=== PATIENT | female | born 1985 | race Caucasian/White ===

== ENCOUNTER 2023-08-02 22:51 | Observation (INO) | payer OTHER, SELFPAY ==
[2023-08-02 16:15] VITALS: BP 124/81
[2023-08-02 16:35] LABS: % Basophils 0.5 % (0-2); % Eosinophils 1.4 % (0-6); % Immature Granulocytes 0.5 % (0-0.5); % Lymphocytes 31.1 % (20.5-51.1); % Monocytes 6.9 % (1.7-9.3); % Neutrophils 59.6 % (42.2-75.2); Absolute Eosinophils 0.1 10^3/uL (0-0.7); Absolute Lymphocytes 1.8 10^3/uL (1.2-3.4); Absolute Monocytes 0.4 10^3/uL (0.1-0.6); Absolute Neutrophils 3.4 10^3/uL (1.4-6.5); Hematocrit 35.2 % (37.0-47.0); Hemoglobin 12.3 g/dL (12.0-16.0); Mean Corp Hgb Conc. 34.9 g/dL (33.0-37.0); Mean Corpuscular Volume 91.7 fL (81.0-99.0); Mean Platelet Volume 8.1 fL (7.4-10.4); Nucleated Red Blood Cells % 0 %; Platelet Count 253 10^3/uL (130-400); Red Blood Cell Count 3.84 10^6/uL (4.20-5.40); Red Cell Dist. Width 12.4 % (11.5-14.5); White Blood Cell Count 5.7 10^3/uL (4.8-10.8)
[2023-08-02 16:44] LABS: HCG, Serum Qualitative Screen Negative
[2023-08-02 16:47] LABS: ALT (SGPT) 13 U/L (0-35); AST (SGOT) 19 U/L (14-36); Albumin 3.6 g/dl (3.5-5.0); Alkaline Phosphatase 66 U/L (38-126); Blood Urea Nitrogen 9 mg/dl (7-17); Calcium 9.2 mg/dl (8.4-10.2); Carbon Dioxide 26 mmol/L (22-30); Chloride 100 mmol/L (98-107); Glucose 98 mg/dl (70-99); Potassium 3.9 mmol/L (3.5-5.1); Sodium 136 mmol/L (135-145); Total Bilirubin 0.5 mg/dl (0.2-1.3); eGFR > 60.00
[2023-08-02 17:04] LABS: COVID-19 Antigen Negative (Negative)
[2023-08-02 17:23] VITALS: BMI 28.1
[2023-08-02 17:57] VITALS: BP 125/70
[2023-08-02 18:00] VITALS: BP 120/66
--- NOTE | 2023-08-02 18:46 | ED.GENMED ---
History of Present Illness
General
Chief Complaint: Headache
Source: patient
Time Seen by Provider: 08/02/23 18:38
Travel History
Have you had any contact with someone who has COVID-19?: No
Do you have any symptoms of coronavirus? Fever > 100 degrees, chills, cough, shortness of breath, sore throat, loss of taste or smell, muscle aches, or headache?: No
History of Present Illness
History of Present Illness:
38-year-old female with past medical history of cluster headaches and chronic migraines, optic neuritis, bipolar disorder/anxiety, hypothyroidism, celiac disease and GERD presenting to the emergency department for evaluation of an acute exacerbation
of her chronic headaches stating that since this morning she has had left-sided headache typical of her usual migraine/cluster headache accompanied with sinus congestion and visual disturbance within the left eye. Patient states that once she
starts to get the visual disturbance within her eyes she normally requires treatment at the ER. Patient attempted to intramuscular doses of sumatriptan hand and a Nurtec however did not have any relief with this with last medication being taken
around 1 PM. Patient has no other acute neurologic symptoms including focal weakness or numbness, chest pain, palpitations, fevers, neck pain or stiffness or any other concerns. She notes that this headache is very typical of her usual and states
that there are no different symptoms than her typical migraine/cluster type headache.
Past History
Past History
ED Past Medical History: Asthma, GERD, Hypothyroidism, Psychiatric (Anxiety, depression, bipolar), Other (Chronic back pain, celiac disease, IBS, PCOS, pneumonia, Cluster headaches, Colitis) and Other (Positive MISTY)
ED Past Surgical History: Cholecystectomy, Orthopedic (Right knee surgery) and Tonsilectomy
Social History
Tobacco: Non-smoker
Alcohol: None
Drug: None
Personal:
Living: with family
Employment: Employed
Family History
Family History: Other (Mother with coronary artery disease and breast cancer)
Review of Systems
Review of Systems
All Other Systems: ROS reviewed and negative except as documented in HPI and ROS
Phy Exam
Physical Exam
Physical Exam:
GENERAL: Alert , sitting in dark room with sunglasses on
EYE: conjunctiva clear, pupils 4 mm bilateral, PERRL, EOMI, patient does flinch when the light was shined into the right eye but did not flinch when the light was shined into the left eye
Head: Normocephalic atraumatic
NECK: Supple, no meningismus
ENT: mmm.
LUNGS: no acute respiratory distress
NEUROLOGICAL: Alert and oriented x 3, moves all extremities
SKIN: Warm and dry, skin intact.
MUSCULOSKELETAL: well perfused.
PSYCH: Normal and appropriate interaction.
Scores
Heart Failure Risk
Heart Failure Risk Score: Not Applicable
Heart Score for Chest Pain Patients
STEMI patient?: Not applicable
Withdrawal Assessment of Alcohol
Withdrawal Assessment Completed?: Not applicable
Course
Orders/Labs/Results
Orders:
Orders
08/02/23 16:18
Test Result ONCE
08/02/23 16:24
C-Reactive Protein Urgent
Comment: ADD ON
COVID-19 Antigen Urgent
Source: Nasal Swab
Complete Blood Count/With Diff Urgent
Comprehensive Metabolic Panel Urgent
Erythrocyte Sed Rate Urgent
Comment: ADD ON
HCG, Serum Qualitative Screen Urgent
Influenza A+B Rapid Molecular Urgent
FELISA Source: Nasal Swab
Specimen Description:
08/02/23 18:46
0.9% Sodium Chloride 1000 ml [Nss] 1,000 ml IV BOLUS
Dexamethasone Sod Phosphate [Decadron] 10 mg IV NOW STA
Diphenhydramine [Benadryl] 50 mg IV NOW STA
Metoclopramide [Reglan] 10 mg IV NOW STA
08/02/23 18:51
Add On- LAB Urgent
Tests Added?: esr/crp
08/02/23 20:18
Ketorolac [Toradol] 30 mg IV NOW STA
Magnesium Sulfate 2 Gram/50 ml [Magnesium Sulfate] 2 gram in 50 ml IV NOW
Abnormal Lab Results
08/02/23
16:24
RBC 3.84 L 10^6/uL
(4.20-5.40)
Hct 35.2 L %
(37.0-47.0)
MCH 32.0 H pg
(27.0-31.0)
Creatinine 1.1 H mg/dL
(0.6-1.0)
Total Protein 6.0 L g/dl
(6.3-8.2)
08/02/23 16:24
08/02/23 16:24
Vital Signs
Initial and Last Documented VS:
Initial Vital Signs
Temp Pulse Resp BP Pulse Ox
98.1 F 92 16 124/81 98
08/02/23 16:15 08/02/23 16:15 08/02/23 16:15 08/02/23 16:15 08/02/23 16:15
Last Documented Vital Signs
Temp Pulse Resp BP Pulse Ox
98.1 F 92 16 120/66 98
08/02/23 16:15 08/02/23 16:15 08/02/23 16:15 08/02/23 18:00 08/02/23 16:15
MDM/Problems Addressed
Differential Diagnosis Includes:
Migraine headache with neurologic features, cluster headache, giant cell arteritis although this is significantly less likely given patient's age, CVA also considered although patient does have lack of neurologic findings
MDM/Problems Addressed:
38-year-old female presenting to the emergency department for evaluation due to an acute on chronic exacerbation of her typical migraine type headache. Patient attempted her home medications including sumatriptan hand as well as Nurtec but did not
have any relief of symptoms. She notes left eye visual disturbance. Patient has been seen at this ER multiple times for similar headaches and has required admission with last admission being in May 2023. Patient notes she has gotten multiple
medications when coming to the emergency department for abortive relief of headache. Based off record review will attempt Reglan, Benadryl and Decadron to start. Reassessment following. Labs were initiated in triage. I did add on an ESR and CRP
given the visual disturbance however I am not very suspicious for giant cell arteritis as a likely diagnosis.
Chronic conditions affecting care: Neurological disorder
Acute Exacerbation and/or Progression of Chronic Illness: Neurological disorder
*Pulse Oximetry
Patient hypoxic: no
*Critical Care Note
Total Time (30-74mins, 75-104mins- exclusive of procedures): Not Applicable
Data Reviewed
Review of Other/Old Records Reveals: Labs, Radiology Studies and Discharge Summary
Source: patient
Patient Management
Discussion with other providers: Hospitalist and Mask Design Engineer
Escalation/DeEscalation of care consider admission/obs:
On first reevaluation patient noted she had 0 relief with Reglan Benadryl and Decadron. Will trial magnesium infusion as well as IV Toradol and reassess following.
On second reevaluation patient noted continued symptoms now noting 9 out of 10 pain. Given patient's persistent symptoms despite multiple IV medications decision was made to admit. I notified neurology team who is in agreement with this plan.
They also would like to avoid IV opioids in this patient as they are aware that she is notoriously difficult to treat. Hospitalist is aware and accepts for continued evaluation and treatment.
ED Attending Note
-
Portions of this chart may have been created with voice recognition software.� Occasional wrong word or��sound alike� substitutions may have occurred due to the inherent limitations of voice recognition software.
Discharge Plan
Departure
Patient Disposition: Admit
Date of Disposition: 08/02/23
Time of Disposition: 21:47
Presentation/result/management discussed w/ accepting MD/DO: Hospitalist
Discharge Problem:
Intractable migraine
Prescriptions:
No Action
fluoxetine [Prozac] 40 MG capsule
80 mg PO DAILY
famotidine 20 MG tablet
20 mg PO BID
ferrous sulfate [FeroSul] 325 MG tablet
325 mg PO DAILY
lamotrigine 100 MG tablet
100 mg PO BID
cholecalciferol (vitamin D3) 2,000 UNITS tablet
2,000 units PO DAILY
polyethylene glycol 3350 [Miralax] 17 gram/dose powder
4 g PO DAILY Qty: 238 0RF
levothyroxine 175 mcg tablet
175 mcg PO DAILY@0500
cetirizine [Zyrtec] 10 mg Tablet
10 mg PO DAILY
sulfamethoxazole-trimethoprim 800-160 mg tablet
1 tab PO DAILY
magnesium oxide 400 mg (241.3 mg magnesium) tablet
400 mg PO TID
azelastine 137 mcg (0.1 %) aerosol,spray
2 spray INTRANASAL BID
verapamil 80 mg tablet
160 mg PO TID
loratadine 10 mg tablet
10 mg PO QPM
budesonide-formoterol [Symbicort] 160-4.5 mcg/actuation HFA aerosol inhaler
2 puff INHALATION R TID
sucralfate [Carafate] 1 gram tablet
1 g PO TID
melatonin 3 mg Tablet
3 - 6 mg PO HS Qty: 0
budesonide-formoterol [Symbicort] 160-4.5 mcg/actuation HFA aerosol inhaler
2 puff INHALATION R Q4HPRN MDD 12 PUFF/24HRS PRN (Reason: SOB)
diphenhydramine HCl [Benadryl] 25 mg capsule
25 mg PO TID PRN (Reason: headache) Qty: 60 0RF
risperidone 1 mg tablet
1 mg PO BID
Spiriva Respimat 1.25 mcg/actuation mist
2 puff INHALATION R DAILY
Emgality Syringe 300 mg/3 mL (100 mg/mL x 3) syringe
0 mg SC MONTHLY
Saline Nasal Mist
1 dose intranasal BID
Rx Instructions:
USE IN NASAL RINSE WITH BUDESONIDE
budesonide
0.5 mg intranasal BID
Rx Instructions:
Budesonide 0.5mg/2ml; ADD 1 VIAL TO A SALINE RINSE AND USE TWICE A DAY
fluticasone propionate 1 SPRAY spray,suspension
2 spray intranasal DAILY PRN (Reason: if nasal rinse unavailable)
prednisone 50 mg Tablet
50 mg PO DAILY 3 Days Qty: 3 0RF
ibuprofen 600 mg tablet
600 mg PO TID 5 Days Qty: 15 0RF
pantoprazole 40 mg Tablet,Delayed Release (Dr/Ec)
40 mg PO DAILY 5 Days Qty: 5 0RF
Rx Instructions:
prophylaxis against GI bleed while on prednisone and Ibuprofen
guaifenesin [Siltussin SA] 100 mg/5 mL Liquid
200 mg PO TID 7 Days Qty: 210 0RF
benzonatate 100 mg Capsule
200 mg PO TIDPRN PRN (Reason: cough) 7 Days Qty: 21 0RF
acetaminophen 325 mg Tablet
650 mg PO TID 5 Days Qty: 30 0RF
prochlorperazine maleate 10 mg Tablet
10 mg PO TID Qty: 30 0RF
Rx Instructions:
three times a day scheduled for 5 days, then reduce to as needed every 8 hours nausea/headache
Referrals:
Henrry Pool DO [Family Provider] -
Interventions
Interventions:
*Risk Screen - Suicide Last Done: 08/02/23 17:23
*General Assessment Last Done: 08/02/23 17:23
*Neglect/Abuse Screening Last Done: 08/02/23 17:23
ED- Fall Risk Assessment Last Done: 08/02/23 17:23
*ED COVID-19 Vaccine History Last Done: 08/02/23 16:15
ED- Neurological Assessment Last Done: 08/02/23 17:23
[2023-08-02] MEDS: DECADRON 10 MG IV (19:00)
[2023-08-02] MEDS: NSS 1000 IV (19:01)
[2023-08-02] MEDS: BENADRYL 50 MG IV (19:01)
[2023-08-02] MEDS: REGLAN 10 MG IV (19:01)
[2023-08-02 19:53] LABS: Erythrocyte Sed Rate 10 mm/hour (0-20)
[2023-08-02] MEDS: TORADOL 30 MG IV (20:52)
[2023-08-02] MEDS: MAGNESIUM SULFATE 50 IV (20:53)
[2023-08-02 22:00] VITALS: BP 118/60
--- NOTE | 2023-08-02 22:37 | HPS.HSE ---
Family Physician
-
Family Physician: Henrry Pool
Chief Complaint
-
Headache
History of Present Illness
Patient is a 38y F with PMH significant for migraine / cluster headaches, CVID and asthma who presents to ED complaining of headache. Patient states that she woke with headache early this AM. She reports symptoms of severe migraine similar to
prior episodes including headache, photophobia, slurred speech and vision loss in the L eye. Patient took sumatriptan injections at 7AM and 11 AM. She took Compazine at 7 AM and Nurtec at 1 PM. No significant relief of her symptoms.
Patient presented to the ED with continued symptoms.
She had similar episode last in 05/2023 and was hospitalized here at that time.
Medical History
Past Medical History
Past Medical History: Reports Other
Additional Past Medical History:
Migraine Headaches / Cluster Headaches
PCOS
Combined Variable Immunodeficiency
Hypothyroidism
Asthma
Obesity
IBS / GERD
Anxiety / Depression
Past Surgical History: Reports Other
Additional Past Surgical History:
Cholecystectomy
Sinus Surgery
Right Knee Arthroscopy
T&A
Social History
Tobacco: Non-smoker
Alcohol: None
Drug: None
Family History
Family History: Not pertinent
Allergies / Home Medications
Allergies reflects when Allergies were last updated in [employer].
Home Medications with original date entered in [employer]
Allergy/Medication List:
Allergies
Allergy/AdvReac Type Severity Reaction Status Date / Time
Milk Containing Products Allergy Unknown Unknown Verified 08/02/23 16:17
(Dairy)
amoxicillin Allergy Hives Verified 08/02/23 16:17
ampicillin Allergy Hives Verified 08/02/23 16:17
aspirin Allergy Unknown Verified 08/02/23 16:17
gluten Allergy stomach Verified 08/02/23 16:17
issues
Penicillins Allergy Hives Verified 08/02/23 16:17
silver Allergy Unknown Verified 08/02/23 16:17
[From [employer]]
Home Medications
fluoxetine 40 mg capsule (Prozac) 80 mg PO HS Depression 07/30/17
famotidine 20 mg tablet 20 mg PO BID acid reflux 04/10/21
cholecalciferol (vitamin D3) 50 mcg (2,000 unit) tablet 2,000 units PO DAILY Supplement 04/22/21
ferrous sulfate 325 mg (65 mg iron) tablet (FeroSul) 325 mg PO DAILY Supplement 04/22/21
lamotrigine 100 mg tablet 100 mg PO BID Neurological Condition 04/22/21
azelastine 137 mcg (0.1 %) nasal spray aerosol 2 spray intranasal BID Allergies 03/05/23
budesonide-formoterol HFA 160 mcg-4.5 mcg/actuation aerosol inhaler (Symbicort) 2 puff inhalation R TID Lung/Breathing Issues 03/05/23
cetirizine 10 mg tablet (Zyrtec) 10 mg PO HS Allergies 03/05/23
levothyroxine 175 mcg tablet 175 mcg PO DAILY@0500 Thyroid 03/05/23
loratadine 10 mg tablet 10 mg PO DAILY Allergies 03/05/23
magnesium oxide 400 mg (241.3 mg magnesium) tablet 400 mg PO TID supplement 03/05/23
melatonin 3 mg tablet 3 - 6 mg PO HS ##0 03/05/23
sucralfate 1 gram tablet (Carafate) 1 g PO TID Gastrointestinal Issue 03/05/23
sulfamethoxazole 800 mg-trimethoprim 160 mg tablet 1 tab PO DAILY Infection 03/05/23
verapamil 80 mg tablet 160 mg PO TID migraine prevention 03/05/23
budesonide-formoterol HFA 160 mcg-4.5 mcg/actuation aerosol inhaler (Symbicort) 2 puff inhalation R Q4HPRN PRN SOB 03/06/23
diphenhydramine HCl 25 mg capsule (Benadryl) 25 mg PO TID PRN headache #60 caps 03/12/23
Saline Nasal Mist 1 dose intranasal BID 06/04/23
budesonide 0.5 mg intranasal BID 06/04/23
fluticasone propionate 50 mcg/actuation nasal spray,suspension 2 spray intranasal DAILY PRN if nasal rinse unavailable 06/04/23
galcanezumab-gnlm 300 mg/3 mL (100 mg/mL x 3) subcutaneous syringe (Emgality) 0 mg SC MONTHLY 06/04/23
risperidone 1 mg tablet 1 mg PO BID 06/04/23
benzonatate 100 mg capsule 200 mg PO TIDPRN PRN cough 7 days #21 caps 06/09/23
buspirone 10 mg tablet 10 mg PO TID 08/02/23
cyclobenzaprine 10 mg tablet 10 mg PO TID PRN muscle spasms 08/02/23
ergocalciferol (vitamin D2) 1,250 mcg (50,000 unit) capsule 1,250 mcg PO FR 08/02/23
folic acid 1 mg tablet 1 mg PO HS 08/02/23
ibuprofen 800 mg tablet 800 mg PO Q8H PRN mild pain 08/02/23
lorazepam 1 mg tablet 1 mg PO TID PRN anxiety 08/02/23
omeprazole 40 mg capsule,delayed release 40 mg PO BID 08/02/23
polyethylene glycol 3350 17 gram/dose oral powder (Miralax) 4 g PO DAILY PRN constipation 08/02/23
prochlorperazine maleate 10 mg tablet 10 mg PO Q8H PRN nausea/vomiting/headache 08/02/23
Review of Systems
-
History Source: Patient
A 12 point ROS was completed and negative except as noted: Yes
Constitutional: Reports Fatigue; Denies Fever or Chills
EENT: Denies Sore Throat
Respiratory: Denies Cough or Trouble Breathing
Cardiac: Denies Chest Pain or Palpitations
Abdomen/GI: Reports Nausea; Denies Abdominal Pain, Vomiting, Diarrhea or Constipated
: Denies Dysuria, Frequency or Flank Pain
Musculoskeletal: Denies Joint Pain or Edema
Neurological: Reports Headache; Denies Dizzy
Psych: Denies Depression or Anxiety
Physical Exam
Vital Signs
Vital Signs
Temp Pulse Resp BP Pulse Ox
98.1 F 92 16 120/66 98
08/02/23 16:15 08/02/23 16:15 08/02/23 16:15 08/02/23 18:00 08/02/23 16:15
Physical Exam
General: Other (38y F in no acute distress.)
HEENT: Moist mucous membranes and Other (Heavy sunglasses in place.)
Respiratory: Clear; No Wheezes, Rales or Rhonchi
Cardiac: S1/S2 and Regular Rhythm; No Murmur
GI: Non Tender, Non Distended, Normal Bowel Sounds and Other (Obese)
Musculoskeletal: No Clubbing, No Cyanosis and No Edema
Neuro: AO x 3
Laboratory Results
-
08/02/23 16:24
08/02/23 16:24
Laboratory Results
Total Bilirubin 0.5 mg/dl (0.2-1.3) 08/02/23 16:24
AST 19 U/L (14-36) 08/02/23 16:24
ALT 13 U/L (0-35) 08/02/23 16:24
Alkaline Phosphatase 66 U/L (38-126) 08/02/23 16:24
Impression/Plan
-
A/P: Patient is a 38y F with PMH significant for migraines, CVID and hypothyroidism who presents to ED complaining of headache.
Intractable Migraine / Cluster Headaches
- Observe overnight for further evaluation and treatment.
- Continue usual home meds / verapamil.
- IV Toradol and prochlorperazine for abortive therapy q8 ATC for now.
- Neurology eval in the AM for further evaluation / recommendations.
- Symptoms of vision loss and slurred speech are c/w prior migraines - not concerned for CVA, etc.
CVID
- Stable. Continue current med regimen including Bactrim prophylaxis.
Asthma without Acute Exacerbation
- Current use of Symbicort is atypical. Not a rescue medication.
- Change to BID and add PRN albuterol.
Bipolar Depression
- Stable. Continue usual meds.
Hypothyroidism
- Stable. Continue T4 supplementation.
- Update TFTs.
GERD
IBS
PCOS
Iron Deficiency
Folate Deficiency
- Stable. Continue outpatient regimen.
Obesity due to excess calories
- Affects all aspects of care.
- Encourage healthy diet and increased exercise with goal of weight loss.
DVT Prophylaxis: Lovenox
Code Status: Full
[2023-08-03 00:03] VITALS: BP 134/88; BMI 40.6
[2023-08-03] MEDS: ATIVAN 1 MG PO ×3 (00:45→21:22)
[2023-08-03] MEDS: COMPAZINE 10 MG IV ×4 (00:45→23:36)
[2023-08-03] MEDS: TORADOL 30 MG IV ×4 (01:10→23:36)
[2023-08-03] MEDS: PEPCID 20 MG PO ×3 (01:11→21:14)
[2023-08-03] MEDS: RISPERDAL 1 MG PO ×3 (01:11→21:14)
[2023-08-03] MEDS: PROZAC 80 MG PO ×2 (01:25→21:18)
[2023-08-03] MEDS: ISOPTIN 160 MG PO ×4 (01:30→21:14)
[2023-08-03] MEDS: SYNTHROID 175 MCG PO (05:05)
[2023-08-03 06:12] LABS: Hematocrit 36.3 % (37.0-47.0); Hemoglobin 12.6 g/dL (12.0-16.0); Mean Corp Hgb Conc. 34.7 g/dL (33.0-37.0); Mean Corpuscular Hgb 31.7 pg (27.0-31.0); Mean Corpuscular Volume 91.2 fL (81.0-99.0); Mean Platelet Volume 8.3 fL (7.4-10.4); Platelet Count 269 10^3/uL (130-400); Red Blood Cell Count 3.98 10^6/uL (4.20-5.40); Red Cell Dist. Width 12.1 % (11.5-14.5)
[2023-08-03 06:42] LABS: Blood Urea Nitrogen 11 mg/dl (7-17); Calcium 9.3 mg/dl (8.4-10.2); Carbon Dioxide 22 mmol/L (22-30); Chloride 104 mmol/L (98-107); Estimated Creatinine Clearance 102 ml/min; Glucose 145 mg/dl (70-99); Potassium 4.8 mmol/L (3.5-5.1); Sodium 133 mmol/L (135-145); eGFR > 60.00
[2023-08-03 07:12] LABS: TSH Reflex To Free T4 0.14 uIU/ml (0.47-4.68)
[2023-08-03 07:28] VITALS: BP 127/79
[2023-08-03 07:41] LABS: Free T4 1.49 ng/dl (0.78-2.19)
[2023-08-03] MEDS: SYMBICORT 160/4.5 MCG INHALER 2 PUFF INH ×2 (07:51→18:32)
[2023-08-03] MEDS: TYLENOL 650 MG PO ×2 (08:50→16:13)
[2023-08-03] MEDS: BACTRIM DS 800 MG/160 MG 1 TABLET PO (08:50)
[2023-08-03] MEDS: LAMICTAL 100 MG PO ×2 (08:50→21:14)
[2023-08-03] MEDS: PROTONIX 40 MG PO ×2 (08:51→21:14)
[2023-08-03] MEDS: MAG-TAB SR 84 MG PO ×3 (08:51→23:36)
[2023-08-03] MEDS: BUSPAR 10 MG PO ×3 (08:51→21:15)
--- NOTE | 2023-08-03 11:08 | CON.NEURO4 ---
Consultation - Neurology 4
-
CONSULTING PHYSICIAN: Antwon
REFERRING PHYSICIAN: Shar
DICTATED BY: Antwon
DATE/TIME OF REQUEST: 08/02/23 late evening
DATE/TIME OF CONSULTATION: 08/03/23 at 10am
Reason for Consultation: headache
History of Present Illness:
38-year-old female with past medical history of migraine and cluster headaches who actively follows with Dr. Kingsley in our clinic, CVID, PCOS, bipolar disorder, celiac disease, hypothyroidism, iron deficiency anemia and obesity who presented
yesterday evening for headache. She stated that she woke up yesterday morning early and had a severe migraine with photophobia, slurred speech and loss of vision in her left eye. She took sumatriptan at 7 AM and 11 AM. She took Compazine at 7 AM
and Nurtec at 1 PM. Vision loss and slurred speech are consistent with her prior migraine. She says that all of the characteristics of her current migraine are consistent with her prior migraines. No focal weakness, numbness, palpitations, neck
pain, or fever/stiffness with these events. This morning she reports that her speech has returned to normal. She still having vision issues in the left eye. When I first came into the room she said her headache improved to an 8 out of 10 but
after talking to me it went up to a 9 out of 10. We continued her home meds including verapamil. She has received IV Toradol, Reglan, Benadryl and Decadron. She also received an infusion of magnesium.
She currently gets Botox injections for headache and is on Emgality as an outpatient as well. She was trying to switch to Qulipta from Emgality as the latter had been causing constipation. She reports that Qulipta was approved by her insurance but
the pharmacy has not had this in stock so she has continued Emgality in the meantime. Her last Emgality injection was 2 weeks ago.
She was admitted in mid May with worsening headaches due to COVID. She was discharged home on the following regimen, taken from Dr. Kingsley's note:
'-NSAID like Ibuprofen 400-600 mg TID or Naproxen for about 5 days following discharge.
-Tylenol with 10 mg Compazine TID for 5 days followign DC
-Okay to use Sumatriptan Saturday (limiting to 2 doses a week to prevent medication overuse headache)
-PRN nurtec at home 2 times a week, has a script for this already
-7 days total Prednisone'
She was also seen by Dr. Irving here in February.
At that time she received:
'Single dose of Dihydroergotamine 1 mg IV, Repeat Prochlorperazine 10 mg IV x 1, Repeat Diphendydramine 25 mg IV x 1, Caffeine 95 mg PO x 1, Iron by IV x 1'
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
Surgical History: Tonsillectomy, cholecystectomy, right knee surgery
Family History:� Non-contributory
Social History:� Engaged, lives with her family, working currently, no tobacco or alcohol
Allergies
Milk Containing Products (Dairy) Allergy (Unknown, Verified 08/02/23 16:17)
Unknown
amoxicillin Allergy (Verified 08/02/23 16:17)
Hives
ampicillin Allergy (Verified 08/02/23 16:17)
Hives
aspirin Allergy (Verified 08/02/23 16:17)
Unknown
gluten Allergy (Verified 08/02/23 16:17)
stomach issues
Penicillins Allergy (Verified 08/02/23 16:17)
Hives
silver [From Tegaderm AG Mesh] Allergy (Verified 08/02/23 16:17)
Unknown
Home Medications Table - record
Medication Instructions Recorded Confirmed
fluoxetine 40 mg capsule (Prozac) 80 mg PO HS Depression 07/30/17 08/02/23
famotidine 20 mg tablet 20 mg PO BID acid reflux 04/10/21 08/02/23
cholecalciferol (vitamin D3) 50 2,000 units PO DAILY Supplement 04/22/21 08/02/23
mcg (2,000 unit) tablet
ferrous sulfate 325 mg (65 mg 325 mg PO DAILY Supplement 04/22/21 08/02/23
iron) tablet (FeroSul)
lamotrigine 100 mg tablet 100 mg PO BID Neurological 04/22/21 08/02/23
Condition
azelastine 137 mcg (0.1 %) nasal 2 spray intranasal BID Allergies 03/05/23 08/02/23
spray aerosol
budesonide-formoterol HFA 160 2 puff inhalation R TID 03/05/23 08/02/23
mcg-4.5 mcg/actuation aerosol Lung/Breathing Issues
inhaler (Symbicort)
cetirizine 10 mg tablet (Zyrtec) 10 mg PO HS Allergies 03/05/23 08/02/23
levothyroxine 175 mcg tablet 175 mcg PO DAILY@0500 Thyroid 03/05/23 08/02/23
loratadine 10 mg tablet 10 mg PO DAILY Allergies 03/05/23 08/02/23
magnesium oxide 400 mg (241.3 mg 400 mg PO TID supplement 03/05/23 08/02/23
magnesium) tablet
melatonin 3 mg tablet 3 - 6 mg PO HS ##0 03/05/23 08/02/23
sucralfate 1 gram tablet (Carafate) 1 g PO TID Gastrointestinal Issue 03/05/23 08/02/23
sulfamethoxazole 800 1 tab PO DAILY Infection 03/05/23 08/02/23
mg-trimethoprim 160 mg tablet
verapamil 80 mg tablet 160 mg PO TID migraine prevention 03/05/23 08/02/23
budesonide-formoterol HFA 160 2 puff inhalation R Q4HPRN PRN SOB 03/06/23 08/02/23
mcg-4.5 mcg/actuation aerosol
inhaler (Symbicort)
diphenhydramine HCl 25 mg capsule 25 mg PO TID PRN headache #60 caps 03/12/23 08/02/23
(Benadryl)
Saline Nasal Mist 1 dose intranasal BID 06/04/23 08/02/23
budesonide 0.5 mg intranasal BID 06/04/23 08/02/23
fluticasone propionate 50 2 spray intranasal DAILY PRN if 06/04/23 08/02/23
mcg/actuation nasal nasal rinse unavailable
spray,suspension
galcanezumab-gnlm 300 mg/3 mL (100 0 mg SC MONTHLY 06/04/23 08/02/23
mg/mL x 3) subcutaneous syringe
(Emgality)
risperidone 1 mg tablet 1 mg PO BID 06/04/23 08/02/23
benzonatate 100 mg capsule 200 mg PO TIDPRN PRN cough 7 days 06/09/23 08/02/23
#21 caps
buspirone 10 mg tablet 10 mg PO TID 08/02/23 08/02/23
cyclobenzaprine 10 mg tablet 10 mg PO TID PRN muscle spasms 08/02/23 08/02/23
ergocalciferol (vitamin D2) 1,250 1,250 mcg PO FR 08/02/23 08/02/23
mcg (50,000 unit) capsule
folic acid 1 mg tablet 1 mg PO HS 08/02/23 08/02/23
ibuprofen 800 mg tablet 800 mg PO Q8H PRN mild pain 08/02/23 08/02/23
lorazepam 1 mg tablet 1 mg PO TID PRN anxiety 08/02/23 08/02/23
omeprazole 40 mg capsule,delayed 40 mg PO BID 08/02/23 08/02/23
release
polyethylene glycol 3350 17 4 g PO DAILY PRN constipation 08/02/23 08/02/23
gram/dose oral powder (Miralax)
prochlorperazine maleate 10 mg 10 mg PO Q8H PRN 08/02/23 08/02/23
tablet nausea/vomiting/headache
Review of Symptoms:
Patient denies any fever, headache, chest pain, shortness of breath, GI or symptoms.
�Per the HPI.�All systems are reviewed negative except above.
Vital Signs
Temp Pulse Resp BP Pulse Ox
98.4 F 94 16 127/79 97
08/03/23 07:28 08/03/23 07:56 08/03/23 07:56 08/03/23 07:28 08/03/23 07:56
Lab Results
08/03/23 05:31
08/03/23 05:31
Sodium 133 mmol/L (135-145) L 08/03/23 05:31
Potassium 4.8 mmol/L (3.5-5.1) 08/03/23:31
BUN 11 mg/dl (7-17) 08/03/23 05:31
Glucose 145 mg/dl (70-99) H 08/03/23 05:31
Calcium 9.3 mg/dl (8.4-10.2) 08/03/23 05:31
Physical Exam:
The patient is afebrile, heart sounds S1 and S2 are regular and chest is clear to auscultation bilaterally.
Neurologic Examination:
The patient is awake, alert and oriented x 3. She is able to follow commands and answer questions appropriately. There is no aphasia or dysarthria. On cranial nerve assessment, pupils are 3 mm bilateral, round and reactive to light and
accommodation. Reports ongoing diminished vision in L eye. Extraocular movements are intact. Facial sensations are intact and bilaterally symmetrical, there is no facial asymmetry. Hearing is intact bilaterally to normal conversation volume. Tongue
palate and uvula are midline. Sternocleidomastoid strengths are full bilaterally. Motor strengths are 5/5 bilateral upper and lower extremities on medical research [place] scale. There is no drift or involuntary movement noted. Deep tendon reflexes
are 2+ bilateral upper and lower extremities and Babinski is absent bilaterally. Sensations of pain, touch, temperature and vibration are intact and bilaterally symmetrical. There was no extinction noted on double simultaneous stimulation.
Coordination is intact by finger to nose bilaterally.
Neuro Imaging: none
Impression:
MAHSA MARSHALL is a 38 year old F who has presented to the hospital with refractory headache; has a long standing history of the same and actively follows in our office with Dr. Kingsley.
Recommendations:
-give single dose of DHE 1mg IV now; last triptan greater than 24 hours ago; discussed with pharmacy
-avoid any opiates
continue Toradol 30mg IV q8, Compazine 10mg IV q8
-add on Benadryl 25mg IV q8
-continue verapamil and magnesium as per outpatient dosing
-also on Risperdal, Ativan, Lamictal, Prozac; going to avoid Depakote as these may interact
-no need for additional imaging as this follows her established cluster/migraine pattern
-continue neurochecks
Will c/t follow.
Discussed patient care with: ed, patient, Dr. Redman
--- NOTE | 2023-08-03 11:22 | W.PN.HOSP.TC ---
Today's Communication/Plan
-
see bold
Assessment / Plan
Assessment / Plan
Gen: NAD, AAOx3.
Neck: supple.
CV: RRR, +S1/S2, no m/r/g.
Resp: CTAB, no rales, wheezes, or rhonchi.
Abd: +BS, soft, NT, ND
Skin: No rashes.
Neuro: CN 2-12 intact, non-focal.
Psych: Normal mood and affect.
CXR: Subtle parenchymal opacity suggested within the left lower lobe, when compared to previous examination. This is suspicious for mild pneumonia, although focal atelectasis could have a similar appearance. No evidence for associated pleural
effusion.
Intractable Migraine/Cluster Headaches:
-Symptoms of vision loss and slurred speech are c/w prior migraines - not concerned for CVA, etc.
-cont standing Compazine/Toradol
-Continue verapamil
-Neurology following, discussed with Dr. Kapoor, will order Benadryl/DHEA
Other problems:
Hyponatremia, mild
CVID: Stable.�Continue current med regimen including Bactrim prophylaxis.
Asthma without Acute Exacerbation: cont Symbicort
Bipolar Depression: cont Prozac/Lamictal/Risperdal/Buspa
Hypothyroidism: TSH low, fT4 normal. Decrease Levoxyl to 150mcg and repeat TFTs in 4 weeks.
GERD: Cont PPI
IBS
PCOS
Iron Deficiency
Folate Deficiency
Morbid obesity due to excess calories: Affects all aspects of care. Encourage weight loss.
FULL/Lovenox
Anticipated Discharge: Within 24 hours
Subjective/Interval History
-
Date of Service: August 03, 2023
Pt c/o persistent headache and L eye visual loss.
Objective Data
-
Labs:
Laboratory Results
08/03/23
05:31
WBC 7.0
Hgb 12.6
Hct 36.3 L
Plt Count 269
Sodium 133 L
Potassium 4.8
Chloride 104
Carbon Dioxide 22
BUN 11
Creatinine 1.0
Glucose 145 H
Calcium 9.3
Vital Signs:
Vital Signs
Temp Pulse Resp BP Pulse Ox
98.4 F 94 16 127/79 97
08/03/23 07:28 08/03/23 07:56 08/03/23 07:56 08/03/23 07:28 08/03/23 07:56
I&O
08/02/23 08/03/23 08/04/23
06:59 06:59 06:59
Intake Total 480 / 480
Balance 480 / 480
[2023-08-03] MEDS: DHE-45 1 MG IV (13:11)
[2023-08-03 15:00] VITALS: BP 158/93
[2023-08-03] MEDS: BENADRYL 50.5 MG IV (16:15)
[2023-08-03] MEDS: FOLVITE 1 MG PO (21:14)
[2023-08-03] MEDS: ZYRTEC 10 MG PO (21:18)
[2023-08-03 23:32] VITALS: BP 111/55
[2023-08-03] MEDS: MELATONIN 5 MG PO (23:35)
[2023-08-04] MEDS: SYNTHROID 150 MCG PO (05:32)
[2023-08-04 07:12] VITALS: BP 129/81
[2023-08-04] MEDS: SYMBICORT 160/4.5 MCG INHALER 2 PUFF INH ×2 (08:22→17:10)
[2023-08-04] MEDS: COMPAZINE 10 MG IV ×3 (08:48→22:56)
[2023-08-04] MEDS: LAMICTAL 100 MG PO ×2 (08:48→20:49)
[2023-08-04] MEDS: TORADOL 30 MG IV (08:48)
[2023-08-04] MEDS: PROTONIX 40 MG PO ×2 (08:48→20:50)
[2023-08-04] MEDS: PEPCID 20 MG PO ×2 (08:49→20:49)
[2023-08-04] MEDS: ISOPTIN 160 MG PO ×3 (08:49→21:02)
[2023-08-04] MEDS: BUSPAR 10 MG PO ×3 (08:49→21:02)
[2023-08-04] MEDS: RISPERDAL 1 MG PO ×2 (08:49→20:50)
[2023-08-04] MEDS: BACTRIM DS 800 MG/160 MG 1 TABLET PO (08:49)
--- NOTE | 2023-08-04 09:34 | W.PN.NEURO.1 ---
Today's Communication / Plan
-
d/c DHE, added to allergy list
add Depakote 500mg IV once now
continue Toradol, Compazine, Benadryl
Neuro Assessment/Plan
Assessment
�MAHSA MARSHALL is a 38 year old F who has presented to the hospital with refractory headache; has a long standing history of the same and actively follows in our office with Dr. Kingsley.
Plan
Recommendations:�
-d/c DHE--added to allergy list--had chest pain and diffuse itching after
-given Depakote IV 500mg once now; reports she was given this for status migrainosus at [place] in the past and it worked well/was well tolerated
-avoid any opiates
continue Toradol 30mg IV q8, Compazine 10mg IV q8, Benadryl 25mg IV q8
-continue verapamil and magnesium as per outpatient dosing
-took Nurtec at home already which was not helpful with this headache but has worked in the past--also it is not on formulary; reports high flow O2 has not been helpful in the past
-also on Risperdal, Ativan, Lamictal, Prozac
-no need for additional imaging as this follows her established cluster/migraine pattern
-continue neurochecks
Will c/t follow.
Subjective/Objective
Subjective Data
Date of Service: August 04, 2023
headache now down to ao 7.5/10; improved with DHE but had two mins of chest pain after as well as itching, required Benadryl
Objective Data
Vital Signs
Temp Pulse Resp BP Pulse Ox
98.1 F 93 16 129/81 99
08/04/23 07:12 08/04/23 08:25 08/04/23 08:25 08/04/23 07:12 08/04/23 08:25
Lab Results
08/03/23 05:31
08/03/23 05:
Sodium 133 mmol/L (135-145) L 08/03/23:
Potassium 4.8 mmol/L (3.5-5.1) 08/03/23:
BUN 11 mg/dl (7-17) 08/03/23 05:
Glucose 145 mg/dl (70-99) H 08/03/23:
Calcium 9.3 mg/dl (8.4-10.2) 08/03/23:
Patient Allergies
dihydroergotamine Allergy (Mild, Verified 08/04/23 09:28)
chest pain
Milk Containing Products (Dairy) Allergy (Unknown, Verified 08/02/23 16:17)
Unknown
amoxicillin Allergy (Verified 08/02/23 16:17)
Hives
ampicillin Allergy (Verified 08/02/23 16:17)
Hives
aspirin Allergy (Verified 08/02/23 16:17)
Unknown
gluten Allergy (Verified 08/02/23 16:17)
stomach issues
Penicillins Allergy (Verified 08/02/23 16:17)
Hives
silver [From Tegaderm AG Mesh] Allergy (Verified 08/02/23 16:17)
Unknown
Physical Exam
-
General: Well Developed, Well Nourished and No Apparent Distress
Extended Neurological Exam
Mood & Affect: Mood Unremarkable and Affect Unremarkable
Attention Span & Concentration: Awake, Alert and Interactive
Memory: Unremarkable
Tremor: Hand Tremor Absent
Involuntary Movement: None
Speech: Quality Unremarkable and Quantity Unremarkable
Cranial Nerve II: Left Eye: Pupillary Reactivity Unremarkable and Pupillary Size Unremarkable
Cranial Nerve II: Right Eye: Pupillary Reactivity Unremarkable and Pupillary Size Unremarkable
Cranial Nerves III, IV, : Extraocular Movement: Extraocular Movement Full in all Directions
Cranial Nerve V: Facial Sensation: Facial Sensation Unremarkable to Cold
Cranial Nerve VII: Facial Symmetry: Normal Facial Symmetry
Cranial Nerve VIII: Hearing: Unremarkable Hearing to Normal Conversational Volume
Cranial Nerves IX, X: Palate Movement: Palate Elevation Symmetric
Cranial Nerve XI: Shoulder Shrug: Unremarkable
Cranial Nerve XII: Tongue Protusion: Midline
Muscle Strength, Overall: Full Throughout
Modified Julio Score (MRS)
-
MRS Score:
--- NOTE | 2023-08-04 10:30 | W.PN.HOSP.TC ---
Today's Communication/Plan
-
see bold
Assessment / Plan
Assessment / Plan
Gen: NAD, AAOx3.
Neck: supple.
CV: remains RRR, +S1/S2, no m/r/g.
Resp: remains CTAB, no rales, wheezes, or rhonchi.
Abd: remains +BS, soft, NT, ND
Skin: No rashes.
Neuro: CN 2-12 intact, non-focal.
Psych: Normal mood and affect.
CXR: Subtle parenchymal opacity suggested within the left lower lobe, when compared to previous examination. This is suspicious for mild pneumonia, although focal atelectasis could have a similar appearance. No evidence for associated pleural
effusion.
Intractable Migraine/Cluster Headaches:
-Symptoms of vision loss and slurred speech are c/w prior migraines - not concerned for CVA, etc.
-stop standing Toradol, OK to continue compazine
-Continue verapamil
-s/p DHEA on 08/03/23 but pt had CP with this medication
-Depakote 500mg IV today (discussed with Dr. Kapoor)
Other problems:
Hyponatremia, mild
CVID: Stable.�Continue current med regimen including Bactrim prophylaxis.
Asthma without Acute Exacerbation: cont Symbicort
Bipolar Depression: cont Prozac/Lamictal/Risperdal/Buspar
Hypothyroidism: TSH low, fT4 normal. Levoxyl decreased to 150mcg and repeat TFTs in 4 weeks.
GERD: Cont PPI
IBS
PCOS
Iron Deficiency
Folate Deficiency
Morbid obesity due to excess calories: Affects all aspects of care. Encourage weight loss.
FULL/Lovenox
Anticipated Discharge: Within 24 hours
Subjective/Interval History
-
Date of Service: August 04, 2023
Headache has improved to 7/10.
Objective Data
-
Vital Signs:
Vital Signs
Temp Pulse Resp BP Pulse Ox
98.1 F 93 16 129/81 99
08/04/23 07:12 08/04/23 08:25 08/04/23 08:25 08/04/23 07:12 08/04/23 08:25
I&O
08/03/23 08/04/23 08/05/23
06:59 06:59 06:59
Intake Total 480 / 480 2099 / 2100
Balance 480 / 480 2099 / 2100
[2023-08-04] MEDS: DEPACON 55 MG IV (10:51)
[2023-08-04] MEDS: MAG-TAB SR 84 MG PO ×3 (10:51→21:00)
[2023-08-04 11:19] LABS: Blood Urea Nitrogen 18 mg/dl (7-17); Carbon Dioxide 22 mmol/L (22-30); Chloride 101 mmol/L (98-107); Estimated Creatinine Clearance 93 ml/min; Glucose 104 mg/dl (70-99); Potassium 4.4 mmol/L (3.5-5.1); Sodium 131 mmol/L (135-145); eGFR > 60.00
[2023-08-04 15:08] VITALS: BP 130/68
--- NOTE | 2023-08-04 15:44 | CM ---
CM following re: d/c planning.
Pt presents to with migraines.
CM met with pt at bedside to complete IA.
Pt resides with family in private residence.
Pt reports she is independent with mobility and ADLs.
No DME or VN in the home.
PCP is Dr. Pool and pharmacy is [facility] in [place].
OBS notice provided.
Pt does not expect any d/c needs.
CM will continue to follow.
[2023-08-04] MEDS: TYLENOL 650 MG PO ×2 (16:19→21:02)
[2023-08-04] MEDS: ATIVAN 1 MG PO (16:23)
--- NOTE | 2023-08-04 17:30 | PTCARENOTE ---
Addendum entered by Sherry Francis RN 08/04/23 18:30:
1814 Checked pt. Pt felt migraine pain decrease after ativan and benadryl given as ordered, continue to monitor.
Original Note:
0 I did give pt tylenol 650 mg po as ordered, pt c/o migraine pain level 7 at that time .Pt called for nurse and mention pain is worst level 9 (tearful).
Pt discussed with me concern toradol 30 mg IV was stopped. Does take 800 mg of motrin po at home every [address] Redman notified via tiger text and concern to avoid NSAIDs at this time. Explain to pt. Pt requested ativan 1 mg po and Benadryl 25
mg IVPB as ordered, continue to monitor pt closely.
[2023-08-04] MEDS: BENADRYL 50.5 MG IV (17:52)
[2023-08-04] MEDS: PROZAC 80 MG PO (21:00)
[2023-08-04] MEDS: ZYRTEC 10 MG PO (21:01)
[2023-08-04] MEDS: FOLVITE 1 MG PO (21:01)
[2023-08-04] MEDS: MELATONIN 3 MG PO (21:52)
[2023-08-04 23:36] VITALS: BP 117/70
[2023-08-05] MEDS: TYLENOL 650 MG PO ×4 (01:11→13:45)
[2023-08-05] MEDS: BENADRYL 50.5 MG IV ×2 (02:30→12:08)
--- NOTE | 2023-08-05 03:06 | VATNOTE ---
08/05 299
Paged by PCN to look at patients IV site. Patient complaining of pain and swelling. Patient with phlebitis to right forearm with redness, swelling and a palpable cord. IV pulled and warm compress applied. Nursing aware.
[2023-08-05] MEDS: SYNTHROID 150 MCG PO (05:35)
[2023-08-05 07:31] LABS: Blood Urea Nitrogen 17 mg/dl (7-17); Calcium 8.6 mg/dl (8.4-10.2); Carbon Dioxide 25 mmol/L (22-30); Chloride 98 mmol/L (98-107); Estimated Creatinine Clearance 102 ml/min; Glucose 74 mg/dl (70-99); Potassium 4.4 mmol/L (3.5-5.1); Sodium 130 mmol/L (135-145); eGFR > 60.00
[2023-08-05 07:45] VITALS: BP 151/4
[2023-08-05] MEDS: PROTONIX 40 MG PO (08:07)
[2023-08-05] MEDS: COMPAZINE 10 MG IV ×2 (08:07→16:09)
[2023-08-05] MEDS: LAMICTAL 100 MG PO (08:07)
[2023-08-05] MEDS: RISPERDAL 1 MG PO (08:07)
[2023-08-05] MEDS: BUSPAR 10 MG PO ×2 (08:07→16:09)
[2023-08-05] MEDS: ISOPTIN 160 MG PO ×2 (08:07→16:09)
[2023-08-05] MEDS: MAG-TAB SR 84 MG PO ×2 (08:07→16:09)
[2023-08-05] MEDS: PEPCID 20 MG PO (08:07)
[2023-08-05] MEDS: BACTRIM DS 800 MG/160 MG 1 TABLET PO (08:15)
--- NOTE | 2023-08-05 08:15 | W.PN.NEURO.1 ---
Documented by User: Evelina Ambriz NP 08/05/23 10:54
Today's Communication / Plan
-
.
Neuro Assessment/Plan
Assessment
�MAHSA MARSHALL is a 38-year-old female who has presented to the hospital on 08/02/23 with refractory headache; has a long standing history of the same and actively follows in our office with Dr. Kingsley.
ER VS: 98.1F, HR 92, BP 124/81, RR 16, 98% RA.
Previous headache workup:
-CT Head 03/10/23: No acute intracranial abnormality.
-MRI Brain 11/22/20: No acute intracranial abnormality noted.
-MRI Cervical Spine 11/23/20: No abnormal cord signal or enhancement.
-MRI Thoracic Spine 11/23/20: No abnormal cord signal or enhancement.
-MRI Lumbar Spine 11/24/20: No abnormal cord signal or enhancement.
-Lumbar Puncture 11/25/20: WBC 1, RBC 0, glucose 94.3, protein 68.7, negative for oligoclonal bands.
I. Refractory migraine headache.
II. Possible adverse reaction to DHE; chest pain and pruritus.
Plan
-Provide Depakote 750mg IV x1 now.
-Checking blood work for metabolic abnormalities, see orders.
-Continue avoiding DHE due to adverse reaction.
-Avoid any opiates.
-Continue Compazine 10mg and Benadryl 25mg q8. Avoiding Toradol due to concern of renal function/Bactrim usage. Can add a short term oral PRN NSAID if needed.
-Patient reports Qulipta is ready/waiting for her at her outpatient pharmacy, shs is going to start this when she gets home.
-Continue verapamil and magnesium as per outpatient dosing.
-Reports high flow O2 has not been helpful in the past.
-Also on Risperdal, Ativan, Lamictal, Prozac. Would consider stopping/changing Risperdal and Prozac as these can induce headaches.
-No need for additional imaging as this follows her established cluster/migraine pattern.
-Continue neurological checks.
-Patient would like to be discharged later today. If patient has no improvement today/isn't ready for discharge home, will continue to follow. Patient should follow-up with Neurology in the next 1-2 weeks, may see the [employer] or Dr. Kingsley.
Subjective/Objective
Subjective Data
Date of Service: August 05, 2023
No acute events overnight. Patient reports that her headache is an 8/10 today. She describes it as left-sided, sharp, and associated with photophobia. Her left eye visual disturbance is improved but vision is still mildly blurry in the left eye.
Speech is no longer slurred. She reports relief yesterday with the one time dose of valproic acid. She denies any dizziness, speech/swallow difficulty, nausea, vomiting, numbness, weakness, chest pain, palpitations, and shortness of breath.
Objective Data
Vital Signs
Temp Pulse Resp BP Pulse Ox
98.1 F 67 18 151/4 99
08/05/23 07:45 08/05/23 07:45 08/05/23 07:45 08/05/23 07:45 08/05/23 07:45
Lab Results
08/03/23 05:31
08/05/23 06:03
Sodium 130 mmol/L (135-145) L 08/05/23 06:03
Potassium 4.4 mmol/L (3.5-5.1) 08/05/23 06:03
BUN 17 mg/dl (7-17) 08/05/23 06:03
Glucose 74 mg/dl (70-99) 08/05/23 06:03
Calcium 8.6 mg/dl (8.4-10.2) 08/05/23 06:03
Patient Allergies
dihydroergotamine Allergy (Mild, Verified 08/04/23 09:28)
chest pain
Milk Containing Products (Dairy) Allergy (Unknown, Verified 08/02/23 16:17)
Unknown
amoxicillin Allergy (Verified 08/02/23 16:17)
Hives
ampicillin Allergy (Verified 08/02/23 16:17)
Hives
aspirin Allergy (Verified 08/02/23 16:17)
Unknown
gluten Allergy (Verified 08/02/23 16:17)
stomach issues
Penicillins Allergy (Verified 08/02/23 16:17)
Hives
silver [From Tegaderm AG Mesh] Allergy (Verified 08/02/23 16:17)
Unknown
Review of Systems
-
History Source: Patient
EENT: Blurry Vision (left eye) and Other (photophobia); Negative Swallowing Difficulty
Cardiac: Negative Chest Pain or Palpitations
Abdomen/GI: Negative Nausea or Vomiting
Genitourinary: Negative Dysuria or Difficulty Voiding
Neuro: Headache; Negative Dizzy, Weakness, Numbness, Ataxia, Tremors or Speech Problem
Physical Exam
-
General: No Apparent Distress
Eyes: No Ptosis and PERRLA
HEENT: Normocephalic and Atraumatic
Neck: Full Range of Motion
Respiratory: No Dyspnea
GI: Non-distended
Extremities: No Clubbing, No Cyanosis and No Edema
Psych: Unremarkable
Extended Neurological Exam
Mood & Affect: Mood Unremarkable and Affect Unremarkable
Attention Span & Concentration: Awake, Alert and Interactive
Memory: Unremarkable and Able to Recall
Tremor: Hand Tremor Absent and Head Tremor Absent
Involuntary Movement: None
Speech: Quality Unremarkable, Quantity Unremarkable and Rate of Production Unremarkable
Cranial Nerve II: Left Eye: Pupillary Reactivity Unremarkable, Pupillary Size Unremarkable and Visual Barrios Reduced (can see finger wiggling in all quadrants, unable to differentiate finger count in all quadrants)
Cranial Nerve II: Right Eye: Pupillary Reactivity Unremarkable, Pupillary Size Unremarkable and Visual Barrios Intact
Cranial Nerves III, IV, : Extraocular Movement: Extraocular Movement Full in all Directions
Cranial Nerve VII: Facial Symmetry: Normal Facial Symmetry
Cranial Nerve VIII: Hearing: Unremarkable Hearing to Normal Conversational Volume
Cranial Nerves IX, X: Palate Movement: Palate Elevation Symmetric
Cranial Nerve XI: Shoulder Shrug: Unremarkable
Cranial Nerve XII: Tongue Protusion: Midline
Muscle Strength, Overall: Full Throughout
Muscle Bulk & Tone: Bulk Unremarkable and Tone Unremarkable
Pronator Drift: No Drift in Upper Extremities and No Drift in Lower Extremities
Deep Tendon Reflexes: Unremarkable Throughout
Cold Sensation: Unremarkable
Vibration Sensation: Unremarkable
Touch Sensation: Double Simultaneous Stimulation Unremarkable
Coordination: [id number] Testing Unremarkable
Babinski Sign: Absent Bilaterally
Modified De Baca Score (MRS)
-
MRS Score:
Data Reviewed
-
Labs: Report Reviewed
Reviewed with: Physician and Patient
Medications
-
Active Medications
Generic Name Dose Route Start Last Admin
Trade Name Freq PRN Reason Stop Dose Admin
Acetaminophen 650 mg 08/02/23 23:53 08/05/23 05:34
Acetaminophen 325 Mg Tablet PO 08/30/23 23:52 650 mg
Q4HPRN PRN Administration
Mild Pain / Temp > 101
Albuterol Sulfate 2.5 mg 08/02/23 23:53
Albuterol Nebs 2.5 Mg/3 Ml Ampul INH 08/30/23 23:52
R Q4HPRN PRN
SOB
Protocol
Budesonide/Formoterol Fumarate 2 puff 08/03/23 08:00 08/04/23 17:10
Symbicort Inhaler 160/4.5 INH 08/31/23 07:59 2 puff
R BID VENKATA Administration
Protocol
Buspirone HCl 10 mg 08/03/23 08:00 08/04/23 21:02
Buspirone 10 Mg Tablet PO 08/31/23 07:59 10 mg
TID VENKATA Administration
Cetirizine HCl 10 mg 08/03/23 22:00 08/04/23 21:01
Cetirizine Hcl 10 Mg Tablet PO 08/31/23 21:59 10 mg
HS VENKATA Administration
Enoxaparin Sodium 40 mg 08/03/23 18:00 08/04/23 17:38
Enoxaparin Sodium 40 Mg/0.4 Ml Syringe SC 08/31/23 17:59 Not Given
QPM VENKATA
Famotidine 20 mg 08/03/23 08:00 08/04/23 20:49
Famotidine 20 Mg Tablet PO 08/31/23 07:59 20 mg
BID VENKATA Administration
Fluoxetine HCl 80 mg 08/03/23 22:00 08/04/23 21:00
Fluoxetine 20 Mg Capsule PO 08/31/23 21:59 80 mg
HS VENKATA Administration
Folic Acid 1 mg 08/03/23 22:00 08/04/23 21:01
Folic Acid 1 Mg Tablet PO 08/31/23 21:59 1 mg
HS VENKATA Administration
Diphenhydramine HCl 25 mg/ 50.5 mls @ 202 mls/hr 08/03/23 11:49 08/05/23 02:30
Sodium Chloride IV 08/31/23 11:48 50.5 mls
Q8HPRN PRN Administration
migraine
Lamotrigine 100 mg 08/03/23 08:00 08/04/23 20:49
Lamotrigine 100 Mg Tablet PO 08/31/23 07:59 100 mg
BID VENKATA Administration
Levothyroxine Sodium 150 mcg 08/04/23 05:00 08/05/23 05:35
Levothyroxine 150 Mcg Tablet PO 09/01/23 04:59 150 mcg
DAILY@0500 VENKATA Administration
Lorazepam 1 mg 08/02/23 23:53 08/04/23 16:23
Lorazepam 1 Mg Tablet PO 08/30/23 23:52 1 mg
TID PRN Administration
anxiety
Magnesium 84 mg 08/03/23 08:00 08/04/23 21:00
Magnesium Lactate 84 Mg Tablet PO 08/31/23 07:59 84 mg
TID VENKATA Administration
Melatonin 3 mg 08/04/23 22:00 08/04/23 21:52
Melatonin 3 Mg Tablet PO 09/01/23 21:59 3 mg
HS VENKATA Administration
Pantoprazole Sodium 40 mg 08/03/23 08:00 08/04/23 20:50
Pantoprazole 40 Mg Delayed Release Tablet PO 08/31/23 07:59 40 mg
BID VENKATA Administration
Prochlorperazine Edisylate 10 mg 08/02/23 23:53 08/04/23 22:56
Prochlorperazine 10 Mg/2 Ml Vial IV 08/30/23 23:52 10 mg
Q8H VENKATA Administration
Risperidone 1 mg 08/03/23 08:00 08/04/23 20:50
Risperidone 1 Mg Tablet PO 08/31/23 07:59 1 mg
BID VENKATA Administration
Sodium Chloride 0 flush 08/03/23 01:00
Sodium Chloride 0.9% (Flush) Syringe IV 08/31/23 00:59
PER PROTOCOL VENKATA
Trimethoprim/Sulfamethoxazole 1 tablet 08/03/23 08:00 08/04/23 08:49
Sulfamethoxazole (800 Mg)/Trimethoprim (160 Mg) Tablet PO 1 tablet
DAILY VENKATA Administration
Verapamil HCl 160 mg 08/03/23 08:00 08/04/23 21:02
Verapamil 80 Mg Tablet PO 08/31/23 07:59 160 mg
TID VENKATA Administration
Home Medications
Medication Instructions Recorded
fluoxetine 40 mg capsule (Prozac) 80 mg PO HS Depression 07/30/17
famotidine 20 mg tablet 20 mg PO BID acid reflux 04/10/21
cholecalciferol (vitamin D3) 50 2,000 units PO DAILY Supplement 04/22/21
mcg (2,000 unit) tablet
ferrous sulfate 325 mg (65 mg 325 mg PO DAILY Supplement 04/22/21
iron) tablet (FeroSul)
lamotrigine 100 mg tablet 100 mg PO BID Neurological 04/22/21
Condition
azelastine 137 mcg (0.1 %) nasal 2 spray intranasal BID Allergies 03/05/23
spray aerosol
budesonide-formoterol HFA 160 2 puff inhalation R TID 03/05/23
mcg-4.5 mcg/actuation aerosol Lung/Breathing Issues
inhaler (Symbicort)
cetirizine 10 mg tablet (Zyrtec) 10 mg PO HS Allergies 03/05/23
levothyroxine 175 mcg tablet 175 mcg PO DAILY@0500 Thyroid 03/05/23
loratadine 10 mg tablet 10 mg PO DAILY Allergies 03/05/23
magnesium oxide 400 mg (241.3 mg 400 mg PO TID supplement 03/05/23
magnesium) tablet
melatonin 3 mg tablet 3 - 6 mg PO HS Sleep ##0 03/05/23
sucralfate 1 gram tablet (Carafate) 1 g PO TID Gastrointestinal Issue 03/05/23
sulfamethoxazole 800 1 tab PO DAILY Infection 03/05/23
mg-trimethoprim 160 mg tablet
verapamil 80 mg tablet 160 mg PO TID migraine prevention 03/05/23
budesonide-formoterol HFA 160 2 puff inhalation R Q4HPRN PRN SOB 03/06/23
mcg-4.5 mcg/actuation aerosol
inhaler (Symbicort)
diphenhydramine HCl 25 mg capsule 25 mg PO TID PRN headache #60 caps 03/12/23
(Benadryl)
Saline Nasal Mist 1 dose intranasal BID Congestion 06/04/23
budesonide 0.5 mg intranasal BID 06/04/23
fluticasone propionate 50 2 spray intranasal DAILY PRN if 06/04/23
mcg/actuation nasal nasal rinse unavailable
spray,suspension
galcanezumab-gnlm 300 mg/3 mL (100 0 mg SC MONTHLY headaches 06/04/23
mg/mL x 3) subcutaneous syringe
(Emgality)
risperidone 1 mg tablet 1 mg PO BID Mental Health/Anxiety 06/04/23
benzonatate 100 mg capsule 200 mg PO TIDPRN PRN cough 7 days 06/09/23
#21 caps
buspirone 10 mg tablet 10 mg PO TID Mental Health/Anxiety 08/02/23
cyclobenzaprine 10 mg tablet 10 mg PO TID PRN muscle spasms 08/02/23
ergocalciferol (vitamin D2) 1,250 1,250 mcg PO FR Supplement 08/02/23
mcg (50,000 unit) capsule
folic acid 1 mg tablet 1 mg PO HS Supplement 08/02/23
ibuprofen 800 mg tablet 800 mg PO Q8H PRN mild pain 08/02/23
lorazepam 1 mg tablet 1 mg PO TID PRN anxiety 08/02/23
omeprazole 40 mg capsule,delayed 40 mg PO BID Gastrointestinal Issue 08/02/23
release
polyethylene glycol 3350 17 4 g PO DAILY PRN constipation 08/02/23
gram/dose oral powder (Miralax)
prochlorperazine maleate 10 mg 10 mg PO Q8H PRN 08/02/23
tablet nausea/vomiting/headache

Documented by User: Aliya Gordon MD 08/05/23 15:40
Neuro Assessment/Plan
Assessment
I. Refractory chronic migraine with aura
II. Hyponatremia
III. Common variable immunodeficiency
Plan
-Depakote 750 mg IV Q12h IV PRN
-EKG (QT monitoring)
-Continue Compazine 10 mg, Benadryl 25 mg, Toradol 15mg Q8h IV PRN
-Continue verapamil 160 mg QD and magnesium
-Consider alternative therapy to Risperdal and Prozac(known to cause headache as a side effect)
-follow-up with Neurology in the next 1-2 weeks
Subjective/Objective
Subjective Data
Date of Service: August 05, 2023
No acute events overnight. Patient reports that her headache is an 8/10 today. She describes it as left-sided, sharp, and associated with photophobia. Her left eye visual disturbance is improved but vision is still mildly blurry in the left eye.
Speech is no longer slurred. She reports relief yesterday with valproic acid 500 mg. She denies any dizziness, speech/swallow difficulty, nausea, vomiting, numbness, weakness, chest pain, palpitations, and shortness of breath.
DHE(08/02/2023) caused pruritis/chest discomfort
Labs: Na-130, normal free T4, WBC, neg SARS-Cov-2
MAR: Tylenol 650 mg QD, Ketorolac 40 mg IV QD, Chlorperazine 10 mg QD
Possible adverse reaction to DHE; chest pain and pruritus.
Chart review:
-CT Head 03/10/23: No acute intracranial abnormality.
-MRI Brain 11/22/20: No acute intracranial abnormality noted.
-MRI Cervical Spine 11/23/20: No abnormal cord signal or enhancement.
-MRI Thoracic Spine 11/23/20: No abnormal cord signal or enhancement.
-MRI Lumbar Spine 11/24/20: No abnormal cord signal or enhancement.
-Lumbar Puncture 11/25/20: WBC 1, RBC 0, glucose 94.3, protein 68.7, negative for oligoclonal bands.
[2023-08-05] MEDS: SYMBICORT 160/4.5 MCG INHALER 2 PUFF INH (08:31)
[2023-08-05 10:21] LABS: Magnesium 1.9 mg/dl (1.6-2.3)
[2023-08-05 10:25] LABS: D-Dimer 0.29 ug/mlFEU (0.00-0.50)
[2023-08-05] MEDS: DEPACON 57.5 MG IV (10:30)
[2023-08-05 10:51] LABS: TSH Reflex To Free T4 0.42 uIU/ml (0.47-4.68)
[2023-08-05 11:19] LABS: Free T4 1.35 ng/dl (0.78-2.19)
--- NOTE | 2023-08-05 11:55 | W.PN.HOSP.TC ---
Today's Communication/Plan
-
d/c
Assessment / Plan
Assessment / Plan
Gen: NAD, AAOx3.
Neck: supple.
CV: continues to remain RRR, +S1/S2, no m/r/g.
Resp: continues to remain CTAB, no rales, wheezes, or rhonchi.
Abd: continues to remain +BS, soft, NT, ND
Skin: No rashes.
Neuro: CN 2-12 intact, non-focal.
Psych: Normal mood and affect.
CXR: Subtle parenchymal opacity suggested within the left lower lobe, when compared to previous examination. This is suspicious for mild pneumonia, although focal atelectasis could have a similar appearance. No evidence for associated pleural
effusion.
Intractable Migraine/Cluster Headaches:
-Symptoms of vision loss and slurred speech are c/w prior migraines - not concerned for CVA, etc.
-was on standing Toradol, now stopped
-OK to continue compazine
-Continue verapamil
-s/p DHEA on 08/03/23 but pt had CP with this medication
-Depakote 500mg IV given 08/04/23
-Depakote 750mg IV given 08/05/23
-note, pt has Qulipta ready for cook pickled meat at outpt pharmacy
Other problems:
Hyponatremia, mild
CVID: Stable.�Continue current med regimen including Bactrim prophylaxis.
Asthma without Acute Exacerbation: cont Symbicort
Bipolar Depression: cont Prozac/Lamictal/Risperdal/Buspar
Hypothyroidism: TSH low, fT4 normal. Levoxyl decreased to 150mcg and repeat TFTs in 4 weeks.
GERD: Cont PPI
IBS
PCOS
Iron Deficiency
Folate Deficiency
Morbid obesity due to excess calories: Affects all aspects of care. Encourage weight loss.
FULL/Lovenox
Total time spent on d/c = 31 min. This included today's physical exam, progress note, review of laboratory and diagnostic data, preparation of discharge documents and prescriptions, and discussions about the pt's hospital course and discharge plan
with the patient and other veterinary medical officer involved in the patient's care.
Anticipated Discharge: Today
Subjective/Interval History
-
Date of Service: August 05, 2023
Patient reports headache is 7/10 today.
Objective Data
-
Labs:
Laboratory Results
08/05/23
06:03
Sodium 130 L
Potassium 4.4
Chloride 98
Carbon Dioxide 25
BUN 17
Creatinine 1.0
Glucose 74
Calcium 8.6
Vital Signs:
Vital Signs
Temp Pulse Resp BP Pulse Ox
98.1 F 94 16 151/4 98
08/05/23 07:45 08/05/23 08:35 08/05/23 08:35 08/05/23 07:45 08/05/23 08:35
I&O
08/04/23 08/05/23 08/06/23
06:59 06:59 06:59
Intake Total 2099 5430 / 5430
Balance 2099 5430 / 5430
--- NOTE | 2023-08-05 12:24 | W.DCSUMMARY ---
Discharge Summary
Discharge Data
Date of Admission: 08/02/23
Date of Discharge: 08/05/23
-
Pending Results: No
Hospital Course
Primary diagnoses:
Secondary diagnoses:
Hyponatremia
Combined variable immunodeficiency
Asthma without Acute Exacerbation
Bipolar Depression
Hypothyroidism
Gastroesophageal reflux disease
Irritable bowel syndrome
Polycystic ovarian syndrome
Iron Deficiency
Folate Deficiency
Morbid obesity due to excess calories
Consultants:
Neurology
Imaging:
None
Hospital course: 38-year-old female who presented with chief complaint of headache as outlined in H&P done on admission. The patient had a history of migraine and cluster headaches. She had an intractable intractable Migraine/Cluster Headache
which necessitated admission. She had symptoms of vision loss and slurred speech were consistent with prior migraines. Patient was seen in consultation by neurology. She was on standing Toradol which was stopped prior to discharge. She was on
standing Compazine. Her verapamil was continued. She received DHEA on 08/03/23 but but had chest pain with this medication. She received Depakote 500mg IV on 08/04/23 and Depakote 750mg IV on 08/05/23. Note, the patient had Qulipta ready for package pick up
at her outpatient pharmacy. She was discharged in medically stable condition.
Discharge Plan
-
Patient Disposition: Home (Routine Discharge)
Discharge Diagnosis/Procedures: Intractable Migraine/Cluster Headache
Condition: Good
Diet: Regular
Activity: As tolerated
Driving Restrictions: As prior to admission
Blood Work: TSH and fT4 in 4 weeks, scripts from PCP
Referrals:
Henrry Pool DO [Family Provider] - in less than 1 week
Prescriptions:
New
levothyroxine 150 mcg Tablet
150 mcg PO DAILY@0500 Qty: 30 0RF
Continued
fluoxetine [Prozac] 40 MG capsule
80 mg PO HS
famotidine 20 MG tablet
20 mg PO BID
ferrous sulfate [FeroSul] 325 MG tablet
325 mg PO DAILY
lamotrigine 100 MG tablet
100 mg PO BID
cholecalciferol (vitamin D3) 2,000 UNITS tablet
2,000 units PO DAILY
cetirizine [Zyrtec] 10 mg Tablet
10 mg PO HS
sulfamethoxazole-trimethoprim 800-160 mg tablet
1 tab PO DAILY
magnesium oxide 400 mg (241.3 mg magnesium) tablet
400 mg PO TID
azelastine 137 mcg (0.1 %) aerosol,spray
2 spray INTRANASAL BID
verapamil 80 mg tablet
160 mg PO TID
loratadine 10 mg tablet
10 mg PO DAILY
budesonide-formoterol [Symbicort] 160-4.5 mcg/actuation HFA aerosol inhaler
2 puff INHALATION R TID
sucralfate [Carafate] 1 gram tablet
1 g PO TID
melatonin 3 mg Tablet
3 - 6 mg PO HS Qty: 0
budesonide-formoterol [Symbicort] 160-4.5 mcg/actuation HFA aerosol inhaler
2 puff INHALATION R Q4HPRN MDD 12 PUFF/24HRS PRN (Reason: SOB)
diphenhydramine HCl [Benadryl] 25 mg capsule
25 mg PO TID PRN (Reason: headache) Qty: 60 0RF
risperidone 1 mg tablet
1 mg PO BID
Emgality Syringe 300 mg/3 mL (100 mg/mL x 3) syringe
0 mg SC MONTHLY
Saline Nasal Mist
1 dose intranasal BID
Rx Instructions:
USE IN NASAL RINSE WITH BUDESONIDE
budesonide
0.5 mg intranasal BID
Rx Instructions:
Budesonide 0.5mg/2ml; ADD 1 VIAL TO A SALINE RINSE AND USE TWICE A DAY
fluticasone propionate 1 SPRAY spray,suspension
2 spray intranasal DAILY PRN (Reason: if nasal rinse unavailable)
benzonatate 100 mg Capsule
200 mg PO TIDPRN PRN (Reason: cough) 7 Days Qty: 21 0RF
cyclobenzaprine 10 mg tablet
10 mg PO TID PRN (Reason: muscle spasms)
ibuprofen 800 mg tablet
800 mg PO Q8H PRN (Reason: mild pain)
omeprazole 40 mg capsule,delayed release(DR/EC)
40 mg PO BID
buspirone 10 mg tablet
10 mg PO TID
folic acid 1 mg Tablet
1 mg PO HS
ergocalciferol (vitamin D2) 1,250 mcg (50,000 unit) capsule
1,250 mcg PO FR
lorazepam 1 mg tablet
1 mg PO TID PRN (Reason: anxiety)
Patient Comments:
08/02/2023: last filled 02/11/23, 30 tabs for 30 days from [facility]
prochlorperazine maleate 10 mg tablet
10 mg PO Q8H PRN (Reason: nausea/vomiting/headache)
Rx Instructions:
three times a day scheduled for 5 days, then reduce to as needed every 8 hours nausea/headache
polyethylene glycol 3350 [Miralax] 17 gram/dose powder
4 g PO DAILY PRN (Reason: constipation)
Discontinued
levothyroxine 175 mcg tablet
175 mcg PO DAILY@0500
Discharge Orders:
Discharge Patient (As Directed); Ordered 08/05/23
Ordered By: Jacob Redman
--- NOTE | 2023-08-05 12:46 | VATNOTE ---
Patient with phlebitis to right forearm with redness, swelling and a palpable cord. No drainage noted; area warm to touch, which patient contributes to tegaderm sensitivity. Warm compress applied.
--- NOTE | 2023-08-05 13:21 | CM ---
Chart reviewed and patient to return to home today, no needs.
Plan; Home no needs.
[2023-08-05 15:10] VITALS: BP 126/71
[2023-08-05 16:46] LABS: Lyme Antibody Screen, EIA Negative (Negative)
== END 2023-08-05 17:13 | disposition home or self-care (01) ==
LOC: 4 WEST ACU 22:51
PROVIDERS: Emergency Medicine; Registered Nurse Critical Care Medicine; ADMITTING PHYSICIAN Hospitalist; ATTENDING PHYSICIAN Internal Medicine; CONSULT PHYSICIAN Psychiatry & Neurology Neurology; EMERGENCY PHYSICIAN Emergency Medicine; FAMILY PHYSICIAN Family Medicine
DX: G43.119 Migraine with aura, intractable, without status migrainosus (principal); R47.81 Slurred speech; H54.62 Unqualified visual loss, left eye, normal vision right eye; H53.142 Visual discomfort, left eye; K21.9 Gastro-esophageal reflux disease without esophagitis; H46.9 Unspecified optic neuritis; R09.81 Nasal congestion; F31.9 Bipolar disorder, unspecified; F41.9 Anxiety disorder, unspecified; E03.9 Hypothyroidism, unspecified; K90.0 Celiac disease; K58.9 Irritable bowel syndrome, unspecified; E66.01 Morbid (severe) obesity due to excess calories; G89.29 Other chronic pain; E53.8 Deficiency of other specified B group vitamins; M54.9 Dorsalgia, unspecified; D83.9 Common variable immunodeficiency, unspecified; E87.1 Hypo-osmolality and hyponatremia; E28.2 Polycystic ovarian syndrome; Z87.01 Personal history of pneumonia (recurrent); Z80.3 Family history of malignant neoplasm of breast; Z82.49 Family history of ischemic heart disease and other diseases of the circulatory system; Z79.890 Hormone replacement therapy; Z79.51 Long term (current) use of inhaled steroids; Z79.52 Long term (current) use of systemic steroids; Z79.899 Other long term (current) drug therapy; J45.909 Unspecified asthma, uncomplicated; Z68.41 Body mass index [BMI] 40.0-44.9, adult; Z88.6 Allergy status to analgesic agent; Z91.011 Allergy to milk products; Z88.0 Allergy status to penicillin; Z91.018 Allergy to other foods; Z11.52 Encounter for screening for COVID-19
CPT/HCPCS: 80048; 80053; 83735; 84439; 84443; 84703; 85025; 85027; 85379; 85652; 86140; 86618; 87502; 87811; 94640; 96361; 96365; 96366; 96375; 99285; G0378

== ENCOUNTER 2023-11-10 22:45 | Observation (INO) | payer OTHER, SELFPAY ==
[2023-11-10 15:28] VITALS: BP 160/93
--- NOTE | 2023-11-10 16:38 | ED.GENMED ---
History of Present Illness
<Agueda Camarena PA-C - Last Filed: 11/12/23 11:24>
General
Chief Complaint: Headache
Source: patient and records
Exam Limitations: none
Time Seen by Provider: 11/10/23 16:30
Nursing documentation reviewed up to this point in time: agreed with
Travel History
Have you had any contact with someone who has COVID-19?: No
Do you have any symptoms of coronavirus? Fever > 100 degrees, chills, cough, shortness of breath, sore throat, loss of taste or smell, muscle aches, or headache?: Yes
Symptoms:: BUCIO
History of Present Illness
History of Present Illness:
38-year-old female with past medical history of cluster headaches, migraine headaches, IBS, anxiety, optic neuritis presenting emergency department today with a headache. Patient states that she started with a headache today and subsequently
injected a dose of sumatriptan. Patient states that after injection, she started to experience facial pain and burning which she states is a common side effect of her with the sumatriptan and usually will resolve within a few seconds. Patient
states however, the side effect did not resolve and her facial pain persist. Patient called her neurologist who recommended ER evaluation. Patient follows with Dr. Kingsley and Dr. Ribeiro. Patient states that she feels her headache currently
behind her left eye, she has also had a lot of nausea but no vomiting. Patient denies any visual changes. Patient denies any changes to her hearing. Patient does note some photophobia. Patient also is taking Benadryl at 1:30 PM today which did
not give her much relief. Patient has a history of recurrent hospitalizations for intractable headaches. Patient denies any syncopal episodes. Patient states that she has tried oxygen therapy in the past for cluster headaches which did not help
Past History
<Agueda Camarena PA-C - Last Filed: 11/12/23 11:24>
Past History
ED Past Medical History: Asthma, GERD, Hypothyroidism, Psychiatric (Anxiety, depression, bipolar), Other (Chronic back pain, celiac disease, IBS, PCOS, pneumonia, Cluster headaches, Colitis) and Other (Positive MISTY)
ED Past Surgical History: Cholecystectomy, Orthopedic (Right knee surgery) and Tonsilectomy
Social History
Tobacco: Non-smoker
Alcohol: None
Drug: None
Personal:
Living: with family
Employment: Employed
Family History
Family History: Other (Mother with coronary artery disease and breast cancer)
Review of Systems
<Agueda Camarena PA-C - Last Filed: 11/12/23 11:24>
Review of Systems
All Other Systems: ROS reviewed and negative except as documented in HPI and ROS
Phy Exam
<Agueda Camarena PA-C - Last Filed: 11/12/23 11:24>
Physical Exam
Physical Exam:
General: Patient is well appearing and in no acute distress; non-toxic
Skin: Warm and dry, no rashes or lesions
Head: Normocephalic, atraumatic
Eyes: Sclera non-icteric. EOMs intact. PERRLA.
Cardiac: Regular rate
Peripheral Vascular: No lower extremity swelling or edema.
Pulm: Normal respiratory effort
Abdomen: No abdominal tenderness
Neuro: CN II-XII intact, no focal neurologic deficits.
Psychiatric: Appropriate mood and affect.
Course
<Agueda Camarena PA-C - Last Filed: 11/12/23 11:24>
Orders/Labs/Results
Orders:
Orders
11/10/23 Dinner
Gluten Free
At Your Request: Full Participation
Gluten Free: Low Lactose
11/10/23 17:03
0.9% Sodium Chloride 1000 ml [Nss] 1,000 ml IV BOLUS
Diphenhydramine [Benadryl] 25 mg IV NOW STA
Ketorolac [Toradol] 15 mg IV NOW STA
Prochlorperazine [Compazine] 5 mg IV NOW STA
11/10/23 17:55
Dexamethasone Sod Phosphate [Decadron] 10 mg IV NOW STA
11/10/23 18:18
HYDROmorphone [Dilaudid] 1 mg IV NOW STA
11/10/23 19:18
HYDROmorphone [Dilaudid] 1 mg IV NOW STA
11/10/23 20:41
HYDROmorphone [Dilaudid] 1 mg IV NOW STA
11/10/23 20:46
Complete Blood Count/With Diff Urgent
Comprehensive Metabolic Panel Urgent
11/10/23 20:47
Electrocardiogram (*1) Urgent
Reason for Study: Chest Pain
EKG- Treatment ONCE
11/10/23 21:05
Valproate Sodium [Depacon] 500 mg 0.9% Sodium Chloride 50 ml [Nss] 50 ml IV NOW
11/10/23 21:38
Consult Neurology [NEUROLOGY CONSULT] Routine
Consulting Provider: Migdalia Kapoor
Was physician already notified: Yes
11/10/23 22:21
Admit/Transfer Patient As Directed
Co-Sign Provider:
Level of Care: Observation services
Assign to:: Medical/Surgical
Physician / Group: steven velazquez
Diagnosis: intractable migraine
Lorazepam [Ativan] 1 mg PO NOW STA
Metoclopramide [Reglan] 10 mg IV NOW STA
Metoclopramide [Reglan] 10 mg IV Q6HPRN PRN
11/10/23 22:22
Code Status As Directed
Resuscitation Status: Full Code
11/10/23 23:00
Flush (0.9% Sodium Chloride) [Flush (Nss)] See Dose Instructions IV PER PROTOCOL
11/10/23 23:50
Acetaminophen [Tylenol] 650 mg PO Q4HPRN PRN
Benzonatate [Tessalon Perles] 200 mg PO TIDPRN PRN
Budesonide/Formoterol 160/4.5 [Symbicort 160/4.5 Mcg Inhaler] 2 puff INH R Q4HPRN PRN
Lorazepam [Ativan] 1 mg PO TIDPRN PRN
Prochlorperazine [Compazine] 10 mg PO Q8H PRN
fluticasone propionate 2 spray NASAL DAILY PRN
11/10/23 23:50
Activity As Directed
Activity Level: As Tolerated
Pneumatic Compression Sleeves As Directed
Type: Knee high
Vital Signs As Directed
Frequency: Per unit guidelines
Ot Eval And Treat Routine
Pt Eval And Treat Routine
Activity Level: As Tolerated
DX Deep Vein Thrombosis Video Routine
11/11/23 05:16
Basic Metabolic Panel IN AM
Complete Blood Count/With Diff IN AM
11/11/23 06:00
EKG [Electrocardiogram (*1)] IN AM
Reason for Study: QTc Monitoring
Levothyroxine [Synthroid] 175 mcg PO DAILY @ 0600
11/11/23 08:00
Budesonide/Formoterol 160/4.5 [Symbicort 160/4.5 Mcg Inhaler] 2 puff INH R TID
Buspirone [Buspar] 15 mg PO TID
Famotidine [Pepcid] 20 mg PO BID
Ferrous Sulfate [Feosol] 325 mg PO DAILY
Lamotrigine [Lamictal] 100 mg PO BID
Magnesium Oxide 500 mg PO TID
Pantoprazole [Protonix] 40 mg PO BID
Risperidone [Risperdal] 1 mg PO BID
Sucralfate [Carafate] 1 gram PO TID
Sulfamethox./Trimethoprim Ds [Bactrim Ds 800 mg/160 mg] 1 tablet PO DAILY
Verapamil [Isoptin] 160 mg PO TID
azelastine 2 spray NASAL BID
budesonide 0.5 mg NASAL BID
11/11/23 22:00
Cetirizine HCl [Zyrtec] 10 mg PO HS
FOLic ACID [Folvite] 1 mg PO HS
Fluoxetine HCl [Prozac] 80 mg PO HS
Melatonin 3 mg PO HS
11/15/23 08:00
Ergocalciferol [Drisdol (Vitamin D2)] 50,000 units PO FR
Abnormal Lab Results
11/10/23
20:46
Abs Immat Gran (auto) 0.1 H 10^3/uL
(0-0.05)
Absolute Neuts (auto) 7.0 H 10^3/uL
(1.4-6.5)
Absolute Lymphs (auto) 0.8 L 10^3/uL
(1.2-3.4)
Immature Gran % 0.6 H %
(0-0.5)
Neutrophils % 86.2 H %
(42.2-75.2)
Lymphocytes % 10.0 L %
(20.5-51.1)
Glucose 100 H mg/dl
(70-99)
11/10/23 20:46
11/10/23 20:46
Vital Signs
Initial and Last Documented VS:
Initial Vital Signs
Temp Pulse Resp BP Pulse Ox
99.6 F 79 16 160/93 98
11/10/23 15:28 11/10/23 15:28 11/10/23 15:28 11/10/23 15:28 11/10/23 15:28
Last Documented Vital Signs
Temp Pulse Resp BP Pulse Ox
98.2 F 80 18 121/63 95
11/11/23 15:00 11/11/23 15:00 11/11/23 15:00 11/11/23 15:00 11/11/23 15:00
<Demetrius Wilson, DO - Last Filed: 11/10/23 21:39>
Orders/Labs/Results
Orders:
Orders
11/10/23 Dinner
Gluten Free
At Your Request: Full Participation
Gluten Free: Low Lactose
11/10/23 17:03
0.9% Sodium Chloride 1000 ml [Nss] 1,000 ml IV BOLUS
Diphenhydramine [Benadryl] 25 mg IV NOW STA
Ketorolac [Toradol] 15 mg IV NOW STA
Prochlorperazine [Compazine] 5 mg IV NOW STA
11/10/23 17:55
Dexamethasone Sod Phosphate [Decadron] 10 mg IV NOW STA
11/10/23 18:18
HYDROmorphone [Dilaudid] 1 mg IV NOW STA
11/10/23 19:18
HYDROmorphone [Dilaudid] 1 mg IV NOW STA
11/10/23 20:41
HYDROmorphone [Dilaudid] 1 mg IV NOW STA
11/10/23 20:46
Complete Blood Count/With Diff Urgent
Comprehensive Metabolic Panel Urgent
11/10/23 20:47
Electrocardiogram (*1) Urgent
Reason for Study: Chest Pain
EKG- Treatment ONCE
11/10/23 21:05
Valproate Sodium [Depacon] 500 mg 0.9% Sodium Chloride 50 ml [Nss] 50 ml IV NOW
11/10/23 21:38
Consult Neurology [NEUROLOGY CONSULT] Routine
Consulting Provider: Migdalia Kapoor
Was physician already notified: Yes
11/10/23 22:21
Admit/Transfer Patient As Directed
Co-Sign Provider:
Level of Care: Observation services
Assign to:: Medical/Surgical
Physician / Group: steven velazquez
Diagnosis: intractable migraine
Lorazepam [Ativan] 1 mg PO NOW STA
Metoclopramide [Reglan] 10 mg IV NOW STA
Metoclopramide [Reglan] 10 mg IV Q6HPRN PRN
11/10/23 22:22
Code Status As Directed
Resuscitation Status: Full Code
11/10/23 23:00
Flush (0.9% Sodium Chloride) [Flush (Nss)] See Dose Instructions IV PER PROTOCOL
11/10/23 23:50
Acetaminophen [Tylenol] 650 mg PO Q4HPRN PRN
Benzonatate [Tessalon Perles] 200 mg PO TIDPRN PRN
Budesonide/Formoterol 160/4.5 [Symbicort 160/4.5 Mcg Inhaler] 2 puff INH R Q4HPRN PRN
Lorazepam [Ativan] 1 mg PO TIDPRN PRN
Prochlorperazine [Compazine] 10 mg PO Q8H PRN
fluticasone propionate 2 spray NASAL DAILY PRN
11/10/23 23:50
Activity As Directed
Activity Level: As Tolerated
Pneumatic Compression Sleeves As Directed
Type: Knee high
Vital Signs As Directed
Frequency: Per unit guidelines
Ot Eval And Treat Routine
Pt Eval And Treat Routine
Activity Level: As Tolerated
DX Deep Vein Thrombosis Video Routine
11/11/23 05:16
Basic Metabolic Panel IN AM
Complete Blood Count/With Diff IN AM
11/11/23 06:00
EKG [Electrocardiogram (*1)] IN AM
Reason for Study: QTc Monitoring
Levothyroxine [Synthroid] 175 mcg PO DAILY @ 0600
11/11/23 08:00
Budesonide/Formoterol 160/4.5 [Symbicort 160/4.5 Mcg Inhaler] 2 puff INH R TID
Buspirone [Buspar] 15 mg PO TID
Famotidine [Pepcid] 20 mg PO BID
Ferrous Sulfate [Feosol] 325 mg PO DAILY
Lamotrigine [Lamictal] 100 mg PO BID
Magnesium Oxide 500 mg PO TID
Pantoprazole [Protonix] 40 mg PO BID
Risperidone [Risperdal] 1 mg PO BID
Sucralfate [Carafate] 1 gram PO TID
Sulfamethox./Trimethoprim Ds [Bactrim Ds 800 mg/160 mg] 1 tablet PO DAILY
Verapamil [Isoptin] 160 mg PO TID
azelastine 2 spray NASAL BID
budesonide 0.5 mg NASAL BID
11/11/23 22:00
Cetirizine HCl [Zyrtec] 10 mg PO HS
FOLic ACID [Folvite] 1 mg PO HS
Fluoxetine HCl [Prozac] 80 mg PO HS
Melatonin 3 mg PO HS
11/15/23 08:00
Ergocalciferol [Drisdol (Vitamin D2)] 50,000 units PO FR
Abnormal Lab Results
11/10/23
20:46
Abs Immat Gran (auto) 0.1 H 10^3/uL
(0-0.05)
Absolute Neuts (auto) 7.0 H 10^3/uL
(1.4-6.5)
Absolute Lymphs (auto) 0.8 L 10^3/uL
(1.2-3.4)
Immature Gran % 0.6 H %
(0-0.5)
Neutrophils % 86.2 H %
(42.2-75.2)
Lymphocytes % 10.0 L %
(20.5-51.1)
Glucose 100 H mg/dl
(70-99)
11/10/23 20:46
11/10/23 20:46
Vital Signs
Initial and Last Documented VS:
Initial Vital Signs
Temp Pulse Resp BP Pulse Ox
99.6 F 79 16 160/93 98
11/10/23 15:28 11/10/23 15:28 11/10/23 15:28 11/10/23 15:28 11/10/23 15:28
Last Documented Vital Signs
Temp Pulse Resp BP Pulse Ox
98.2 F 80 18 121/63 95
11/11/23 15:00 11/11/23 15:00 11/11/23 15:00 11/11/23 15:00 11/11/23 15:00
<Agueda Camarena PA-C - Last Filed: 11/12/23 11:24>
MDM/Problems Addressed
Differential Diagnosis Includes:
Differentials include migraine headache, cluster headache, tension headache sumatriptan side effect, trigeminal neuralgia
MDM/Problems Addressed:
Headache
Chronic conditions affecting care:
Asthma, migraines, celiac disease, IBS, PCOS, hypothyroidism, anxiety, depression, cluster head
Acute Exacerbation and/or Progression of Chronic Illness:
Cluster headaches, patient states that this pain is characteristic of her cluster headaches
<Agueda Camarena PA-C - Last Filed: 11/12/23 11:24>
*Pulse Oximetry
Patient hypoxic: no
*Critical Care Note
Total Time (30-74mins, 75-104mins- exclusive of procedures): Not Applicable
Data Reviewed
Review of Other/Old Records Reveals: Records (Reviewed discharge summary in 08/05/2023 patient was admitted for intractable, reviewed medications that worked for her)
Source: patient and records
Further Testing Considered But Not Given:
Considered CT scan, however patient states that this pain is characteristic of her typical cluster headaches
<DILLON Dickey Last Filed: 11/12/23 11:24>
Patient Management
Escalation/DeEscalation of care consider admission/obs:
38-year-old female with past medical history of cluster headaches, migraine headaches, IBS, anxiety, optic neuritis presenting emergency department today with a headache.
<Demetrius Wilson DO - Last Filed: 11/10/23 21:39>
Update Note
Update Note:
Given multiple rounds of pain medicine and Dilaudid, patient still complaining of uncontrolled headache. Case discussed with neurology. Will admit and start IV valproic acid
ED Attending Note
<Agueda Camarena PA-C - Last Filed: 11/12/23 11:24>
-
Portions of this chart may have been created with voice recognition software.� Occasional wrong word or��sound alike� substitutions may have occurred due to the inherent limitations of voice recognition software.
<Demetrius Wilson, - Last Filed: 11/10/23 21:39>
ED Attending Note
Patient seen and examined by attending physician: Yes
I performed the substantive portion of visit, reviewed & personally made and approve the management plan that is documented in note by myself or ROSE.: Yes
ED Attending Note:
I have seen and evaluated the patient with a [id number] encounter. I have spoken to the advance practicer provider and involved in the medical history, the physical exam, medical decision making.
Evaluation and management service: agree unless noted differently below.
Results interpretation: agree unless noted differently below.
Focused HPI: 38-year-old female presenting with headache. She has a longstanding history of migraines. She took her sumatriptan hand and noted throat and neck pain. This happened before but never lasted this long
Physical exam: Sitting bed comfortably. No acute distress. Posterior pharynx clear
Medical Decision Making: Patient stating Compazine, Toradol, Benadryl, steroids and Dilaudid. Will refrain from Dilaudid and reassess based on how she feels after the other medicines. Discussed low utility of repeating CT head. She agrees
Discharge Plan
Departure
Patient Disposition: Admit
Date of Disposition: 11/10/23
Time of Disposition: 21:38
Admit to: Med/Surg
Presentation/result/management discussed w/ accepting MD/DO: Hospitalist
Discharge Problem:
Intractable migraine
Interventions
Interventions:
*Risk Screen - Suicide Last Done: 11/10/23 17:21
*General Assessment Last Done: 11/10/23 17:21
*Neglect/Abuse Screening Last Done: 11/10/23 17:21
ED- Fall Risk Assessment Last Done: 11/10/23 23:39
*ED COVID-19 Vaccine History Last Done: 11/10/23 17:21
*Nursing Disposition Last Done: 11/10/23 23:39
ED- Neurological Assessment Last Done: 11/10/23 17:29
Discharge Date and Time
Discharge Date/Time: 11/10/23 23:39
[2023-11-10 17:29] VITALS: BP 145/78
[2023-11-10] MEDS: NSS 1000 IV (17:54)
[2023-11-10] MEDS: BENADRYL 25 MG IV (17:54)
[2023-11-10] MEDS: TORADOL 15 MG IV (17:55)
[2023-11-10] MEDS: COMPAZINE 5 MG IV (17:58)
[2023-11-10] MEDS: DECADRON 10 MG IV (18:05)
[2023-11-10] MEDS: DILAUDID 1 MG IV ×3 (18:25→20:46)
[2023-11-10 20:33] VITALS: BP 149/94
[2023-11-10 21:09] LABS: % Basophils 0.2 % (0-2); % Eosinophils 1.1 % (0-6); % Immature Granulocytes 0.6 % (0-0.5); % Monocytes 1.9 % (1.7-9.3); % Neutrophils 86.2 % (42.2-75.2); Absolute Eosinophils 0.1 10^3/uL (0-0.7); Absolute Immature Granulocytes 0.1 10^3/uL (0-0.05); Absolute Lymphocytes 0.8 10^3/uL (1.2-3.4); Absolute Monocytes 0.2 10^3/uL (0.1-0.6); Hemoglobin 13.3 g/dL (12.0-16.0); Mean Corpuscular Hgb 30.9 pg (27.0-31.0); Mean Corpuscular Volume 88.4 fL (81.0-99.0); Mean Platelet Volume 8.3 fL (7.4-10.4); Nucleated Red Blood Cells % 0 %; Platelet Count 259 10^3/uL (130-400); Red Cell Dist. Width 11.5 % (11.5-14.5); White Blood Cell Count 8.1 10^3/uL (4.8-10.8)
[2023-11-10 21:22] LABS: ALT (SGPT) 14 U/L (0-35); AST (SGOT) 18 U/L (14-36); Alkaline Phosphatase 91 U/L (38-126); Blood Urea Nitrogen 14 mg/dl (7-17); Calcium 9.6 mg/dl (8.4-10.2); Carbon Dioxide 25 mmol/L (22-30); Chloride 104 mmol/L (98-107); Glucose 100 mg/dl (70-99); Potassium 4.4 mmol/L (3.5-5.1); Sodium 136 mmol/L (135-145); Total Bilirubin 0.3 mg/dl (0.2-1.3); Total Protein 6.6 g/dl (6.3-8.2); eGFR > 60.00
[2023-11-10] MEDS: DEPACON 55 MG IV (21:35)
--- NOTE | 2023-11-10 21:53 | HPS.HSE ---
Addendum entered and electronically signed by Dickson Felix DO 11/10/23 23:01:
Patient seen and examined independently. Agree with findings an plan as set forth by LEN Ragland.
Patient is a 38y F with PMH significant for migraine / cluster headaches, CVID and asthma who presents to ED complaining of headache. Patient states that her current headache started today. She has taken her usual abortive therapies including
Nurtec, Imitrex, etc without significant improvement in her symptoms. Patient was last admitted here in July with similar episode. She states that she has since been admitted to [facility] multiple times for headaches.
Patient notes that she developed a sensation of flushing and tongue numbness today after taking her Imitrex. This has never happened before. Those symptoms have gradually improved.
Her headache at the time of my exam is rated an 8/10. She just received a dose of Depakote per Neurology recommendations.
Patient had an apparent reaction to ergot in July; however, she states that this was due to the rate of infusion. She states that she has received that medication multiple times since then (at other institutions) without any adverse effects.
Ass:
Intractable Migraine Headache
PCOS
Combined Variable Immunodeficiency
Hypothyroidism
Asthma
Obesity
IBS / GERD
Anxiety / Depression
Plan:
Observe overnight for further evaluation and treatment.
Continue usual migraine medications including Reglan, Toradol, Benadryl, etc.
Depakote given this evening. May require additional dosing.
Neurology consulted for further recommendations.
Continue other usual home medications.
Follow for any new / worsening symptoms.
Original Note:
Family Physician
-
Family Physician: Henrry Pool
Chief Complaint
-
Headache, left-sided with nausea
History of Present Illness
38-year-old female complaining of headache left sided that started today for which she injected a dose of Imitrex. She reports after the injection she experienced facial pain and burning which she normally has and resolves within a few seconds
however she reports her facial pain persisted. She also reports pain in her jaw to throat and tongue with numbness. She states she took Benadryl at 1230 and at 130 total 50 mg she called her neurologist who recommended evaluation in the ER. She
reports a headache behind her left eye with nausea but no vomiting. She denies any visual changes she does report some photophobia. She states she was given Dilaudid here in the ER which of the headache from a 10 to an 8 although she still has
nausea despite Compazine. She is asking for additional antinausea meds plus her lorazepam she thinks she is anxious. She does have history of cluster headaches, migraine headaches, intractable headaches she has tried oxygen therapy in the past for
her cluster headaches. She denies fever, chills, chest pain, palpitations, shortness breath, cough, abdominal pain, vomiting, diarrhea, urinary symptoms.
PMH migraines, cluster headaches, optic neuritis sciatica, asthma, celiac disease, GERD, IBS, lactose intolerance, PCOS, hypothyroidism, herniated disc L5-S1, iron deficiency anemia, vitamin D deficiency, anxiety, bipolar disorder, depression,
combined variable immunodeficiency
Medical History
Past Medical History
Past Medical History: Reports Other
Additional Past Medical History:
migraines
cluster headache
optic neuritis
hypothyroidism
sciatica
herniated disc L5-S1
asthma
celiac disease
GERD
IBS
lactose intolerance
PCOS
iron deficiency anemia
vitamin D deficiency
anxiety
bipolar disorder
depression
combined variable immunodeficiency
Past Surgical History: Reports Other
Additional Past Surgical History:
Cholecystectomy
Right knee arthroscopy
Tonsillectomy
[place] teeth extraction
Sinus surgeries 19
Social History
Tobacco: Non-smoker
Alcohol: None
Drug: None
Personal: Single
Living: With Family
Employment: Not Employed
Family History
Family History: Other (Mother history of breast CA, HTN, hypothyroidism father healthy)
Allergies / Home Medications
Allergies reflects when Allergies were last updated in [employer].
Home Medications with original date entered in [employer]
Allergy/Medication List:
Allergies
Allergy/AdvReac Type Severity Reaction Status Date / Time
dihydroergotamine Allergy Mild chest pain Verified 08/04/23 09:28
Milk Containing Products Allergy Unknown Unknown Verified 11/10/23 21:57
(Dairy)
aspirin Allergy Unknown Verified 11/10/23 21:57
gluten Allergy stomach Verified 11/10/23 21:57
issues
silver Allergy Unknown Verified 11/10/23 21:57
[From [employer]]
Home Medications
fluoxetine 40 mg capsule (Prozac) 80 mg PO HS Depression 07/30/17
famotidine 20 mg tablet 20 mg PO BID acid reflux 04/10/21
ferrous sulfate 325 mg (65 mg iron) tablet (FeroSul) 325 mg PO DAILY Supplement 04/22/21
lamotrigine 100 mg tablet 100 mg PO BID Neurological Condition 04/22/21
azelastine 137 mcg (0.1 %) nasal spray aerosol 2 spray intranasal BID Allergies 03/05/23
budesonide-formoterol HFA 160 mcg-4.5 mcg/actuation aerosol inhaler (Symbicort) 2 puff inhalation R TID Lung/Breathing Issues 03/05/23
cetirizine 10 mg tablet (Zyrtec) 10 mg PO HS Allergies 03/05/23
loratadine 10 mg tablet 10 mg PO DAILY Allergies 03/05/23
magnesium oxide 400 mg (241.3 mg magnesium) tablet 400 mg PO TID supplement 03/05/23
melatonin 3 mg tablet 3 - 6 mg PO HS Sleep ##0 03/05/23
sucralfate 1 gram tablet (Carafate) 1 g PO TID Gastrointestinal Issue 03/05/23
sulfamethoxazole 800 mg-trimethoprim 160 mg tablet 1 tab PO DAILY Infection 03/05/23
verapamil 80 mg tablet 160 mg PO TID migraine prevention 03/05/23
budesonide-formoterol HFA 160 mcg-4.5 mcg/actuation aerosol inhaler (Symbicort) 2 puff inhalation R Q4HPRN PRN SOB 03/06/23
diphenhydramine HCl 25 mg capsule (Benadryl) 25 mg PO TID PRN headache #60 caps 03/12/23
Saline Nasal Mist 1 dose intranasal BID Congestion 06/04/23
budesonide 0.5 mg intranasal BID 06/04/23
fluticasone propionate 50 mcg/actuation nasal spray,suspension 2 spray intranasal DAILY PRN if nasal rinse unavailable 06/04/23
risperidone 1 mg tablet 1 mg PO BID Mental Health/Anxiety 06/04/23
benzonatate 100 mg capsule 200 mg (2 x 100 mg) PO TIDPRN PRN cough 7 days #21 caps 06/09/23
buspirone 10 mg tablet 15 mg PO TID Mental Health/Anxiety 08/02/23
ergocalciferol (vitamin D2) 1,250 mcg (50,000 unit) capsule 1,250 mcg PO FR Supplement 08/02/23
folic acid 1 mg tablet 1 mg PO HS Supplement 08/02/23
ibuprofen 800 mg tablet 800 mg PO Q8H PRN mild pain 08/02/23
lorazepam 1 mg tablet 1 mg PO TID PRN anxiety 08/02/23
omeprazole 40 mg capsule,delayed release 40 mg PO BID Gastrointestinal Issue 08/02/23
polyethylene glycol 3350 17 gram/dose oral powder (Miralax) 4 g PO DAILY PRN constipation 08/02/23
prochlorperazine maleate 10 mg tablet 10 mg PO Q8H PRN nausea/vomiting/headache 08/02/23
atogepant 60 mg tablet (Qulipta) 60 mg PO DAILY 11/10/23
levothyroxine 150 mcg tablet 175 mcg PO DAILY@0500 11/10/23
Review of Systems
-
History Source: Patient
A 12 point ROS was completed and negative except as noted: Yes
Constitutional: Denies Fever or Chills
EENT: Reports Sore Throat, Mouth Pain (Left-sided jaw pain) and Other (Reported numbness to tongue pain above left orbit); Denies Runny Nose
Respiratory: Denies Cough or Trouble Breathing
Cardiac: Denies Chest Pain, Diaphoresis, Palpitations or Syncope
Abdomen/GI: Denies Abdominal Pain, Nausea, Vomiting, Diarrhea or Constipated
: Denies Dysuria, Frequency, Flank Pain or Incontinence
Musculoskeletal: Denies Joint Pain or Edema
Skin: Denies Itching or Rash
Neurological: Reports Headache; Denies Dizzy or Weakness
Endocrine: Reports No Symptoms
Hematologic/Lymphatic: Reports No Symptoms
Psych: Reports Calm
Physical Exam
Vital Signs
Vital Signs
Temp Pulse Resp BP Pulse Ox
99.6 F 68 20 149/94 99
11/10/23 15:28 11/10/23 17:29 11/10/23 20:33 11/10/23 20:33 11/10/23 20:33
Physical Exam
General: Conversant and Pain; No Fever or Chills
HEENT: NormoCephalic, Anicteric, PERRLA, [place] Conjunctivae, No Ptosis and Neck Nontender
Respiratory: Clear; No Wheezes, Rales or Rhonchi
Cardiac: S1/S2 and Regular Rhythm; No Murmur, Rub, Gallop or Peripheral Edema
Breast: Deferred by me
GI: Soft, Non Tender, Non Distended, Normal Bowel Sounds and No Hepatosplenomegaly
Rectal: Deferred by Provider
Genito-urinary: Deferred by me
Musculoskeletal: No Clubbing, No Cyanosis and No Edema
Skin: Warm and Dry; No Rash, Jaundice or Ulcers
Neuro: AO x 3, No Motor Deficits, Nonfocal/grossly intact, Cranial Nerves Intact and No Sensory Deficits; No Slurred Speech, Facial Droop or Tremors
Psych: Calm
Laboratory Results
-
11/10/23 20:46
11/10/23 20:46
Laboratory Results
Total Bilirubin 0.3 mg/dl (0.2-1.3) 11/10/23 20:46
AST 18 U/L (14-36) 11/10/23 20:46
ALT 14 U/L (0-35) 11/10/23 20:46
Alkaline Phosphatase 91 U/L (38-126) 11/10/23 20:46
Impression/Plan
-
Impression/plan:
Observation MedSurg
#Intractable headache
Hx migraine headaches, cluster headache
Has had 3 cycles of Botox last being 1 month headaches were daily now 2-3 times per week
No relief with Imitrex
-Valproic acid per neurology
-Consult Neuro
-continue Qulipta 60 mg daily
-continue verapamil 160 mg p.o. 3 times daily, Lamictal 100 mg twice daily
-Zofran as needed
-IV Reglan as needed breakthrough nausea
-IV as needed Dilaudid
-Patient given IV valproic acid in ER(states does not want to be on this daily as she gained 200 pounds at age 14 when she was on this for bipolar disorder)
-Monitor QTc
EKG: QTc 414 MS
# Combined variable immunodeficiency
-Patient on daily Bactrim 1 tab Lai
#Asthma-no acute exacerbation
-Continue Symbicort
#Optic neuritis hx
#Hypothyroidism
-Continue levothyroxine 175 mcg daily
#Sciatica hx
#Herniated disc L5-S1 hx
#Celiac disease/ lactose intolerance
-Gluten-free, lactose-free diet
#GERD
#IBS hx
-Continue Pepcid 20 mg twice daily, omeprazole 40 mg twice daily, Carafate 1 g p.o. 3 times daily
#Anxiety
#Bipolar disorder
#Depression
- cont risperidone 1 mg p.o. twice daily, lorazepam 1 mg 3 times daily as needed, Prozac 80 mg at bedtime, BuSpar 15 mg 3 times daily
#PCOS hx
#Iron deficiency anemia
-Continue ferrous sulfate
#Vitamin D deficiency
-Continue vitamin D 2
#Seasonal allergies
Continue Zyrtec 10 mg at bedtime
#Insomnia
-Continue melatonin 3 to 6 mg at bedtime as needed
#Obesity due to excess calorie consumption�BMI 40.3 KG
Weight loss recommended, low-fat diet
DVT prophylaxis
SCDs
Full code
[2023-11-10] MEDS: ATIVAN 1 MG PO (22:41)
[2023-11-10] MEDS: REGLAN 10 MG IV (22:41)
[2023-11-10 22:56] VITALS: BP 141/85
--- NOTE | 2023-11-10 23:45 | PTCARENOTE ---
Pt was received from ED at 2345. Pt ambulated to the unit bed. Complaining of a 8/10 migraine headache. Waiting for PRN meds to be verified. Oriented to the room and the care plan.
[2023-11-10 23:47] VITALS: BP 142/85; BMI 39.8
[2023-11-11] MEDS: TYLENOL 650 MG PO (00:07)
[2023-11-11] MEDS: PROZAC 80 MG PO (00:56)
[2023-11-11] MEDS: FOLVITE 1 MG PO (00:56)
[2023-11-11] MEDS: ZYRTEC 10 MG PO (00:56)
[2023-11-11] MEDS: BUSPAR 15 MG PO ×3 (00:56→15:59)
[2023-11-11] MEDS: LAMICTAL 100 MG PO ×2 (00:56→08:20)
[2023-11-11] MEDS: BENADRYL 12.5 MG IV ×3 (00:56→13:38)
[2023-11-11] MEDS: ISOPTIN 160 MG PO ×3 (00:57→16:00)
[2023-11-11] MEDS: TORADOL 30 MG IV ×2 (00:57→08:21)
[2023-11-11] MEDS: MELATONIN 5 MG PO (02:09)
[2023-11-11] MEDS: SYNTHROID 175 MCG PO (05:36)
[2023-11-11] MEDS: COMPAZINE 10 MG PO ×2 (05:37→16:00)
--- NOTE | 2023-11-11 05:46 | PTCARENOTE ---
Headache slightly improved, now 7/10.
[2023-11-11 05:51] LABS: % Basophils 0.1 % (0-2); % Immature Granulocytes 0.6 % (0-0.5); % Lymphocytes 9.3 % (20.5-51.1); % Monocytes 0.5 % (1.7-9.3); % Neutrophils 89.5 % (42.2-75.2); Absolute Immature Granulocytes 0.1 10^3/uL (0-0.05); Absolute Lymphocytes 0.7 10^3/uL (1.2-3.4); Hematocrit 37.2 % (37.0-47.0); Hemoglobin 12.8 g/dL (12.0-16.0); Mean Corp Hgb Conc. 34.4 g/dL (33.0-37.0); Mean Corpuscular Hgb 30.5 pg (27.0-31.0); Mean Corpuscular Volume 88.6 fL (81.0-99.0); Mean Platelet Volume 8.5 fL (7.4-10.4); Nucleated Red Blood Cells % 0 %; Platelet Count 276 10^3/uL (130-400); Red Cell Dist. Width 11.5 % (11.5-14.5); White Blood Cell Count 7.8 10^3/uL (4.8-10.8)
[2023-11-11 06:13] LABS: Blood Urea Nitrogen 12 mg/dl (7-17); Calcium 9.8 mg/dl (8.4-10.2); Carbon Dioxide 22 mmol/L (22-30); Chloride 102 mmol/L (98-107); Estimated Creatinine Clearance > 125 ml/min; Glucose 133 mg/dl (70-99); Sodium 135 mmol/L (135-145); eGFR > 60.00
[2023-11-11 06:19] LABS: Potassium 4.8 mmol/L (3.5-5.1)
[2023-11-11 07:00] VITALS: BP 132/76
[2023-11-11] MEDS: SYMBICORT 160/4.5 MCG INHALER 2 PUFF INH (08:17)
[2023-11-11] MEDS: BACTRIM DS 800 MG/160 MG 1 TABLET PO (08:19)
[2023-11-11] MEDS: PEPCID 20 MG PO (08:20)
[2023-11-11] MEDS: RISPERDAL 1 MG PO (08:20)
[2023-11-11] MEDS: MAGNESIUM OXIDE 500 MG PO ×2 (08:20→15:59)
[2023-11-11] MEDS: CARAFATE 1 GRAM PO ×2 (08:20→16:00)
[2023-11-11] MEDS: PROTONIX 40 MG PO (08:20)
[2023-11-11] MEDS: FEOSOL 325 MG PO (08:20)
--- NOTE | 2023-11-11 10:08 | PTOTSP ---
ORDERS RECEIVED AND CHART REVIEWED. SPOKE WITH RN AND THEN PATIENT AT BEDSIDE. PATIENT REPORTS INDEPENDENCE WITH MOBILITY DESPITE AN INTRACTABLE HEADACHE WHICH WAS HER REASON FOR ADMISSION. PATIENT REPORTS NO NEED FOR ACUTE CARE SKILLED P.T. WILL
DISCHARGE FROM P.T. SERVICES AT THIS TIME.
--- NOTE | 2023-11-11 10:28 | CON.NEURO4 ---
Addendum entered and electronically signed by Tahir Irving MD 11/11/23 15:12:
Studies reviewed.
I have personally examined the patient. I reviewed and agree with the SOUR [employer]LE[employer]ING PLEATER's Note.
My addenda:
Awake, alert, interactive. No acute distress.
Speech intact. Wearing sunglasses.
Follows 2-step requests w/o difficulty. No tremor.
Extra-ocular movements grossly intact.
Facial movements full and symmetric. Hearing intact to normal conversational volume.
Normal UE movements bilaterally.
Neck: full ROM.
Chest: no dyspnea
Heart: no JVD
Ext: (-) Clubbing, (-) Cyanosis, (-) Edema
IMPRESSIONS/RECOMMENDATIONS:
Recurrent intractable status migrainosus with acute reaction to usual sumatriptan subcutaneous
Patient also has a history of overuse of hospital facilities as remediation of symptoms and has been warned to not present to this hospital routinely
Provide dihydroergotamine as a replacement for routine use of sumatriptan
Continue usual outpatient Atogepant
Continue usual every 3-month dosing of botulinum toxin
Provide prochlorperazine as needed for headache rescue
Continue verapamil as headache prevention
Will continue to follow as outpatient.
Original Note:
Documented by User: Evelina Ambriz NP 11/11/23 11:13
Consultation - Neurology 4
-
CONSULTING PHYSICIAN: Tahir Irving MD
REFERRING PHYSICIAN: ER/Dr. Wilson
DICTATED BY: LEN Sheffield
DATE/TIME OF REQUEST: 11/10/23
DATE/TIME OF CONSULTATION: 11/11/23
Reason for Consultation: intractable migraine
History of Present Illness:
This is a 38-year-old female who has presented to the hospital on 11/10/23 with report of intractable migraine and a reaction to IM sumatriptan. Patient is known to our inpatient Neurology service and is followed by Dr. Kingsley as an outpatient for
migraine.
From previous note by Dr. Kapoor on 08/03/23:
''38-year-old female with past medical history of migraine and cluster headaches who actively follows with Dr. Kingsley in our clinic, CVID, PCOS, bipolar disorder, celiac disease, hypothyroidism, iron deficiency anemia and obesity who presented
yesterday evening for headache. She stated that she woke up yesterday morning early and had a severe migraine with photophobia, slurred speech and loss of vision in her left eye. She took sumatriptan at 7 AM and 11 AM. She took Compazine at 7 AM
and Nurtec at 1 PM. Vision loss and slurred speech are consistent with her prior migraine. She says that all of the characteristics of her current migraine are consistent with her prior migraines. No focal weakness, numbness, palpitations, neck
pain, or fever/stiffness with these events. This morning she reports that her speech has returned to normal. She still having vision issues in the left eye. When I first came into the room she said her headache improved to an 8 out of 10 but
after talking to me it went up to a 9 out of 10. We continued her home meds including verapamil. She has received IV Toradol, Reglan, Benadryl and Decadron. She also received an infusion of magnesium.
She currently gets Botox injections for headache and is on Emgality as an outpatient as well. She was trying to switch to Qulipta from Emgality as the latter had been causing constipation. She reports that Qulipta was approved by her insurance but
the pharmacy has not had this in stock so she has continued Emgality in the meantime. Her last Emgality injection was 2 weeks ago.
She was admitted in mid May with worsening headaches due to COVID. She was discharged home on the following regimen, taken from Dr. Kingsley's note:
'-NSAID like Ibuprofen 400-600 mg TID or Naproxen for about 5 days following discharge.
-Tylenol with 10 mg Compazine TID for 5 days followign DC
-Okay to use Sumatriptan Saturday (limiting to 2 doses a week to prevent medication overuse headache)
-PRN nurtec at home 2 times a week, has a script for this already
-7 days total Prednisone'
She was also seen by Dr. Irving here in February.
At that time she received:
'Single dose of Dihydroergotamine 1 mg IV, Repeat Prochlorperazine 10 mg IV x 1, Repeat Diphendydramine 25 mg IV x 1, Caffeine 95 mg PO x 1, Iron by IV x 1''
Her previous headache workup has included:
-CT Head 03/10/23: No acute intracranial abnormality.
-MRI Brain 11/22/20: No acute intracranial abnormality noted.
-MRI Cervical Spine 11/23/20: No abnormal cord signal or enhancement.
-MRI Thoracic Spine 11/23/20: No abnormal cord signal or enhancement.
-MRI Lumbar Spine 11/24/20: No abnormal cord signal or enhancement.
-Lumbar Puncture 11/25/20: WBC 1, RBC 0, glucose 94.3, protein 68.7, negative for oligoclonal bands.
Patient reports that yesterday (11/10/23) she developed a severe headache and she took her IM sumatriptan for relief as she typically does. She has been taking IM sumatriptan PRN for two years and reports that it usually gives her a momentary head
[place] sensation. After taking it yesterday afternoon, she reports that she developed severe jaw, cheek, neck, and throat pain and her tongue became numb. She called the on-call Neurologist who referred her to the ER for evaluation due to concern for
allergic reaction. In the ER she was given Toradol, Compazine, Benadryl, Decadron, Dilaudid, Reglan, Ativan, and valproic acid. Today (11/11/23), her headache is above her left eye and she rates it a 7/10. She reports photophobia and nausea but
denies phonophobia and vomiting. She has tried other triptans in the past and they were ineffective. During he previous hospitalization in July 2023 she reports the she received DHE as an extremely fast IV push and developed chest discomfort and
pruritus, so it was added to her allergy list. She reports that since then, she has been hospitalized at [facility] for 8 days for headache and received DHE 16 times there with no adverse reaction. Currently, she denies any dizziness, vision changes,
numbness, weakness, chest pain, palpitations, and shortness of breath.
Past Medical History: � Migraine headache with aura, common variable immunodeficiency on IVIG, PCOS, bipolar disorder, celiac disease, hypothyroidism, obesity, iron deficiency anemia
Surgical History: Tonsillectomy, cholecystectomy, right knee surgery
Family History:� Reviewed and noncontributory.
Social History:� Engaged, lives with her family, working currently, no tobacco or alcohol.
Allergies: Dairy, aspirin, gluten, silver, dihydroergotamine, sumatriptan.
Home Medications: See below.
Review of Symptoms:
Patient denies any fever, headache, chest pain, shortness of breath, GI or symptoms.
�Per the HPI.�All systems are reviewed negative except above.
Physical Exam:
The patient is afebrile, abdomen is nondistended, breathing is unlabored, skin is warm and dry, no edema.
Neurologic Examination:
The patient is awake, alert and oriented x 3. She is able to follow commands and answer questions appropriately. There is no aphasia or dysarthria. On cranial nerve assessment, pupils are 3 mm bilateral, round and reactive to light and
accommodation. Visual frias are full. Extraocular movements are intact. Facial sensations are intact and bilaterally symmetrical, there is no facial asymmetry. Hearing is intact bilaterally to normal conversation volume. Tongue palate and uvula are
midline. Sternocleidomastoid strengths are full bilaterally. Motor strengths are 5/5 bilateral upper and lower extremities on medical research [place] scale. There is no drift or involuntary movement noted. Deep tendon reflexes are 2+ bilateral
upper and lower extremities and Babinski is absent bilaterally. There was no extinction noted on double simultaneous stimulation. Coordination is intact by finger to nose bilaterally.
Lab Results: See below.
Neuro Imaging: None.
Differentials for the patient's presentation include:
1. Intractable migraine with aura.
2. Chronic intractable migraine with aura.
Patient has the following risk factors for their symptoms: Chronic intractable migraine with aura, sumatriptan reaction
Recommendations:
-Would stop use of sumatriptan IM but continue remainder of outpatient headache regimen.
-Patient reports she tolerates DHE and would like to try this again because it offers her the most headache relief.
-Provide DHE IV x1 now. Monitor for adverse reaction. Will send outpatient script for intranasal Trudhesa to patient's pharmacy for headache relief, should only use this about twice a week.
-Okay to continue PRN Benadryl and Compazine.
-Follow-up outpatient with Neurology in the next 2 weeks, may see one of the physicians.
Discussed patient care with: Dr. Irving, the patient
Vital Signs and Labs
-
Vital Signs and Labs:
Vital Signs
Temp Pulse Resp BP Pulse Ox
98.1 F 89 16 132/76 99
11/11/23 07:00 11/11/23 08:21 11/11/23 08:21 11/11/23 07:00 11/11/23 08:21
Lab Results
11/11/23 05:16
11/11/23 05:16
Sodium 135 mmol/L (135-145) 11/11/23 05:16
Potassium 4.8 mmol/L (3.5-5.1) 11/11/23 05:16
BUN 12 mg/dl (7-17) 11/11/23 05:16
Glucose 133 mg/dl (70-99) H 11/11/23 05:16
Calcium 9.8 mg/dl (8.4-10.2) 11/11/23 05:16
Medications
-
Active Medications
Generic Name Dose Route Start Last Admin
Trade Name Freq PRN Reason Stop Dose Admin
Acetaminophen 650 mg 11/10/23 23:50 11/11/23 00:07
Acetaminophen 325 Mg Tablet PO 12/08/23 23:49 650 mg
Q4HPRN PRN Administration
mild pain/BUCIO/temp> 100.4F
Benzonatate 200 mg 11/10/23 23:50
Benzonatate 100 Mg Capsule PO 12/08/23 23:49
TIDPRN PRN
cough
Budesonide/Formoterol Fumarate 2 puff 11/11/23 08:00 11/11/23 08:17
Symbicort Inhaler 160/4.5 INH 12/09/23 07:59 2 puff
R BID VENKATA Administration
Buspirone HCl 15 mg 11/11/23 08:00 11/11/23 08:20
Buspirone 10 Mg Tablet PO 12/09/23 07:59 15 mg
TID VENKATA Administration
Cetirizine HCl 10 mg 11/11/23 22:00
Cetirizine Hcl 10 Mg Tablet PO 12/09/23 21:59
HS VENKATA
Diphenhydramine HCl 12.5 mg 11/10/23 23:50 11/11/23 05:38
Diphenhydramine 50 Mg/Ml 1 Ml Vial IV 12/08/23 23:49 12.5 mg
Q4HPRN PRN Administration
Headache, Nausea
Ergocalciferol 50,000 units 11/15/23 08:00
Ergocalciferol (Vitamin D-2) 78473 Units Capsule PO 12/13/23 07:59
FR VENKATA
Famotidine 20 mg 11/11/23 08:00 11/11/23 08:20
Famotidine 20 Mg Tablet PO 12/09/23 07:59 20 mg
BID VENKATA Administration
Ferrous Sulfate 325 mg 11/11/23 08:00 11/11/23 08:20
Ferrous Sulfate 325 Mg Tablet PO 12/09/23 07:59 325 mg
DAILY VENKATA Administration
Fluoxetine HCl 80 mg 11/11/23 22:00
Fluoxetine 20 Mg Capsule PO 12/09/23 21:59
HS VENKATA
Folic Acid 1 mg 11/11/23 22:00
Folic Acid 1 Mg Tablet PO 12/09/23 21:59
HS VENKATA
Ketorolac Tromethamine 30 mg 11/10/23 23:50 11/11/23 08:21
Ketorolac 15 Mg/Ml Injection IV 11/15/23 23:49 30 mg
Q6HPRN PRN Administration
Headache
Lamotrigine 100 mg 11/11/23 08:00 11/11/23 08:20
Lamotrigine 100 Mg Tablet PO 12/09/23 07:59 100 mg
BID VENKATA Administration
Levothyroxine Sodium 175 mcg 11/11/23 06:00 11/11/23 05:36
Levothyroxine 50 Mcg Tablet PO 12/09/23 05:59 175 mcg
DAILY @ 0600 VENKATA Administration
Lorazepam 1 mg 11/10/23 23:50
Lorazepam 1 Mg Tablet PO 12/08/23 23:49
TIDPRN PRN
anxiety
Magnesium Oxide 500 mg 11/11/23 08:00 11/11/23 08:20
Magnesium Oxide 500 Mg Tablet PO 12/09/23 07:59 500 mg
TID VENKATA Administration
Melatonin 3 mg 11/11/23 22:00
Melatonin 3 Mg Tablet PO 12/09/23 21:59
HS VENKATA
Metoclopramide HCl 10 mg 11/10/23 22:21
Metoclopramide 10 Mg/2 Ml Vial IV 12/08/23 22:20
Q6HPRN PRN
breakthru nausea
Pantoprazole Sodium 40 mg 11/11/23 08:00 11/11/23 08:20
Pantoprazole 40 Mg Delayed Release Tablet PO 12/09/23 07:59 40 mg
BID VENKATA Administration
Polyethylene Glycol 17 grams 11/11/23 08:00
Polyethylene Glycol Powder 17 Grams Packet PO 12/09/23 07:59
DAILYPRN PRN
CONSTIPATION
Prochlorperazine Maleate 10 mg 11/11/23 16:00
Prochlorperazine 10 Mg Tablet PO 11/15/23 22:01
TID VEKNATA
Prochlorperazine Maleate 10 mg 11/16/23 08:00
Prochlorperazine 10 Mg Tablet PO 12/14/23 07:59
TIDPRN PRN
NAUSEA, HEADACHE
Risperidone 1 mg 11/11/23 08:00 11/11/23 08:20
Risperidone 1 Mg Tablet PO 12/09/23 07:59 1 mg
BID VENKATA Administration
Sodium Chloride 0 flush 11/10/23 23:00
Sodium Chloride 0.9% (Flush) Syringe IV 12/08/23 22:59
PER PROTOCOL VENKATA
Sucralfate 1 gram 11/11/23 08:00 11/11/23 08:20
Sucralfate 1 Gram Tablet PO 12/09/23 07:59 1 gram
TID VENKATA Administration
Trimethoprim/Sulfamethoxazole 1 tablet 11/11/23 08:00 11/11/23 08:19
Sulfamethoxazole (800 Mg)/Trimethoprim (160 Mg) Tablet PO 1 tablet
DAILY VENKATA Administration
Verapamil HCl 160 mg 11/11/23 08:00 11/11/23 10:10
Verapamil 80 Mg Tablet PO 12/09/23 07:59 160 mg
TID VENKATA Administration
Home Medications
�Medication �Instructions �Recorded
fluoxetine 40 mg capsule (Prozac) 80 mg PO HS Depression 07/30/17
famotidine 20 mg tablet 20 mg PO BID acid reflux 04/10/21
ferrous sulfate 325 mg (65 mg 325 mg PO DAILY Supplement 04/22/21
iron) tablet (FeroSul)
lamotrigine 100 mg tablet 100 mg PO BID Neurological 04/22/21
Condition
azelastine 137 mcg (0.1 %) nasal 2 spray intranasal BID Allergies 03/05/23
spray aerosol
budesonide-formoterol HFA 160 2 puff inhalation R TID 03/05/23
mcg-4.5 mcg/actuation aerosol Lung/Breathing Issues
inhaler (Symbicort)
cetirizine 10 mg tablet (Zyrtec) 10 mg PO HS Allergies 03/05/23
loratadine 10 mg tablet 10 mg PO DAILY Allergies 03/05/23
magnesium oxide 400 mg (241.3 mg 400 mg PO TID supplement 03/05/23
magnesium) tablet
melatonin 3 mg tablet 3 - 6 mg PO HS Sleep ##0 03/05/23
sucralfate 1 gram tablet (Carafate) 1 g PO TID Gastrointestinal Issue 03/05/23
sulfamethoxazole 800 1 tab PO DAILY Infection 03/05/23
mg-trimethoprim 160 mg tablet
verapamil 80 mg tablet 160 mg PO TID migraine prevention 03/05/23
budesonide-formoterol HFA 160 2 puff inhalation R Q4HPRN PRN SOB 03/06/23
mcg-4.5 mcg/actuation aerosol
inhaler (Symbicort)
diphenhydramine HCl 25 mg capsule 25 mg PO TID PRN headache #60 caps 03/12/23
(Benadryl)
Saline Nasal Mist 1 dose intranasal BID Congestion 06/04/23
budesonide 0.5 mg intranasal BID Allergies 06/04/23
fluticasone propionate 50 2 spray intranasal DAILY PRN if 06/04/23
mcg/actuation nasal nasal rinse unavailable
spray,suspension
risperidone 1 mg tablet 1 mg PO BID Mental Health/Anxiety 06/04/23
benzonatate 100 mg capsule 200 mg (2 x 100 mg) PO TIDPRN PRN 06/09/23
cough 7 days #21 caps
buspirone 10 mg tablet 15 mg PO TID Mental Health/Anxiety 08/02/23
ergocalciferol (vitamin D2) 1,250 1,250 mcg PO FR Supplement 08/02/23
mcg (50,000 unit) capsule
folic acid 1 mg tablet 1 mg PO HS Supplement 08/02/23
ibuprofen 800 mg tablet 800 mg PO Q8H PRN mild pain 08/02/23
lorazepam 1 mg tablet 1 mg PO TID PRN anxiety 08/02/23
omeprazole 40 mg capsule,delayed 40 mg PO BID Gastrointestinal Issue 08/02/23
release
polyethylene glycol 3350 17 4 g PO DAILY PRN constipation 08/02/23
gram/dose oral powder (Miralax)
prochlorperazine maleate 10 mg 10 mg PO Q8H PRN 08/02/23
tablet nausea/vomiting/headache
atogepant 60 mg tablet (Qulipta) 60 mg PO DAILY migraine 11/10/23
levothyroxine 150 mcg tablet 175 mcg PO DAILY@0500 Thyroid 11/10/23

Documented by User: Tahir Irving MD 11/11/23 15:08
Consultation - Neurology 4
-
CONSULTING PHYSICIAN: Tahir Irving MD
REFERRING PHYSICIAN: ER/Dr. Wilson
DICTATED BY: LEN Sheffield
DATE/TIME OF REQUEST: 11/10/23
DATE/TIME OF CONSULTATION: 11/11/23
Reason for Consultation: intractable migraine
History of Present Illness:
This is a 38-year-old female who has presented to the hospital on 11/10/23 with report of intractable migraine and a reaction to IM sumatriptan. Patient is known to our inpatient Neurology service and is followed by Dr. Kingsley as an outpatient for
migraine.
From previous note by Dr. Kapoor on 08/03/23:
''38-year-old female with past medical history of migraine and cluster headaches who actively follows with Dr. Kingsley in our clinic, CVID, PCOS, bipolar disorder, celiac disease, hypothyroidism, iron deficiency anemia and obesity who presented
yesterday evening for headache. She stated that she woke up yesterday morning early and had a severe migraine with photophobia, slurred speech and loss of vision in her left eye. She took sumatriptan at 7 AM and 11 AM. She took Compazine at 7 AM
and Nurtec at 1 PM. Vision loss and slurred speech are consistent with her prior migraine. She says that all of the characteristics of her current migraine are consistent with her prior migraines. No focal weakness, numbness, palpitations, neck
pain, or fever/stiffness with these events. This morning she reports that her speech has returned to normal. She still having vision issues in the left eye. When I first came into the room she said her headache improved to an 8 out of 10 but
after talking to me it went up to a 9 out of 10. We continued her home meds including verapamil. She has received IV Toradol, Reglan, Benadryl and Decadron. She also received an infusion of magnesium.
She currently gets Botox injections for headache and is on Emgality as an outpatient as well. She was trying to switch to Qulipta from Emgality as the latter had been causing constipation. She reports that Qulipta was approved by her insurance but
the pharmacy has not had this in stock so she has continued Emgality in the meantime. Her last Emgality injection was 2 weeks ago.
She was admitted in mid May with worsening headaches due to COVID. She was discharged home on the following regimen, taken from Dr. Kingsley's note:
'-NSAID like Ibuprofen 400-600 mg TID or Naproxen for about 5 days following discharge.
-Tylenol with 10 mg Compazine TID for 5 days followign DC
-Okay to use Sumatriptan Saturday (limiting to 2 doses a week to prevent medication overuse headache)
-PRN nurtec at home 2 times a week, has a script for this already
-7 days total Prednisone'
She was also seen by Dr. Irving here in February.
At that time she received:
'Single dose of Dihydroergotamine 1 mg IV, Repeat Prochlorperazine 10 mg IV x 1, Repeat Diphendydramine 25 mg IV x 1, Caffeine 95 mg PO x 1, Iron by IV x 1''
Her previous headache workup has included:
-CT Head 03/10/23: No acute intracranial abnormality.
-MRI Brain 11/22/20: No acute intracranial abnormality noted.
-MRI Cervical Spine 11/23/20: No abnormal cord signal or enhancement.
-MRI Thoracic Spine 11/23/20: No abnormal cord signal or enhancement.
-MRI Lumbar Spine 11/24/20: No abnormal cord signal or enhancement.
-Lumbar Puncture 11/25/20: WBC 1, RBC 0, glucose 94.3, protein 68.7, negative for oligoclonal bands.
Patient reports that yesterday (11/10/23) she developed a severe headache and she took her SQ sumatriptan for relief as she typically does. She has been taking sumatriptan SQ PRN for two years and reports that it usually gives her a momentary head
gu[place] sensation. After taking it yesterday afternoon, she reports that she developed severe jaw, cheek, neck, and throat pain and her tongue became numb. She called the on-call Neurologist who referred her to the ER for evaluation due to concern for
allergic reaction. In the ER she was given Toradol, Compazine, Benadryl, Decadron, Dilaudid, Reglan, Ativan, and valproic acid. Today (11/11/23), her headache is above her left eye and she rates it a 7/10. She reports photophobia and nausea but
denies phonophobia and vomiting. She has tried other triptans in the past and they were ineffective. During he previous hospitalization in July 2023 she reports the she received DHE as an extremely fast IV push and developed chest discomfort and
pruritus, so it was added to her allergy list. She reports that since then, she has been hospitalized at [facility] for 8 days for headache and received DHE 16 times there with no adverse reaction. Currently, she denies any dizziness, vision changes,
numbness, weakness, chest pain, palpitations, and shortness of breath.
Past Medical History: � Migraine headache with aura, common variable immunodeficiency on IVIG, PCOS, bipolar disorder, celiac disease, hypothyroidism, obesity, iron deficiency anemia
Surgical History: Tonsillectomy, cholecystectomy, right knee surgery
Family History:� Reviewed and noncontributory.
Social History:� Engaged, lives with her family, working currently, no tobacco or alcohol.
Allergies: Dairy, aspirin, gluten, silver, dihydroergotamine, sumatriptan.
Home Medications: See below.
Review of Symptoms:
Patient denies any fever, headache, chest pain, shortness of breath, GI or symptoms.
�Per the HPI.�All systems are reviewed negative except above.
Physical Exam:
The patient is afebrile, abdomen is nondistended, breathing is unlabored, skin is warm and dry, no edema.
Neurologic Examination:
The patient is awake, alert and oriented x 3. She is able to follow commands and answer questions appropriately. There is no aphasia or dysarthria. On cranial nerve assessment, pupils are 3 mm bilateral, round and reactive to light and
accommodation. Visual frias are full. Extraocular movements are intact. Facial sensations are intact and bilaterally symmetrical, there is no facial asymmetry. Hearing is intact bilaterally to normal conversation volume. Tongue palate and uvula are
midline. Sternocleidomastoid strengths are full bilaterally. Motor strengths are 5/5 bilateral upper and lower extremities on medical research [place] scale. There is no drift or involuntary movement noted. Deep tendon reflexes are 2+ bilateral
upper and lower extremities and Babinski is absent bilaterally. There was no extinction noted on double simultaneous stimulation. Coordination is intact by finger to nose bilaterally.
Lab Results: See below.
Neuro Imaging: None.
Differentials for the patient's presentation include:
1. Intractable migraine with aura.
2. Chronic intractable migraine with aura.
Patient has the following risk factors for their symptoms: Chronic intractable migraine with aura, sumatriptan reaction
Recommendations:
-Would stop use of sumatriptan IM but continue remainder of outpatient headache regimen.
-Patient reports she tolerates DHE and would like to try this again because it offers her the most headache relief.
-Provide DHE IV x1 now. Monitor for adverse reaction. Will send outpatient script for intranasal Trudhesa to patient's pharmacy for headache relief, should only use this about twice a week.
-Okay to continue PRN Benadryl and Compazine.
-Follow-up outpatient with Neurology in the next 2 weeks, may see one of the physicians.
Discussed patient care with: Dr. Irving, the patient
[2023-11-11] MEDS: DHE-45 1 MG IV (12:02)
[2023-11-11 15:00] VITALS: BP 121/63
--- NOTE | 2023-11-11 15:22 | W.DS.TRANS ---
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
-
Discharge Instructions:
Discharge Diagnosis/Procedures Recurrent migraine
Diet Regular
Instructions:
Stand-Alone Forms:
Changes to Home Medications: No
Discharge Medications:
DC Medications w/original date entered in [facility]
fluoxetine 40 mg capsule (Prozac) 80 mg PO HS Depression 07/30/17
famotidine 20 mg tablet 20 mg PO BID acid reflux 04/10/21
ferrous sulfate 325 mg (65 mg iron) tablet (FeroSul) 325 mg PO DAILY Supplement 04/22/21
lamotrigine 100 mg tablet 100 mg PO BID Neurological Condition 04/22/21
azelastine 137 mcg (0.1 %) nasal spray aerosol 2 spray intranasal BID Allergies 03/05/23
budesonide-formoterol HFA 160 mcg-4.5 mcg/actuation aerosol inhaler (Symbicort) 2 puff inhalation R TID Lung/Breathing Issues 03/05/23
cetirizine 10 mg tablet (Zyrtec) 10 mg PO HS Allergies 03/05/23
loratadine 10 mg tablet 10 mg PO DAILY Allergies 03/05/23
magnesium oxide 400 mg (241.3 mg magnesium) tablet 400 mg PO TID supplement 03/05/23
melatonin 3 mg tablet 3 - 6 mg PO HS Sleep ##0 03/05/23
sucralfate 1 gram tablet (Carafate) 1 g PO TID Gastrointestinal Issue 03/05/23
sulfamethoxazole 800 mg-trimethoprim 160 mg tablet 1 tab PO DAILY Infection 03/05/23
verapamil 80 mg tablet 160 mg PO TID migraine prevention 03/05/23
budesonide-formoterol HFA 160 mcg-4.5 mcg/actuation aerosol inhaler (Symbicort) 2 puff inhalation R Q4HPRN PRN SOB 03/06/23
diphenhydramine HCl 25 mg capsule (Benadryl) 25 mg PO TID PRN headache #60 caps 03/12/23
Saline Nasal Mist 1 dose intranasal BID Congestion 06/04/23
budesonide 0.5 mg intranasal BID Allergies 06/04/23
fluticasone propionate 50 mcg/actuation nasal spray,suspension 2 spray intranasal DAILY PRN if nasal rinse unavailable 06/04/23
risperidone 1 mg tablet 1 mg PO BID Mental Health/Anxiety 06/04/23
benzonatate 100 mg capsule 200 mg (2 x 100 mg) PO TIDPRN PRN cough 7 days #21 caps 06/09/23
buspirone 10 mg tablet 15 mg PO TID Mental Health/Anxiety 08/02/23
ergocalciferol (vitamin D2) 1,250 mcg (50,000 unit) capsule 1,250 mcg PO FR Supplement 08/02/23
folic acid 1 mg tablet 1 mg PO HS Supplement 08/02/23
ibuprofen 800 mg tablet 800 mg PO Q8H PRN mild pain 08/02/23
lorazepam 1 mg tablet 1 mg PO TID PRN anxiety 08/02/23
omeprazole 40 mg capsule,delayed release 40 mg PO BID Gastrointestinal Issue 08/02/23
polyethylene glycol 3350 17 gram/dose oral powder (Miralax) 4 g PO DAILY PRN constipation 08/02/23
prochlorperazine maleate 10 mg tablet 10 mg PO Q8H PRN nausea/vomiting/headache 08/02/23
atogepant 60 mg tablet (Qulipta) 60 mg PO DAILY migraine 11/10/23
levothyroxine 150 mcg tablet 175 mcg PO DAILY@0500 Thyroid 11/10/23
Home Medication Changes
Pending Results: No
--- NOTE | 2023-11-11 15:40 | CM ---
Alert awake oriented patient who lives with her Daniel in a 2 story home with 0 step to enter and 16 steps to bed room . She is independent in driving and all activities of daily living.Offered VN she declined.
No SNF/VN hx
Pharmacy [facility] [place]
PCP Dr Mcnair
PLAN Home no needs
== END 2023-11-11 16:37 | disposition home or self-care (01) ==
LOC: 3 WEST ACU 22:45
PROVIDERS: Clinical Nurse Specialist Family Health; ADMITTING PHYSICIAN Hospitalist; ATTENDING PHYSICIAN Internal Medicine; EMERGENCY PHYSICIAN Student in an Organized Health Care Education/Training Program; FAMILY PHYSICIAN Family Medicine; OTHER PHYSICIAN Psychiatry & Neurology Neurology
DX: G43.911 Migraine, unspecified, intractable, with status migrainosus (principal); K58.9 Irritable bowel syndrome, unspecified; H46.9 Unspecified optic neuritis; R11.0 Nausea; D81.89 Other combined immunodeficiencies; J45.909 Unspecified asthma, uncomplicated; E28.2 Polycystic ovarian syndrome; G89.29 Other chronic pain; K90.0 Celiac disease; F41.9 Anxiety disorder, unspecified; E66.09 Other obesity due to excess calories; E03.9 Hypothyroidism, unspecified; K21.9 Gastro-esophageal reflux disease without esophagitis; F31.9 Bipolar disorder, unspecified; M54.30 Sciatica, unspecified side; M51.27 Other intervertebral disc displacement, lumbosacral region; E73.9 Lactose intolerance, unspecified; D50.9 Iron deficiency anemia, unspecified; E55.9 Vitamin D deficiency, unspecified; G47.00 Insomnia, unspecified; Z87.01 Personal history of pneumonia (recurrent); Z90.49 Acquired absence of other specified parts of digestive tract; Z87.19 Personal history of other diseases of the digestive system; Z82.49 Family history of ischemic heart disease and other diseases of the circulatory system; Z80.3 Family history of malignant neoplasm of breast; Z79.51 Long term (current) use of inhaled steroids; Z68.39 Body mass index [BMI] 39.0-39.9, adult; Z88.6 Allergy status to analgesic agent; Z88.8 Allergy status to other drugs, medicaments and biological substances; Z91.018 Allergy to other foods; Z91.048 Other nonmedicinal substance allergy status; Z79.890 Hormone replacement therapy
CPT/HCPCS: 80048; 80053; 85025; 93005; 94640; 96361; 96365; 96375; 96376; 99285; G0378

== ENCOUNTER 2024-09-08 15:59 | Emergency (ER) | payer OTHER, SELFPAY ==
[2024-09-08 16:06] VITALS: BP 136/78
--- NOTE | 2024-09-08 17:14 | ED.GENMED ---
History of Present Illness
General
Chief Complaint: Fainting/Passed Out
Time Seen by Provider: 09/08/24 17:14
History of Present Illness
History of Present Illness:
TIME OF INITIAL ENCOUNTER:
HPI: The patient has a history of psychogenic nonepileptic form events and struck her head on the kitchen counter yesterday. She was at [facility] but was not seen. She continues to have blurred vision, headaches, and dizziness.
EXAM:
GENERAL: Well appearing in no distress
HEENT: Moist oral mucosa
CARDIOVASCULAR: No murmurs, normal heart rate, regular rhythm, No chest wall tenderness
PULMONARY: No respiratory distress, breath sounds are clear and equal
ABDOMEN: Soft with no peritoneal signs, no tenderness
NEUROLOGIC: Excellent strength all extremities, no coordination deficits
PSYCHIATRIC: Appropriate mental status, normal insight and judgement
EXTREMITIES: Nontender, no edema, moves all extremities equally
SKIN: No rash, no lesions
NUMBER AND COMPLEXITY OF PROBLEMS ADDRESSED AT THE ENCOUNTER
� Chronic conditions affecting care: PNEE, asthma, celiac disease, IBS, PCOS, bipolar, OCD, anxiety/depression
� Acute Exacerbation and/or Progression of Chronic Illness: This is an acute problem
� Differential Diagnosis includes: Concussion, minor head injury, exacerbation of PNEE
AMOUNT AND/OR COMPLEXITY OF DATA TO BE REVIEWED AND ANALYZED
� I performed an independent evaluation of and my interpretation is:
EKG: Sinus 73, normal axis, no acute ST abnormality
CT: CAT scan of the brain shows no acute abnormality
X-rays:
Laboratory Studies:
Other:
� Review of other/old records: The patient was seen here in October 2023 and admitted for intractable migraine
� Clinical information was obtained by an independent historian: I spoke to neal� at bedside
� Prescriptions/Medications Considered but not given:
� Further testing considered but not performed: No clear indication for lab work
RISK OF COMPLICATIONS AND/OR MORBIDITY OR MORTALITY OF PATIENT MANAGEMENT
� Social determinants of health affecting care: Lives at home
� Discussion with other providers:
� Escalation of care including admission/observation vs risk of discharge considered: CT imaging was obtained given the patient's symptoms. Symptoms were consistent with concussion. CT imaging reassuring. She states she is not
working until 3 days from now. I encouraged follow-up with the PMD. She states that she does not do any sports activities.
ANY OTHER UPDATES:
Past History
Past History
ED Past Medical History: Asthma, GERD, Hypothyroidism, Psychiatric (Anxiety, depression, bipolar), Other (Chronic back pain, celiac disease, IBS, PCOS, pneumonia, Cluster headaches, Colitis) and Other (Positive MISTY)
ED Past Surgical History: Cholecystectomy, Orthopedic (Right knee surgery) and Tonsilectomy
Social History
Tobacco: Non-smoker
Alcohol: None
Drug: None
Personal:
Living: with family
Employment: Employed
Family History
Family History: Other (Mother with coronary artery disease and breast cancer)
Phy Exam
Physical Exam
Physical Exam:
See HPI
Course
Orders/Labs/Results
Orders:
Orders
09/08/24 16:05
EKG [Electrocardiogram (*1)] Urgent
Reason for Study: Syncope
09/08/24 16:06
EKG- Treatment ONCE
09/08/24 16:12
CT Head W/o Iv Contrast Urgent
Comment:
Reason For Exam: head strike
Vital Signs
Initial and Last Documented VS:
Initial Vital Signs
Temp Pulse Resp BP Pulse Ox
36.9 C 82 20 136/78 99
09/08/24 16:06 09/08/24 16:06 09/08/24 16:06 09/08/24 16:06 09/08/24 16:06
Last Documented Vital Signs
Temp Pulse Resp BP Pulse Ox
37.3 C 73 18 138/77 100
09/08/24 18:26 09/08/24 18:26 09/08/24 18:26 09/08/24 18:26 09/08/24 18:26
*Critical Care Note
Total Time (30-74mins, 75-104mins- exclusive of procedures): Not Applicable
ED Attending Note
-
Portions of this chart may have been created with voice recognition software.� Occasional wrong word or��sound alike� substitutions may have occurred due to the inherent limitations of voice recognition software.
Discharge Plan
Departure
Patient Disposition: Home (Routine Discharge)
Date of Disposition: 09/08/24
Time of Disposition: 17:26
Patient with high blood pressure during this ER visit?: Yes
Discharge Problem:
Concussion
Instructions: Concussion, Adult ED
Prescriptions:
No Action
fluoxetine [Prozac] 40 MG capsule
80 mg PO HS
famotidine 20 MG tablet
20 mg PO BID
ferrous sulfate [FeroSul] 325 MG tablet
325 mg PO DAILY
lamotrigine 100 MG tablet
100 mg PO BID
cetirizine [Zyrtec] 10 mg Tablet
10 mg PO HS
sulfamethoxazole-trimethoprim 800-160 mg tablet
1 tab PO DAILY
magnesium oxide 400 mg (241.3 mg magnesium) tablet
400 mg PO TID
azelastine 137 mcg (0.1 %) aerosol,spray
2 spray INTRANASAL BID
verapamil 80 mg tablet
160 mg PO TID
loratadine 10 mg tablet
10 mg PO DAILY
budesonide-formoterol [Symbicort] 160-4.5 mcg/actuation HFA aerosol inhaler
2 puff INHALATION R TID
sucralfate [Carafate] 1 gram tablet
1 g PO TID
melatonin 3 mg Tablet
3 - 6 mg PO HS Qty: 0
budesonide-formoterol [Symbicort] 160-4.5 mcg/actuation HFA aerosol inhaler
2 puff INHALATION R Q4HPRN MDD 12 PUFF/24HRS PRN (Reason: SOB)
diphenhydramine HCl [Benadryl] 25 mg capsule
25 mg PO TID PRN (Reason: headache) Qty: 60 0RF
risperidone 1 mg tablet
1 mg PO BID
Saline Nasal Mist
1 dose intranasal BID
Rx Instructions:
USE IN NASAL RINSE WITH BUDESONIDE
budesonide
0.5 mg intranasal BID
Rx Instructions:
Budesonide 0.5mg/2ml; ADD 1 VIAL TO A SALINE RINSE AND USE TWICE A DAY
fluticasone propionate 1 SPRAY spray,suspension
2 spray intranasal DAILY PRN (Reason: if nasal rinse unavailable)
benzonatate 100 mg Capsule
200 mg PO TIDPRN PRN (Reason: cough) 7 Days Qty: 21 0RF
ibuprofen 800 mg tablet
800 mg PO Q8H PRN (Reason: mild pain)
omeprazole 40 mg capsule,delayed release(DR/EC)
40 mg PO BID
buspirone 10 mg tablet
15 mg PO TID
folic acid 1 mg Tablet
1 mg PO HS
ergocalciferol (vitamin D2) 1,250 mcg (50,000 unit) capsule
1,250 mcg PO FR
lorazepam 1 mg tablet
1 mg PO TID PRN (Reason: anxiety)
Patient Comments:
08/02/2023: last filled 02/11/23, 30 tabs for 30 days from [facility]
prochlorperazine maleate 10 mg tablet
10 mg PO Q8H PRN (Reason: nausea/vomiting/headache)
Rx Instructions:
three times a day scheduled for 5 days, then reduce to as needed every 8 hours nausea/headache
polyethylene glycol 3350 [Miralax] 17 gram/dose powder
4 g PO DAILY PRN (Reason: constipation)
levothyroxine 150 mcg tablet
175 mcg PO DAILY@0500
Qulipta 60 mg Tablet
60 mg PO DAILY
Activity Restrictions/Additional Instructions:
CAT scan of your brain shows no acute abnormality. I recommend you follow with your primary care doctor for reassessment. Return here if worse or other concerns. No vigorous sports activities.
Interventions
Interventions:
*Risk Screen - Suicide Last Done: 09/08/24 16:06
*General Assessment Last Done: 09/08/24 16:06
*Neglect/Abuse Screening Last Done: 09/08/24 16:06
*ED- Fall Risk Assessment Last Done: 09/08/24 18:44
*ED COVID-19 Vaccine History Last Done: 09/08/24 18:44
*Nursing Disposition Last Done: 09/08/24 18:44
ED- Cardiac Assessment Last Done: 09/08/24 18:42
ED- Neurological Assessment Last Done: 09/08/24 18:42
Discharge Date and Time
Discharge Date/Time: 09/08/24 18:45
Print Language: CONGOLESE
[2024-09-08 18:26] VITALS: BP 138/77
== END 2024-09-08 18:45 | disposition home or self-care (01) ==
LOC: EMR 15:59
PROVIDERS: EMERGENCY PHYSICIAN Emergency Medicine; FAMILY PHYSICIAN Nurse Practitioner
DX: S06.0XAA Concussion with loss of consciousness status unknown, initial encounter (principal); W22.09XA Striking against other stationary object, initial encounter; R03.0 Elevated blood-pressure reading, without diagnosis of hypertension; J45.909 Unspecified asthma, uncomplicated; K90.0 Celiac disease; K58.9 Irritable bowel syndrome, unspecified; E28.2 Polycystic ovarian syndrome; F31.9 Bipolar disorder, unspecified; F42.9 Obsessive-compulsive disorder, unspecified; F41.9 Anxiety disorder, unspecified; F32.A Depression, unspecified; K21.9 Gastro-esophageal reflux disease without esophagitis; G89.29 Other chronic pain; M54.9 Dorsalgia, unspecified; K52.9 Noninfective gastroenteritis and colitis, unspecified; E03.9 Hypothyroidism, unspecified; Z90.49 Acquired absence of other specified parts of digestive tract; Z87.01 Personal history of pneumonia (recurrent); Z88.6 Allergy status to analgesic agent; Z91.011 Allergy to milk products; Z88.8 Allergy status to other drugs, medicaments and biological substances; Z91.018 Allergy to other foods
CPT/HCPCS: 99284; 70450; 93005

== ENCOUNTER 2024-09-21 21:52 | Emergency (ER) | payer OTHER, SELFPAY ==
[2024-09-21 21:55] VITALS: BP 144/94
[2024-09-21 22:36] LABS: % Basophils 0.4 % (0-2); % Eosinophils 1.1 % (0-6); % Immature Granulocytes 0.5 % (0-0.5); % Lymphocytes 26.9 % (20.5-51.1); % Monocytes 6.4 % (1.7-9.3); % Neutrophils 64.7 % (42.2-75.2); Absolute Eosinophils 0.1 10^3/uL (0-0.7); Absolute Monocytes 0.5 10^3/uL (0.1-0.6); Absolute Neutrophils 4.8 10^3/uL (1.4-6.5); Hematocrit 36.3 % (37.0-47.0); Hemoglobin 12.5 g/dL (12.0-16.0); Mean Corp Hgb Conc. 34.4 g/dL (33.0-37.0); Mean Corpuscular Volume 87.1 fL (81.0-99.0); Mean Platelet Volume 8.3 fL (7.4-10.4); Nucleated Red Blood Cells % 0 %; Platelet Count 215 10^3/uL (130-400); Red Blood Cell Count 4.17 10^6/uL (4.20-5.40); Red Cell Dist. Width 12.4 % (11.5-14.5); White Blood Cell Count 7.5 10^3/uL (4.8-10.8)
[2024-09-21 22:55] LABS: ALT (SGPT) 17 U/L (0-35); AST (SGOT) 19 U/L (14-36); Albumin 3.8 g/dl (3.5-5.0); Alkaline Phosphatase 99 U/L (38-126); Blood Urea Nitrogen 12 mg/dl (7-17); Calcium 9.3 mg/dl (8.4-10.2); Carbon Dioxide 26 mmol/L (22-30); Chloride 100 mmol/L (98-107); Glucose 104 mg/dl (70-99); Potassium 3.7 mmol/L (3.5-5.1); Sodium 133 mmol/L (135-145); Total Bilirubin 0.4 mg/dl (0.2-1.3); Total Protein 6.2 g/dl (6.3-8.2); eGFR > 60.00
[2024-09-21 23:07] LABS: Troponin I < 0.012 ng/ml
[2024-09-22 00:40] VITALS: BP 129/59
[2024-09-22 01:05] VITALS: BMI 42.4
--- NOTE | 2024-09-22 01:17 | ED.GENMED ---
History of Present Illness
General
Chief Complaint: Fainting/Passed Out
Source: patient
Time Seen by Provider: 09/22/24 01:02
History of Present Illness
History of Present Illness:
39-year-old female presents to the emergency room complaining of having a episode of her 'PNEE' which caused her to fall off the toilet and strike her head on the handle. Patient complaining of some headache. She also states she has no vision in
her left eye. This occurs when she has 'cluster headaches'. When her migraine cluster headache is treated her vision returns. Patient denies any nausea or vomiting. She has no focal weakness numbness or tingling in her extremities.
Past History
Past History
ED Past Medical History: Asthma, GERD, Hypothyroidism, Psychiatric (Anxiety, depression, bipolar), Other (Chronic back pain, celiac disease, IBS, PCOS, pneumonia, Cluster headaches, Colitis) and Other (Positive MISTY)
ED Past Surgical History: Cholecystectomy, Orthopedic (Right knee surgery) and Tonsilectomy
Social History
Tobacco: Non-smoker
Alcohol: None
Drug: None
Personal:
Living: with family
Employment: Employed
Family History
Family History: Other (Mother with coronary artery disease and breast cancer)
Phy Exam
Physical Exam
Physical Exam:
General: Awake, Alert, Oriented X3. No acute distress.
Vitals: unremarkable
Head: Atraumatic
Eyes: Pupils equal, EOMI, patient can see 'light' with her left thigh just not any distinct fingers. Right eye vision seems a little blurry. No afferent pupillary defect.
Throat: Airway intact, no exudates
Neck: Trachea midline
Lungs: Clear and equal b/l
Heart: Regular rate, no murmurs
Abd: Soft, Nontender, No pulsatile mass
Neuro: Cranial nerves intact, muscle strength equal bilaterally, cerebellar exam normal
Skin: Warm, dry, no rash
Extremities: pulses equal b/l, no edema
Course
Orders/Labs/Results
Orders:
Orders
09/21/24 21:58
Electrocardiogram (*1) Urgent
Reason for Study: Syncope
09/21/24 21:59
EKG- Treatment ONCE
09/21/24 22:22
Complete Blood Count/With Diff Urgent
Comprehensive Metabolic Panel Urgent
Troponin I Urgent
09/22/24 01:16
Diphenhydramine [Benadryl] 25 mg IV NOW STA
Metoclopramide [Reglan] 10 mg IV NOW STA
Abnormal Lab Results
09/21/24
22:22
RBC 4.17 L 10^6/uL
(4.20-5.40)
Hct 36.3 L %
(37.0-47.0)
Sodium 133 L mmol/L
(135-145)
Glucose 104 H mg/dl
(70-99)
Total Protein 6.2 L g/dl
(6.3-8.2)
09/21/24 22:22
09/21/24 22:22
Vital Signs
Initial and Last Documented VS:
Initial Vital Signs
Temp Pulse Resp BP Pulse Ox
98.2 F 96 20 144/94 97
09/21/24 21:55 09/21/24 21:55 09/21/24 21:55 09/21/24 21:55 09/21/24 21:55
Last Documented Vital Signs
Temp Pulse Resp BP Pulse Ox
98.2 F 85 17 129/59 98
09/21/24 21:55 09/22/24 01:00 09/22/24 01:00 09/22/24 00:40 09/22/24 00:45
ED Attending Note
-
Portions of this chart may have been created with voice recognition software.� Occasional wrong word or��sound alike� substitutions may have occurred due to the inherent limitations of voice recognition software.
Discharge Plan
Departure
Prescriptions:
No Action
fluoxetine [Prozac] 40 MG capsule
80 mg PO HS
famotidine 20 MG tablet
20 mg PO BID
ferrous sulfate [FeroSul] 325 MG tablet
325 mg PO DAILY
lamotrigine 100 MG tablet
100 mg PO BID
cetirizine [Zyrtec] 10 mg Tablet
10 mg PO HS
sulfamethoxazole-trimethoprim 800-160 mg tablet
1 tab PO DAILY
magnesium oxide 400 mg (241.3 mg magnesium) tablet
400 mg PO TID
azelastine 137 mcg (0.1 %) aerosol,spray
2 spray INTRANASAL BID
verapamil 80 mg tablet
160 mg PO TID
loratadine 10 mg tablet
10 mg PO DAILY
budesonide-formoterol [Symbicort] 160-4.5 mcg/actuation HFA aerosol inhaler
2 puff INHALATION R TID
sucralfate [Carafate] 1 gram tablet
1 g PO TID
melatonin 3 mg Tablet
3 - 6 mg PO HS Qty: 0
budesonide-formoterol [Symbicort] 160-4.5 mcg/actuation HFA aerosol inhaler
2 puff INHALATION R Q4HPRN MDD 12 PUFF/24HRS PRN (Reason: SOB)
diphenhydramine HCl [Benadryl] 25 mg capsule
25 mg PO TID PRN (Reason: headache) Qty: 60 0RF
risperidone 1 mg tablet
1 mg PO BID
Saline Nasal Mist
1 dose intranasal BID
Rx Instructions:
USE IN NASAL RINSE WITH BUDESONIDE
budesonide
0.5 mg intranasal BID
Rx Instructions:
Budesonide 0.5mg/2ml; ADD 1 VIAL TO A SALINE RINSE AND USE TWICE A DAY
fluticasone propionate 1 SPRAY spray,suspension
2 spray intranasal DAILY PRN (Reason: if nasal rinse unavailable)
benzonatate 100 mg Capsule
200 mg PO TIDPRN PRN (Reason: cough) 7 Days Qty: 21 0RF
ibuprofen 800 mg tablet
800 mg PO Q8H PRN (Reason: mild pain)
omeprazole 40 mg capsule,delayed release(DR/EC)
40 mg PO BID
buspirone 10 mg tablet
15 mg PO TID
folic acid 1 mg Tablet
1 mg PO HS
ergocalciferol (vitamin D2) 1,250 mcg (50,000 unit) capsule
1,250 mcg PO FR
lorazepam 1 mg tablet
1 mg PO TID PRN (Reason: anxiety)
Patient Comments:
08/02/2023: last filled 02/11/23, 30 tabs for 30 days from [facility]
prochlorperazine maleate 10 mg tablet
10 mg PO Q8H PRN (Reason: nausea/vomiting/headache)
Rx Instructions:
three times a day scheduled for 5 days, then reduce to as needed every 8 hours nausea/headache
polyethylene glycol 3350 [Miralax] 17 gram/dose powder
4 g PO DAILY PRN (Reason: constipation)
levothyroxine 150 mcg tablet
175 mcg PO DAILY@0500
Qulipta 60 mg Tablet
60 mg PO DAILY
Referrals:
Barbara Murcia CRNP [Family Provider] -
Interventions
Interventions:
*Risk Screen - Suicide Last Done: 09/22/24 00:43
*General Assessment Last Done: 09/21/24 21:55
*Neglect/Abuse Screening Last Done: 09/22/24 00:43
*ED COVID-19 Vaccine History Last Done: 09/22/24 00:43
ED- Cardiac Assessment Last Done: 09/22/24 00:47
ED- Neurological Assessment Last Done: 09/22/24 00:47
Discharge Date and Time
Print Language: FAROESE
[2024-09-22] MEDS: REGLAN 10 MG IV (01:28)
[2024-09-22] MEDS: BENADRYL 25 MG IV (01:28)
[2024-09-22 02:00] VITALS: BP 143/77
[2024-09-22 03:00] VITALS: BP 130/68
[2024-09-22] MEDS: TORADOL 30 MG IV (03:12)
[2024-09-22 03:34] VITALS: BP 112/59
[2024-09-22 03:40] VITALS: BP 112/59
== END 2024-09-22 03:40 | disposition home or self-care (01) ==
LOC: EMR 21:52
PROVIDERS: EMERGENCY PHYSICIAN Emergency Medicine; FAMILY PHYSICIAN Nurse Practitioner
DX: R55 Syncope and collapse (principal); R51.9 Headache, unspecified; H54.62 Unqualified visual loss, left eye, normal vision right eye; W18.12XA Fall from or off toilet with subsequent striking against object, initial encounter; J45.909 Unspecified asthma, uncomplicated; E03.9 Hypothyroidism, unspecified; F41.9 Anxiety disorder, unspecified; F32.A Depression, unspecified; F31.9 Bipolar disorder, unspecified; G89.29 Other chronic pain; M54.9 Dorsalgia, unspecified; K58.9 Irritable bowel syndrome, unspecified; E28.2 Polycystic ovarian syndrome; K90.0 Celiac disease; K52.9 Noninfective gastroenteritis and colitis, unspecified; Z90.49 Acquired absence of other specified parts of digestive tract; Z87.01 Personal history of pneumonia (recurrent); Z88.6 Allergy status to analgesic agent; Z91.011 Allergy to milk products; Z88.8 Allergy status to other drugs, medicaments and biological substances; Z91.018 Allergy to other foods
CPT/HCPCS: 99284; 96374; 96375 ×2; 80053; 84484; 85025; 93005

== ENCOUNTER 2024-11-03 23:54 | Emergency (ER) | payer OTHER, SELFPAY ==
[2024-11-03 23:59] VITALS: BP 127/84
[2024-11-04] VITALS (7 sets, daily range): BP systolic 117–141; BP diastolic 69–86; BMI 41.9
[2024-11-04 01:22] LABS: % Basophils 0.3 % (0-2); % Eosinophils 0.2 % (0-6); % Immature Granulocytes 2.1 % (0-0.5); % Lymphocytes 15.4 % (20.5-51.1); % Monocytes 5.3 % (1.7-9.3); % Neutrophils 76.7 % (42.2-75.2); Absolute Immature Granulocytes 0.2 10^3/uL (0-0.05); Absolute Lymphocytes 1.4 10^3/uL (1.2-3.4); Absolute Monocytes 0.5 10^3/uL (0.1-0.6); Absolute Neutrophils 6.9 10^3/uL (1.4-6.5); Hematocrit 33.7 % (37.0-47.0); Hemoglobin 11.3 g/dL (12.0-16.0); Mean Corp Hgb Conc. 33.5 g/dL (33.0-37.0); Mean Corpuscular Hgb 30.5 pg (27.0-31.0); Mean Corpuscular Volume 90.8 fL (81.0-99.0); Mean Platelet Volume 8.4 fL (7.4-10.4); Nucleated Red Blood Cells % 0 %; Platelet Count 212 10^3/uL (130-400); Red Blood Cell Count 3.71 10^6/uL (4.20-5.40); Red Cell Dist. Width 12.9 % (11.5-14.5)
[2024-11-04 01:34] LABS: HCG, Serum Qualitative Screen Negative
[2024-11-04 01:36] LABS: ALT (SGPT) 20 U/L (0-35); AST (SGOT) 16 U/L (14-36); Albumin 3.9 g/dl (3.5-5.0); Alkaline Phosphatase 93 U/L (38-126); Blood Urea Nitrogen 11 mg/dl (7-17); Calcium 8.8 mg/dl (8.4-10.2); Carbon Dioxide 26 mmol/L (22-30); Chloride 104 mmol/L (98-107); Estimated Creatinine Clearance 115 ml/min; Glucose 115 mg/dl (70-99); Sodium 135 mmol/L (135-145); Total Bilirubin 0.3 mg/dl (0.2-1.3); eGFR > 60.00
[2024-11-04 01:47] LABS: Troponin I < 0.012 ng/ml
--- NOTE | 2024-11-04 02:32 | ED.GENMED ---
History of Present Illness
General
Chief Complaint: Musculo-Skeletal Complaint
Source: patient
Exam Limitations: none
Time Seen by Provider: 11/04/24 02:28
Nursing documentation reviewed up to this point in time: agreed with
History of Present Illness
History of Present Illness:
This is a 39 year-old female with a past medical history of Gerd, celiac disease, PCOS, hypothyroidism, bipolar disorder, OCD, anxiety, depression, PNEE, asthma, presents the emergency department today with concerns of upper back and neck pain for
the past week. Patient reports that last week she fell down a flight of around 15 stairs last week and was seen [facility]. She reports that she had a full MRI and CAT scan done of her cervical thoracic and lumbar spine done, which is
normal. Patient reports that she was discharged on oxycodone and another medication reports that her pain has been not getting better. She also tried Tylenol as well, which should not help. Patient states that she does not know what else to do for
pain. She also is concerned because she said you have an aching sensation in her bilateral upper extremities. Patient reports that both of her arms feel heavy. She�s never had anything like this before. She also reports that she has had tremors in
both of her arms that last around five seconds and she reports that these trimmers occur every 10 to 15 minutes. This started en route to the emergency department. She does see a neurologist for PNEE and for cluster her headaches. She currently
denies any new head or neck trauma. She also reports that she had a transient episode of menstrual chest pain that did relieve with carafate. She�s currently chest pain free. She has shortness of breath, difficulty swallowing, facial paresthesias,
facial numbness, difficulty ambulating, urinary or fecal incontinence, genital parenthesis�s.
Past History
Past History
ED Past Medical History: Asthma, GERD, Hypothyroidism, Psychiatric (Anxiety, depression, bipolar), Other (Chronic back pain, celiac disease, IBS, PCOS, pneumonia, Cluster headaches, Colitis) and Other (Positive MISTY)
ED Past Surgical History: Cholecystectomy, Orthopedic (Right knee surgery) and Tonsilectomy
Social History
Tobacco: Non-smoker
Alcohol: None
Drug: None
Personal:
Living: with family
Employment: Employed
Family History
Family History: Other (Mother with coronary artery disease and breast cancer)
Review of Systems
Review of Systems
All Other Systems: ROS reviewed and negative except as documented in HPI and ROS
Phy Exam
Physical Exam
Physical Exam:
General: Patient is well appearing and in no acute distress; non-toxic
Skin: Warm and dry, no rashes or lesions
Head: Normocephalic, atraumatic
Eyes: Sclera non-icteric. EOMs intact.
Neck: No tenderness to palpation of the cervical spine.
Cardiac: Regular rate and rhythm, no murmurs
Peripheral Vascular: No lower extremity swelling or edema
Pulm: Normal respiratory effort, no wheezes, rales, or rhonchi.
Musculoskeletal: Tenderness noted to the right upper trapezius area. No midline thoracic and lumbar tenderness, minimal paraspinal tenderness.
Neuro: CN II-XII intact, no focal neurologic deficits. 5/5 strength in bilateral upper extremeties.
Psychiatric: Appropriate mood and affect.
Course
Orders/Labs/Results
Orders:
Orders
11/04/24 00:04
ECG [Electrocardiogram (*1)] Urgent
Reason for Study: Chest Pain
EKG- Treatment ONCE
Test Result ONCE
11/04/24 01:14
Complete Blood Count/With Diff Urgent
Comprehensive Metabolic Panel Urgent
Creatine Phosphokinase Urgent
Comment: ADD ON
HCG, Serum Qualitative Screen Urgent
Magnesium Urgent
Troponin I Urgent
11/04/24 03:10
Add On- LAB Urgent
Tests Added?: cpk, magnesium
CT Head W/o Iv Contrast Urgent
Comment:
Reason For Exam: bilateral tremors
Cyclobenzaprine HCl [Flexeril] 10 mg PO NOW STA
11/04/24 04:36
Oxycodone/Acetaminophen [Percocet 5/325] 1 tablet PO NOW STA
Abnormal Lab Results
11/04/24
01:14
RBC 3.71 L 10^6/uL
(4.20-5.40)
Hgb 11.3 L g/dL
(12.0-16.0)
Hct 33.7 L %
(37.0-47.0)
Abs Immat Gran (auto) 0.2 H 10^3/uL
(0-0.05)
Absolute Neuts (auto) 6.9 H 10^3/uL
(1.4-6.5)
Immature Gran % 2.1 H %
(0-0.5)
Neutrophils % 76.7 H %
(42.2-75.2)
Lymphocytes % 15.4 L %
(20.5-51.1)
Glucose 115 H mg/dl
(70-99)
Total Protein 6.0 L g/dl
(6.3-8.2)
11/04/24 01:14
11/04/24 01:14
Vital Signs
Initial and Last Documented VS:
Initial Vital Signs
Temp Pulse Resp BP Pulse Ox
98.0 F 76 16 127/84 100
11/03/24 23:59 11/03/24 23:59 11/03/24 23:59 11/03/24 23:59 11/03/24 23:59
Last Documented Vital Signs
Temp Pulse Resp BP Pulse Ox
98.0 F 73 13 129/74 96
11/03/24 23:59 11/04/24 06:00 11/04/24 05:45 11/04/24 06:00 11/04/24 06:00
MDM/Problems Addressed
Differential Diagnosis Includes:
ddx include PNEE, essential tremor, electrolyte derangement, rhabdomyolysis, FND, costochondritis, musculoskeletal sprain/strain
MDM/Problems Addressed:
1)Neck and Back Pain
This is a 39 year-old female with a past medical history of Gerd, celiac disease, PCOS, hypothyroidism, bipolar disorder, OCD, anxiety, depression, PNEE, asthma, presents the emergency department today with concerns of upper back and neck pain for
the past week. Patient reports that last week she fell down a flight of around 15 stairs last week and was seen [facility]. She reports that she had a full MRI and CAT scan done of her cervical thoracic and lumbar spine done, which is
normal. On my physical exam she has some tenderness in right upper traps area but otherwise unremarkable exam normal ROM of cervical spine no midline spinal tenderness. Pt given muscle relaxant and Percocet with minimal relief. Advised pt to follow
up with PCP for continued pain management
2)Bilateral UE Tremors
Started prior to arrival. No history of similar, history as above. CMP unremarkable no evidence of electrolyte derangement. Her CPK is normal. Her CT of the head is normal.Her MSK and neuro exam is normal. Suspect manifestation of her underlying
PNEE vs FND. Advised patient to follow up with her neurologist. Patient also seen by attending physician who agrees with workup and treatment plan. Patient stable for discharge.
Chronic conditions affecting care:
bipolar disorder, anxiety, depression, pcos, htn, hypothroidism, asthma
*Pulse Oximetry
Patient hypoxic: no
*Critical Care Note
Total Time (30-74mins, 75-104mins- exclusive of procedures): Not Applicable
Data Reviewed
Review of Other/Old Records Reveals: Records (reviewed er doc from 09/22/24 pt seen for complex migraine )
Source: patient and records
ED Attending Note
-
Portions of this chart may have been created with voice recognition software.� Occasional wrong word or��sound alike� substitutions may have occurred due to the inherent limitations of voice recognition software.
Discharge Plan
Departure
Patient Disposition: Home (Routine Discharge)
Date of Disposition: 11/04/24
Time of Disposition: 05:55
Patient with high blood pressure during this ER visit?: Yes
Condition: Good
Discharge Problem:
Back pain, Upper extremity pain, History of psychogenic nonepileptic seizure
Instructions: Tremor, Muscle and Bone Pain (DC), BLOOD PRESSURE
Prescriptions:
No Action
fluoxetine [Prozac] 40 MG capsule
80 mg PO HS
famotidine 20 MG tablet
20 mg PO HS
ferrous sulfate [FeroSul] 325 MG tablet
325 mg PO DAILY
lamotrigine 100 MG tablet
100 mg PO BID
cetirizine [Zyrtec] 10 mg Tablet
10 mg PO HS
sulfamethoxazole-trimethoprim 800-160 mg tablet
1 tab PO DAILY
magnesium oxide 400 mg (241.3 mg magnesium) tablet
400 mg PO TID
loratadine 10 mg tablet
10 mg PO DAILY
budesonide-formoterol [Symbicort] 160-4.5 mcg/actuation HFA aerosol inhaler
2 puff INHALATION BID
sucralfate [Carafate] 1 gram tablet
1 g PO TID PRN (Reason: Gastrointestinal Issue)
melatonin 3 mg Tablet
3 - 6 mg PO HS Qty: 0
budesonide-formoterol [Symbicort] 160-4.5 mcg/actuation HFA aerosol inhaler
2 puff INHALATION R Q4HPRN MDD 12 PUFF/24HRS PRN (Reason: SOB)
diphenhydramine HCl [Benadryl] 25 mg capsule
25 mg PO TID PRN (Reason: headache) Qty: 60 0RF
risperidone 1 mg tablet
1 mg PO TID
Saline Nasal Mist
1 dose intranasal BID
Rx Instructions:
USE IN NASAL RINSE WITH BUDESONIDE
fluticasone propionate 1 SPRAY spray,suspension
2 spray intranasal DAILY PRN (Reason: if nasal rinse unavailable)
ibuprofen 800 mg tablet
800 mg PO Q8H PRN (Reason: mild pain)
omeprazole 40 mg capsule,delayed release(DR/EC)
40 mg PO BID
buspirone 10 mg tablet
15 mg PO TID
folic acid 1 mg Tablet
1 mg PO HS
ergocalciferol (vitamin D2) 1,250 mcg (50,000 unit) capsule
1,250 mcg PO FR
lorazepam 1 mg tablet
1 mg PO TID PRN (Reason: anxiety)
Patient Comments:
08/02/2023: last filled 02/11/23, 30 tabs for 30 days from [facility]
Rx Instructions:
TAKES AT 8AM, 12 NOON, 4 PM AND 8 PM
prochlorperazine maleate 10 mg tablet
10 mg PO Q8H PRN (Reason: nausea/vomiting/headache)
Rx Instructions:
as needed every 8 hours nausea/headache
levothyroxine 150 mcg tablet
175 mcg PO DAILY@0500
Qulipta 60 mg Tablet
60 mg PO DAILY
hydroxyzine HCl 25 mg Tablet
25 mg PO .2PM AND 6PM
hydroxyzine HCl 10 mg Tablet
10 mg PO .10 AM AND 8 PM
Referrals:
Barbara Murcia CRNP [Family Provider] -
Activity Restrictions/Additional Instructions:
Your CT scan of the head today was normal.
Please follow-up with your neurologist and your psychiatrist.
Please continue to take your home medication for pain as needed.
Please return the emergency department for any concerns.
Interventions
Interventions:
*Risk Screen - Suicide Last Done: 11/03/24 23:59
*General Assessment Last Done: 11/04/24 00:35
*Neglect/Abuse Screening Last Done: 11/03/24 23:59
*ED- Fall Risk Assessment Last Done: 11/03/24 23:59
*ED COVID-19 Vaccine History Last Done: 11/03/24 23:59
*Nursing Disposition Last Done: 11/04/24 06:10
ED-Musculoskeletal Assessment Last Done: 11/04/24 00:35
Discharge Date and Time
Discharge Date/Time: 11/04/24 06:10
Print Language: AUSTRALIAN
[2024-11-04 03:45] LABS: Creatine Phosphokinase 37 U/L (30-135)
[2024-11-04] MEDS: FLEXERIL 10 MG PO (03:59)
[2024-11-04] MEDS: PERCOCET 5/325 1 TABLET PO (05:01)
== END 2024-11-04 06:10 | disposition home or self-care (01) ==
LOC: EMR 23:54
PROVIDERS: EMERGENCY PHYSICIAN Student in an Organized Health Care Education/Training Program; FAMILY PHYSICIAN Nurse Practitioner
DX: M54.9 Dorsalgia, unspecified (principal); M79.603 Pain in arm, unspecified; R56.9 Unspecified convulsions; K21.9 Gastro-esophageal reflux disease without esophagitis; K90.0 Celiac disease; E28.2 Polycystic ovarian syndrome; E03.9 Hypothyroidism, unspecified; F31.9 Bipolar disorder, unspecified; F42.9 Obsessive-compulsive disorder, unspecified; F41.9 Anxiety disorder, unspecified; I10 Essential (primary) hypertension; J45.909 Unspecified asthma, uncomplicated; K58.9 Irritable bowel syndrome, unspecified; Z80.3 Family history of malignant neoplasm of breast; Z82.49 Family history of ischemic heart disease and other diseases of the circulatory system; Z90.49 Acquired absence of other specified parts of digestive tract
CPT/HCPCS: 99284; 70450; 80053; 82550; 83735; 84484; 84703; 85025; 93005

== ENCOUNTER 2024-12-21 18:22 | Emergency (ER) | payer OTHER, SELFPAY ==
[2024-12-21 18:25] VITALS: BP 135/78
[2024-12-21 18:56] LABS: Hematocrit 35.6 % (37.0-47.0); Hemoglobin 12.3 g/dL (12.0-16.0); Mean Corp Hgb Conc. 34.6 g/dL (33.0-37.0); Mean Corpuscular Volume 89.9 fL (81.0-99.0); Nucleated Red Blood Cells % 0 %; Platelet Count 226 10^3/uL (130-400); Red Cell Dist. Width 12.3 % (11.5-14.5)
[2024-12-21 19:00] LABS: HCG, Serum Qualitative Screen Negative
[2024-12-21 19:11] LABS: ALT (SGPT) 18 U/L (0-35); AST (SGOT) 17 U/L (14-36); Albumin 4.2 g/dl (3.5-5.0); Alkaline Phosphatase 73 U/L (38-126); Blood Urea Nitrogen 10 mg/dl (7-17); Calcium 9.4 mg/dl (8.4-10.2); Carbon Dioxide 22 mmol/L (22-30); Chloride 103 mmol/L (98-107); Glucose 117 mg/dl (70-99); Potassium 3.8 mmol/L (3.5-5.1); Sodium 133 mmol/L (135-145); Total Protein 6.5 g/dl (6.3-8.2); eGFR > 60.00
[2024-12-21 22:07] VITALS: BP 124/64
[2024-12-21 23:00] VITALS: BP 123/66
[2024-12-21] MEDS: REGLAN 10 MG IV (23:18)
[2024-12-21] MEDS: TORADOL 30 MG IV (23:18)
[2024-12-21] MEDS: BENADRYL 25 MG IV (23:19)
[2024-12-21] MEDS: NSS 1000 IV (23:20)
[2024-12-22] VITALS: BP 103/51
[2024-12-22] MEDS: DECADRON 10 MG IV (00:33)
--- NOTE | 2024-12-22 00:37 | ED.GENMED ---
History of Present Illness
General
Chief Complaint: Headache
Source: patient
Exam Limitations: none
Time Seen by Provider: 12/21/24 22:28
Nursing documentation reviewed up to this point in time: agreed with
History of Present Illness
History of Present Illness:
The patient is a 34 year-old female who presents to the emergency department for intractable headache which started on Saturday. She woke up with headache on Saturday AM and has not been relieved by typical at-home migraine management. She describes
pain both on the left frontal area as well as some pain over her right eye, which has been persistent. She does report her typical visual aura, including whiteness in her vision as well as blurry vision. Patient denies any atypical symptoms outside
of her normal migraine pattern, including dizziness, double vision, ataxia, dysarthria, changes in mental status.
She denies any recent trauma.
Patient has tried multiple medication at home without improvement. She did recently follow up with her neurologist at [place] last week.
Past History
Past History
ED Past Medical History: Asthma, GERD, Hypothyroidism, Psychiatric (Anxiety, depression, bipolar), Other (Chronic back pain, celiac disease, IBS, PCOS, pneumonia, Cluster headaches, Colitis) and Other (Positive MISTY)
ED Past Surgical History: Cholecystectomy, Orthopedic (Right knee surgery) and Tonsilectomy
Social History
Tobacco: Non-smoker
Alcohol: None
Drug: None
Personal:
Living: with family
Employment: Employed
Family History
Family History: Other (Mother with coronary artery disease and breast cancer)
Review of Systems
Review of Systems
Allergies reviewed?: Yes
All Other Systems: ROS reviewed and negative except as documented in HPI and ROS
Phy Exam
Physical Exam
Physical Exam:
Vitals: Patient's vital signs are stable. Afebrile
General: Patient is well appearing, no acute distress. Nontoxic appearing.
Skin: Warm and dry, no rashes or lesions
Head: Normocephalic, atraumatic
Eyes: Sclera nonicteric. EOMs intact. Pupils equal round and reactive to light bilaterally. No nystagmus. No tenderness of temporal arteries bilaterally.
Throat: Protecting airway
Neck: Normal ROM, no cervical spine tenderness, no meningismus
Cardiac: Regular rate and rhythm, no murmurs.
Pulm: Normal respiratory effort, no wheezes, rales, rhonchi heard on exam
.
Abdomen: No abdominal tenderness.
Extremities: No evidence of cyanosis or edema
Neuro: AAOx3. CN II-XII grossly intact on examination. Fluid speech. Normal finger-nose. No focal neurologic deficits.
Psychiatric: Normal affect.
Course
Orders/Labs/Results
Orders:
Orders
12/21/24 18:27
Test Result ONCE
12/21/24 18:39
Complete Blood Count/With Diff Urgent
Comprehensive Metabolic Panel Urgent
HCG, Serum Qualitative Screen Urgent
12/21/24 22:54
0.9% Sodium Chloride 1000 ml [Nss] 1,000 ml IV BOLUS
Diphenhydramine [Benadryl] 25 mg IV NOW STA
Ketorolac [Toradol] 30 mg IV NOW STA
Metoclopramide [Reglan] 10 mg IV NOW STA
12/22/24 00:13
Dexamethasone Sod Phosphate [Decadron] 10 mg IV NOW STA
12/22/24 01:00
Acetaminophen 1000MG/100Ml [Ofirmev] 1,000 mg in 100 ml IV ONCE
Acetaminophen IV Indication:: ED Narcotic Naive Pt-ONCE
Lidocaine 2% Mpf [Xylocaine Mpf 2%] 185 mg Pharmacy To Prepare [Call Pharmacy To Prepare] 0 ml IV NOW
12/22/24 01:45
Lidocaine 2% Mpf [Xylocaine Mpf 2%] 185 mg 0.9% Sodium Chloride 100 ml [Nss] 100 ml IV ONCE
Abnormal Lab Results
12/21/24
18:39
RBC 3.96 L 10^6/uL
(4.20-5.40)
Hct 35.6 L %
(37.0-47.0)
MCH 31.1 H pg
(27.0-31.0)
Abs Immat Gran (auto) 0.1 H 10^3/uL
(0-0.05)
Immature Gran % 0.6 H %
(0-0.5)
Sodium 133 L mmol/L
(135-145)
Glucose 117 H mg/dl
(70-99)
12/21/24 18:39
12/21/24 18:39
Vital Signs
Initial and Last Documented VS:
Initial Vital Signs
Temp Pulse Resp BP Pulse Ox
98.8 F 93 16 135/78 98
12/21/24 18:25 12/21/24 18:25 12/21/24 18:25 12/21/24 18:25 12/21/24 18:25
Last Documented Vital Signs
Temp Pulse Resp BP Pulse Ox
98.8 F 73 18 111/51 98
12/21/24 18:25 12/22/24 01:55 12/22/24 01:55 12/22/24 01:55 12/22/24 01:55
MDM/Problems Addressed
Differential Diagnosis Includes:
Not limited to: migraine headache, cluster headache, tension headache, viral illness, acute dehydration, etc
MDM/Problems Addressed:
34-year-old female with intractable migraine for two days. No fevers, neck pain, vomiting, or atypical neurologic symptoms. Symptoms very consistent with patients past history of migraines. Vitals and physical exam as above. Patient well appearing,
in no apparent distress. She has no focal neurologic deficits. She�s moving all extremities and has equal strength.
Prior to my initial evaluation basic labs were sent without any acute abnormalities. Overall � suspect migraine. No atypical findings on physical exam or neurological symptoms concerning for emergent intracranial process - do not feel CT indicated
at this time. Will treat patient with migraine cocktail and reassess.
Update: Patient given fluids, Toradol, Benadryl, reglan, and Decadron with some improvement in headache although it does persist. No new neurologic findings. Will try IV Tylenol and IV lidocaine and reassess. Discussed avoidance of narcotic
medication to treat headache
Update: On reassessment- patients symptoms have essentially resolved. Very mid lingering headache which she feels she can manage at home. Considered admission for intractable migraine however givne symptoms have improved significantly and she
remains well appearing - do not feel hospitalization indicated. Stable for discharge w/ outpatient primary care/neurology follow-up. Advised to stay well hydrated and continue medication as prescribed. Return precautions discussed.
Chronic conditions affecting care:
Migraines
Acute Exacerbation and/or Progression of Chronic Illness:
Acute migraine
*Pulse Oximetry
SaO2: 97
Oxygen Mode of Delivery: Room air
Patient hypoxic: no
*EKG
Interpreted by ED Provider?: NA
*Honey Producer Interpretation
Rate: Honey Producer- N/A
*Critical Care Note
Total Time (30-74mins, 75-104mins- exclusive of procedures): Not Applicable
ED Attending Note
-
Portions of this chart may have been created with voice recognition software.� Occasional wrong word or��sound alike� substitutions may have occurred due to the inherent limitations of voice recognition software.
Discharge Plan
Departure
Patient Disposition: Home (Routine Discharge)
Date of Disposition: 12/22/24
Time of Disposition: 01:51
Patient with high blood pressure during this ER visit?: Yes
Condition: Good
Covid-19: Not Applicable
Discharge Problem:
Migraine
Instructions: Migraines (DC), BLOOD PRESSURE
Prescriptions:
No Action
fluoxetine [Prozac] 40 MG capsule
80 mg PO HS
famotidine 20 MG tablet
20 mg PO HS
ferrous sulfate [FeroSul] 325 MG tablet
325 mg PO DAILY
lamotrigine 100 MG tablet
100 mg PO BID
cetirizine [Zyrtec] 10 mg Tablet
10 mg PO HS
sulfamethoxazole-trimethoprim 800-160 mg tablet
1 tab PO DAILY
magnesium oxide 400 mg (241.3 mg magnesium) tablet
400 mg PO TID
loratadine 10 mg tablet
10 mg PO DAILY
budesonide-formoterol [Symbicort] 160-4.5 mcg/actuation HFA aerosol inhaler
2 puff INHALATION BID
sucralfate [Carafate] 1 gram tablet
1 g PO TID PRN (Reason: Gastrointestinal Issue)
melatonin 3 mg Tablet
3 - 6 mg PO HS Qty: 0
budesonide-formoterol [Symbicort] 160-4.5 mcg/actuation HFA aerosol inhaler
2 puff INHALATION R Q4HPRN MDD 12 PUFF/24HRS PRN (Reason: SOB)
diphenhydramine HCl [Benadryl] 25 mg capsule
25 mg PO TID PRN (Reason: headache) Qty: 60 0RF
risperidone 1 mg tablet
1 mg PO TID
Saline Nasal Mist
1 dose intranasal BID
Rx Instructions:
USE IN NASAL RINSE WITH BUDESONIDE
fluticasone propionate 1 SPRAY spray,suspension
2 spray intranasal DAILY PRN (Reason: if nasal rinse unavailable)
ibuprofen 800 mg tablet
800 mg PO Q8H PRN (Reason: mild pain)
omeprazole 40 mg capsule,delayed release(DR/EC)
40 mg PO BID
buspirone 10 mg tablet
15 mg PO TID
folic acid 1 mg Tablet
1 mg PO HS
ergocalciferol (vitamin D2) 1,250 mcg (50,000 unit) capsule
1,250 mcg PO FR
lorazepam 1 mg tablet
1 mg PO TID PRN (Reason: anxiety)
Patient Comments:
08/02/2023: last filled 02/11/23, 30 tabs for 30 days from [facility]
Rx Instructions:
TAKES AT 8AM, 12 NOON, 4 PM AND 8 PM
prochlorperazine maleate 10 mg tablet
10 mg PO Q8H PRN (Reason: nausea/vomiting/headache)
Rx Instructions:
as needed every 8 hours nausea/headache
levothyroxine 150 mcg tablet
175 mcg PO DAILY@0500
Qulipta 60 mg Tablet
60 mg PO DAILY
hydroxyzine HCl 25 mg Tablet
25 mg PO .2PM AND 6PM
hydroxyzine HCl 10 mg Tablet
10 mg PO .10 AM AND 8 PM
Referrals:
Barbara Murcia CRNP [Family Provider, General] - Follow up in 2-3 days
Activity Restrictions/Additional Instructions:
RETURN TO THE EMERGENCY DEPARTMENT FOR ANY SEVERE HEADACHE, NECK PAIN, HIGH FEVERS, CHANGES IN VISION, CHANGES IN MENTAL STATUS, INTRACTABLE NAUSEA/VOMITING, OTHER NEUROLOGIC SIGNS, OR ANY OTHER CONCERNS
- As discussed�your lab work showed no acute abnormalities in emergency department today.
- Your symptoms improved after IV medication and fluids.
- It is important to stay well-hydrated. Please continue to take your other medications as prescribed.
- Follow-up with neurology and primary care for further evaluation/management to ensure that symptoms are improved
Monitor your symptoms closely and return to the emergency department with any acute worsening/new symptoms or any other concerns
Interventions
Interventions:
*Risk Screen - Suicide Last Done: 12/21/24 18:27
*General Assessment Last Done: 12/21/24 22:02
*Neglect/Abuse Screening Last Done: 12/21/24 18:27
*ED- Fall Risk Assessment Last Done: 12/21/24 22:02
*ED COVID-19 Vaccine History Last Done: 12/21/24 22:02
*Nursing Disposition Last Done: 12/22/24 02:00
ED- Neurological Assessment Last Done: 12/21/24 22:02
Discharge Date and Time
Discharge Date/Time: 12/22/24 02:00
Print Language: AMHARIC
[2024-12-22 01:00] VITALS: BP 123/61
[2024-12-22] MEDS: OFIRMEV 100 IV (01:09)
[2024-12-22] MEDS: XYLOCAINE MPF 2% 109.25 MG IV (01:32)
[2024-12-22 01:52] VITALS: BP 111/51
[2024-12-22 01:55] VITALS: BP 111/51
== END 2024-12-22 02:00 | disposition home or self-care (01) ==
LOC: EMR 18:22
PROVIDERS: Student in an Organized Health Care Education/Training Program; EMERGENCY PHYSICIAN Emergency Medicine; FAMILY PHYSICIAN Nurse Practitioner
DX: G43.909 Migraine, unspecified, not intractable, without status migrainosus (principal); E03.9 Hypothyroidism, unspecified; J45.909 Unspecified asthma, uncomplicated; Z90.49 Acquired absence of other specified parts of digestive tract
CPT/HCPCS: 96374; 96375; 96361; 99284; 80053; 84703; 85025

== ENCOUNTER 2025-01-19 18:59 | Emergency (ER) | payer OTHER, SELFPAY ==
[2025-01-19 19:07] VITALS: BP 124/82
[2025-01-20] MEDS: TORADOL 15 MG IV (00:04)
[2025-01-20] MEDS: DECADRON 6 MG IV (00:05)
[2025-01-20] MEDS: REGLAN 10 MG IV (00:07)
[2025-01-20] MEDS: BENADRYL 25 MG IV (00:07)
[2025-01-20] MEDS: NSS 500 IV (00:10)
[2025-01-20 00:48] LABS: HCG, Serum Qualitative Screen Negative
[2025-01-20 00:50] LABS: Hematocrit 36.2 % (37.0-47.0); Hemoglobin 12.5 g/dL (12.0-16.0); Mean Corp Hgb Conc. 34.5 g/dL (33.0-37.0); Mean Corpuscular Volume 88.7 fL (81.0-99.0); Nucleated Red Blood Cells % 0 %; Platelet Count 226 10^3/uL (130-400); Red Cell Dist. Width 11.8 % (11.5-14.5)
[2025-01-20 00:51] LABS: Blood Urea Nitrogen 10 mg/dl (7-17); Calcium 9.1 mg/dl (8.4-10.2); Carbon Dioxide 22 mmol/L (22-30); Chloride 104 mmol/L (98-107); Glucose 90 mg/dl (70-99); Potassium 4.2 mmol/L (3.5-5.1); Sodium 135 mmol/L (135-145); eGFR > 60.00
--- NOTE | 2025-01-20 01:47 | ED.GENMED ---
History of Present Illness
General
Chief Complaint: Head Injury
Source: patient
Exam Limitations: none
Time Seen by Provider: 01/19/25 23:00
History of Present Illness
History of Present Illness:
39-year-old female passed out woke up on the floor. Now complaining of her typical migraine with decreased vision in her left eye which is not unusual with her migraines. Recurrent syncope has been an ongoing issue. 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
seizures. She has had a thorough cardiac and neurologic workup in the past
Past History
Past History
ED Past Medical History: Asthma, GERD, Hypothyroidism, Psychiatric (Anxiety, depression, bipolar), Other (Chronic back pain, celiac disease, IBS, PCOS, pneumonia, Cluster headaches, Colitis) and Other (Positive MISTY)
ED Past Surgical History: Cholecystectomy, Orthopedic (Right knee surgery) and Tonsilectomy
Social History
Tobacco: Non-smoker
Alcohol: None
Drug: None
Personal:
Living: with family
Employment: Employed
Family History
Family History: Other (Mother with coronary artery disease and breast cancer)
Review of Systems
Review of Systems
All Other Systems: Not applicable
Constitutional: Denies fever or chills
Neurological: Denies dizzy, weakness or numbness
Phy Exam
Physical Exam
Physical Exam:
GENERAL: Alert and oriented in no apparent distress. Normocephalic atraumatic
EYE: Orbits normal.
NECK: Supple, nontender
ENT: Pharynx without erythema
CARDIAC: Regular rate and rhythm without any obvious murmurs.
LUNGS: Clear breath sounds,normal
ABDOMEN: Soft, without focal tenderness or distention
NEUROLOGICAL: Alert and oriented , grossly non-focal. Speech normal. Cranial nerves II through XII intact. Coffee Blender normal
SKIN: Warm and dry, no rash or lesion, no discoloration, skin intact.
MUSCULOSKELETAL: No edema,no deformity.Good color
PSYCH: Normal and appropriate interaction.
Course
Orders/Labs/Results
Orders:
Orders
01/19/25 23:09
Cardiac Monitoring- Treatment ONCE
IV Insert/Care/Rem.- Treatment PRN
Basic Metabolic Panel Urgent
Complete Blood Count/With Diff Urgent
HCG, Serum Qualitative Screen Urgent
0.9% Sodium Chloride 500 ml [Nss] 500 ml IV BOLUS
Dexamethasone Sod Phosphate [Decadron] 6 mg IV NOW STA
Diphenhydramine [Benadryl] 25 mg IV NOW STA
Ketorolac [Toradol] 15 mg IV NOW STA
Metoclopramide [Reglan] 10 mg IV NOW STA
01/19/25 23:10
Electrocardiogram (*1) Stat
Reason for Study: Other
Other Reason for Exam: Headache
CT Head W/o Iv Contrast Urgent
Comment:
Reason For Exam: Headache/blurry vision
EKG- Treatment ONCE
Test Result ONCE
Abnormal Lab Results
01/20/25
00:13
RBC 4.08 L 10^6/uL
(4.20-5.40)
Hct 36.2 L %
(37.0-47.0)
01/20/25 00:13
01/20/25 00:13
Vital Signs
Initial and Last Documented VS:
Initial Vital Signs
Temp Pulse Resp BP Pulse Ox
99.4 F 88 18 124/82 96
01/19/25 19:07 01/19/25 19:07 01/19/25 19:07 01/19/25 19:07 01/19/25 19:07
Last Documented Vital Signs
Temp Pulse Resp BP Pulse Ox
99.4 F 88 18 124/82 96
01/19/25 19:07 01/19/25 19:07 01/19/25 19:07 01/19/25 19:07 01/20/25 01:49
MDM/Problems Addressed
Differential Diagnosis Includes:
No significant trauma. Syncope is a recurring issue that has been thoroughly worked up in the past that is medically stable at this time. Typical migraine where she gets her visual issues. On reevaluation patient feels well asymptomatic and
stable for discharge
*Pulse Oximetry
SaO2: 96
Oxygen Mode of Delivery: Room air
Patient hypoxic: no
*Film Library Clerk Interpretation
Rate: normal
Interpretation: normal
Heart Rate: 80
Rhythm: sinus
*Critical Care Note
Total Time (30-74mins, 75-104mins- exclusive of procedures): Not Applicable
Data Reviewed
Review of Other/Old Records Reveals: Labs, Records and Testing
ED Attending Note
-
Portions of this chart may have been created with voice recognition software.� Occasional wrong word or��sound alike� substitutions may have occurred due to the inherent limitations of voice recognition software.
Discharge Plan
Departure
Patient Disposition: Home (Routine Discharge)
Date of Disposition: 01/20/25
Time of Disposition: 01:53
Patient with high blood pressure during this ER visit?: Yes
Discharge Problem:
Migraine/visual changes, Syncope
Instructions: Migraine in adults, Fainting in adults - ED discharge instructions, BLOOD PRESSURE
Prescriptions:
No Action
fluoxetine [Prozac] 40 MG capsule
80 mg PO HS
famotidine 20 MG tablet
20 mg PO HS
ferrous sulfate [FeroSul] 325 MG tablet
325 mg PO DAILY
lamotrigine 100 MG tablet
100 mg PO BID
cetirizine [Zyrtec] 10 mg Tablet
10 mg PO HS
sulfamethoxazole-trimethoprim 800-160 mg tablet
1 tab PO DAILY
magnesium oxide 400 mg (241.3 mg magnesium) tablet
400 mg PO TID
loratadine 10 mg tablet
10 mg PO DAILY
budesonide-formoterol [Symbicort] 160-4.5 mcg/actuation HFA aerosol inhaler
2 puff INHALATION BID
sucralfate [Carafate] 1 gram tablet
1 g PO TID PRN (Reason: Gastrointestinal Issue)
melatonin 3 mg Tablet
3 - 6 mg PO HS Qty: 0
budesonide-formoterol [Symbicort] 160-4.5 mcg/actuation HFA aerosol inhaler
2 puff INHALATION R Q4HPRN MDD 12 PUFF/24HRS PRN (Reason: SOB)
diphenhydramine HCl [Benadryl] 25 mg capsule
25 mg PO TID PRN (Reason: headache) Qty: 60 0RF
risperidone 1 mg tablet
1 mg PO TID
Saline Nasal Mist
1 dose intranasal BID
Rx Instructions:
USE IN NASAL RINSE WITH BUDESONIDE
fluticasone propionate 1 SPRAY spray,suspension
2 spray intranasal DAILY PRN (Reason: if nasal rinse unavailable)
ibuprofen 800 mg tablet
800 mg PO Q8H PRN (Reason: mild pain)
omeprazole 40 mg capsule,delayed release(DR/EC)
40 mg PO BID
buspirone 10 mg tablet
15 mg PO TID
folic acid 1 mg Tablet
1 mg PO HS
ergocalciferol (vitamin D2) 1,250 mcg (50,000 unit) capsule
1,250 mcg PO FR
lorazepam 1 mg tablet
1 mg PO TID PRN (Reason: anxiety)
Patient Comments:
08/02/2023: last filled 02/11/23, 30 tabs for 30 days from [facility]
Rx Instructions:
TAKES AT 8AM, 12 NOON, 4 PM AND 8 PM
prochlorperazine maleate 10 mg tablet
10 mg PO Q8H PRN (Reason: nausea/vomiting/headache)
Rx Instructions:
as needed every 8 hours nausea/headache
levothyroxine 150 mcg tablet
175 mcg PO DAILY@0500
Qulipta 60 mg Tablet
60 mg PO DAILY
hydroxyzine HCl 25 mg Tablet
25 mg PO .2PM AND 6PM
hydroxyzine HCl 10 mg Tablet
10 mg PO .10 AM AND 8 PM
Referrals:
Barbara Murcia CRNP [Family Provider, General] - Follow up in 2-3 days
Interventions
Interventions:
*Risk Screen - Suicide Last Done: 01/19/25 19:07
*General Assessment Last Done: 01/19/25 19:07
*Neglect/Abuse Screening Last Done: 01/19/25 19:07
*ED- Fall Risk Assessment Last Done: 01/19/25 22:23
ED- Neurological Assessment Last Done: 01/19/25 22:23
ED-Skin Assessment Last Done: 01/20/25 01:07
Discharge Date and Time
Print Language: JAPANESE
== END 2025-01-20 02:13 | disposition home or self-care (01) ==
LOC: EMR 18:59
PROVIDERS: EMERGENCY PHYSICIAN Emergency Medicine; FAMILY PHYSICIAN Nurse Practitioner
DX: G43.909 Migraine, unspecified, not intractable, without status migrainosus (principal); R55 Syncope and collapse; E03.9 Hypothyroidism, unspecified; J45.909 Unspecified asthma, uncomplicated
CPT/HCPCS: 96374; 96375; 96361; 99284; 70450; 80048; 84703; 85025

== ENCOUNTER 2025-01-30 07:20 | Emergency (ER) | payer OTHER, SELFPAY ==
[2025-01-30 07:22] VITALS: BP 122/89
--- NOTE | 2025-01-30 07:51 | ED.GENMED ---
History of Present Illness
General
Chief Complaint: Fainting/Passed Out
Source: patient
Exam Limitations: none
Time Seen by Provider: 01/30/25 07:27
Nursing documentation reviewed up to this point in time: agreed with
History of Present Illness
History of Present Illness:
see MDM
Past History
Past History
ED Past Medical History: Asthma, GERD, Hypothyroidism, Psychiatric (Anxiety, depression, bipolar), Other (Chronic back pain, celiac disease, IBS, PCOS, pneumonia, Cluster headaches, Colitis) and Other (Positive MISTY)
ED Past Surgical History: Cholecystectomy, Orthopedic (Right knee surgery) and Tonsilectomy
Social History
Tobacco: Non-smoker
Alcohol: None
Drug: None
Personal:
Living: with family
Employment: Employed
Family History
Family History: Other (Mother with coronary artery disease and breast cancer)
Review of Systems
Review of Systems
Allergies reviewed?: Yes
All Other Systems: Not applicable
Phy Exam
Physical Exam
Physical Exam:
GENERAL: Alert , in no apparent distress
HEAD: NCAT
EYE: pupils equal and reactive, no nystagmus, no photophobia
reports vision dec in L eye entirely; 'can only see white'
NECK: Supple,full rom, nontender
ENT: o/p clr, mmm.
CARDIAC: Regular rate and rhythm . no edema
LUNGS: Clear breath sounds bilaterally, no acute respiratory distress, no wheezes/rales/rhonchi
ABDOMEN: Soft, without focal tenderness, no r/g, no cvat
NEUROLOGICAL: Alert and orientedx 4, cn intact, no facial asymmetry, 5/5 strength in UE/LE, sensation intact, romberg neg, ambulates without assistance, neg pronator drift
SKIN: Warm and dry, skin intact.
MUSCULOSKELETAL: No edema, well perfused.
PSYCH: Normal and appropriate interaction.
Course
Orders/Labs/Results
Orders:
Orders
01/30/25 07:26
ECG [Electrocardiogram (*1)] Urgent
Reason for Study: Syncope
EKG- Treatment ONCE
01/30/25 07:42
0.9% Sodium Chloride 1000 ml [Nss] 1,000 ml IV BOLUS
Dexamethasone Sod Phosphate [Decadron] 6 mg IV NOW STA
Diphenhydramine [Benadryl] 25 mg IV NOW STA
Ketorolac [Toradol] 15 mg IV NOW STA
Metoclopramide [Reglan] 10 mg IV NOW STA
01/30/25 07:44
Test Result ONCE
01/30/25 08:06
HCG, Serum Qualitative Screen Urgent
Vital Signs
Initial and Last Documented VS:
Initial Vital Signs
Temp Pulse Resp BP Pulse Ox
36.8 C 96 18 122/89 97
01/30/25 07:22 01/30/25 07:22 01/30/25 07:22 01/30/25 07:22 01/30/25 07:22
Last Documented Vital Signs
Temp Pulse Resp BP Pulse Ox
36.8 C 96 18 122/89 97
01/30/25 07:22 01/30/25 07:22 01/30/25 07:22 01/30/25 07:22 01/30/25 07:53
MDM/Problems Addressed
Differential Diagnosis Includes:
see MDM
MDM/Problems Addressed:
Note:
CHIEF COMPLAINT(S)
Frequent passing out episodes associated with headaches and transient vision loss in the left eye.
HISTORY OF PRESENT ILLNESS
The patient is a female with a history of frequent psychogenic non-epileptic episodes (PNE), ocular migraines, presenting after passing out last night, resulting in a headache and left eye vision loss. The patient experiences daily episodes of PNE,
causing syncope at least once a day, with the most recent incident occurring around 4:00 PM yesterday while walking to the bathroom at home. She reports the headache began immediately after regaining consciousness on the ground, describing it as a
migraine that was 4/10 and nowwith a current severity of 9 out of 10, localized to one side of the head.
The patient reports previous episodes where, after fainting, she experiences temporary vision loss in the left eye described as 'seeing white and light.' Similar occurrences have happened frequently, approximately 19 times. Her neurologist is
investigating further causes. She routinely receives treatment for her headaches with medications including diphenhydramine, prochlorperazine, and steroids in what she refers to as a 'migraine cocktail.'
Yesterdays incident did not involve wearing a protective helmet, which she typically uses but was not able to wear at the time. When asked, the patient declined a computed tomography scan, preferring to observe if her symptoms resolve after
receiving her usual medication regimen.
SOCIAL DETERMINANTS AFFECTING HEALTH
The patient experiences considerable stress due to regular fainting episodes and the resulting health complications, affecting her overall quality of life and day-to-day activities.
REVIEW OF SYSTEMS
- Neurological: Reports daily episodes of fainting, recurrent migraines, and transient vision loss in the left eye.
- Ophthalmological: Persistent vision loss in the left eye following fainting episodes, described as viewing white light only.
- Gastrointestinal: Nausea associated with headaches, denies vomiting.
PHYSICAL EXAM
see above
Nursing notes reviewed and vital signs reviewed.
- Neurological: Facial sensation intact. Visual tracking and eye movements examined. The patients inability to discern the number of fingers due to left eye vision loss.
- Ophthalmological: The left eye vision is limited to seeing white light; unable to distinguish objects or fingers.
PROBLEM LIST
Acute:
- Frequent PNE episodes causing fainting.
- Migraine headaches with transient vision loss.
Chronic:
- Vision disturbances secondary to fainting episodes.
PLAN
- Administer routine migraine medications including diphenhydramine, prochlorperazine, and steroids as per the patients typical regimen.
- A computed tomography scan of the head was discussed but declined by the patient to observe effects of medications first.
DIFFERENTIAL DIAGNOSIS
The Differential Diagnosis includes, in no particular order and is not limited to:
1. Psychogenic Non-Epileptic Seizures
2. Migraine with Aura
3. Syncope
4. Transient Ischemic Attack
5. Vestibular Disorders
6. Retinal Migraine
7. Conversion Disorder
8. Intracranial Lesions
9. Post-traumatic Vision Loss
10. Vestibular Migraine
*Pulse Oximetry
SaO2: 97
Oxygen Mode of Delivery: Room air
ED Attending Note
-
Portions of this chart may have been created with voice recognition software.� Occasional wrong word or��sound alike� substitutions may have occurred due to the inherent limitations of voice recognition software.
Discharge Plan
Departure
Discharge Problem:
Headache, Neurogenic syncope
Instructions: Syncope (Fainting) (DC), Headache in adults - ED discharge instructions
Prescriptions:
No Action
fluoxetine [Prozac] 40 MG capsule
80 mg PO HS
famotidine 20 MG tablet
20 mg PO HS
ferrous sulfate [FeroSul] 325 MG tablet
325 mg PO DAILY
lamotrigine 100 MG tablet
100 mg PO BID
cetirizine [Zyrtec] 10 mg Tablet
10 mg PO HS
sulfamethoxazole-trimethoprim 800-160 mg tablet
1 tab PO DAILY
magnesium oxide 400 mg (241.3 mg magnesium) tablet
400 mg PO TID
loratadine 10 mg tablet
10 mg PO DAILY
budesonide-formoterol [Symbicort] 160-4.5 mcg/actuation HFA aerosol inhaler
2 puff INHALATION BID
sucralfate [Carafate] 1 gram tablet
1 g PO TID PRN (Reason: Gastrointestinal Issue)
melatonin 3 mg Tablet
3 - 6 mg PO HS Qty: 0
budesonide-formoterol [Symbicort] 160-4.5 mcg/actuation HFA aerosol inhaler
2 puff INHALATION R Q4HPRN MDD 12 PUFF/24HRS PRN (Reason: SOB)
diphenhydramine HCl [Benadryl] 25 mg capsule
25 mg PO TID PRN (Reason: headache) Qty: 60 0RF
risperidone 1 mg tablet
1 mg PO TID
Saline Nasal Mist
1 dose intranasal BID
Rx Instructions:
USE IN NASAL RINSE WITH BUDESONIDE
fluticasone propionate 1 SPRAY spray,suspension
2 spray intranasal DAILY PRN (Reason: if nasal rinse unavailable)
ibuprofen 800 mg tablet
800 mg PO Q8H PRN (Reason: mild pain)
omeprazole 40 mg capsule,delayed release(DR/EC)
40 mg PO BID
buspirone 10 mg tablet
15 mg PO TID
folic acid 1 mg Tablet
1 mg PO HS
ergocalciferol (vitamin D2) 1,250 mcg (50,000 unit) capsule
1,250 mcg PO FR
lorazepam 1 mg tablet
1 mg PO TID PRN (Reason: anxiety)
Patient Comments:
08/02/2023: last filled 02/11/23, 30 tabs for 30 days from [facility]
Rx Instructions:
TAKES AT 8AM, 12 NOON, 4 PM AND 8 PM
prochlorperazine maleate 10 mg tablet
10 mg PO Q8H PRN (Reason: nausea/vomiting/headache)
Rx Instructions:
as needed every 8 hours nausea/headache
levothyroxine 150 mcg tablet
175 mcg PO DAILY@0500
Qulipta 60 mg Tablet
60 mg PO DAILY
hydroxyzine HCl 25 mg Tablet
25 mg PO .2PM AND 6PM
hydroxyzine HCl 10 mg Tablet
10 mg PO .10 AM AND 8 PM
Interventions
Interventions:
*Risk Screen - Suicide Last Done: 01/30/25 07:22
*General Assessment Last Done: 01/30/25 07:22
Discharge Date and Time
Print Language: NIGERIEN
[2025-01-30 07:58] VITALS: BMI 42.6
[2025-01-30] MEDS: BENADRYL 25 MG IV (08:02)
[2025-01-30] MEDS: DECADRON 6 MG IV (08:02)
[2025-01-30] MEDS: REGLAN 10 MG IV (08:03)
[2025-01-30] MEDS: TORADOL 15 MG IV (08:04)
[2025-01-30] MEDS: NSS 1000 IV (08:05)
[2025-01-30 09:35] VITALS: BP 121/69
== END 2025-01-30 10:04 | disposition home or self-care (01) ==
LOC: EMR 07:20
PROVIDERS: EMERGENCY PHYSICIAN Student in an Organized Health Care Education/Training Program; FAMILY PHYSICIAN Nurse Practitioner
DX: R51.9 Headache, unspecified (principal); R55 Syncope and collapse; E03.9 Hypothyroidism, unspecified; J45.909 Unspecified asthma, uncomplicated; Z90.49 Acquired absence of other specified parts of digestive tract
CPT/HCPCS: 96374; 96375; 96361; 99284; 93005

== ENCOUNTER 2025-02-08 02:35 | Observation (INO) | payer OTHER, SELFPAY ==
[2025-02-07] VITALS (9 sets, daily range): BP systolic 106–141; BP diastolic 48–89; PULSE 64–81; BMI 41.7
[2025-02-07 16:57] LABS: Hematocrit 37.9 % (37.0-47.0); Hemoglobin 13.2 g/dL (12.0-16.0); Mean Corp Hgb Conc. 34.8 g/dL (33.0-37.0); Mean Corpuscular Volume 86.9 fL (81.0-99.0); Nucleated Red Blood Cells % 0 %; Platelet Count 231 10^3/uL (130-400); Red Cell Dist. Width 11.5 % (11.5-14.5)
[2025-02-07 17:20] LABS: ALT (SGPT) 17 U/L (0-35); AST (SGOT) 23 U/L (14-36); Albumin 4.3 g/dl (3.5-5.0); Alkaline Phosphatase 68 U/L (38-126); Blood Urea Nitrogen 12 mg/dl (7-17); Calcium 9.5 mg/dl (8.4-10.2); Carbon Dioxide 17 mmol/L (22-30); Chloride 108 mmol/L (98-107); Glucose 122 mg/dl (70-99); Potassium 4.8 mmol/L (3.5-5.1); Sodium 135 mmol/L (135-145); Total Protein 6.9 g/dl (6.3-8.2); eGFR > 60.00
[2025-02-07] MEDS: TYLENOL 650 MG PO (20:18)
[2025-02-07] MEDS: NSS 1000 IV (20:28)
[2025-02-07] MEDS: MOTRIN 600 MG PO (22:53)
[2025-02-08] VITALS (11 sets, daily range): BP systolic 110–147; BP diastolic 56–86; BMI 40.9
--- NOTE | 2025-02-08 00:17 | HPS.HSE ---
Family Physician
-
Family Physician: LEN Mcghee
Chief Complaint
-
Syncopal episode
History of Present Illness
Patient is a 39-year-old female with past medical history significant for migraine headache with aura, bipolar, hypothyroid, asthma, GERD, CVID, coming into the emergency department with syncopal episodes.
Patient reported that she has been having longer syncopal episodes compared to prior. She states she was diagnosed last year with psychogenic nonepileptic seizure disorder. This was in the setting of recurrent episodes of syncope. She states that
syncope usually last several minutes up to 10 to 15 minutes and occurs multiple times a week. She had extensive evaluation with ambulatory EEG monitoring, ambulatory cardiac monitoring and she is status post loop recorder. All of this monitoring
yielded no pathological findings. She is now being on clonazepam and hydroxyzine for her symptoms. She reports that she regularly wears a helmet at home due to frequent falls from syncopal episodes.
Patient reportedly had a passing out episode for about 30 minutes to the yesterday and then again today. She now complains of headache as well as vertigo. She denies palpitations lightheadedness. She denies any nausea or vomiting. She has not
had any fevers or chills. She denies any urinary symptoms.
She had a witnessed syncopal episode while in the emergency department walking into the bathroom. She fell over to left side and was supported by nausea that we will grab the immediately. She was placed on the bed and given a sternal rub. She
woke up immediately with an episode that lasted for about 1 minute. There was no observed tonic-clonic activity. There was no incontinence of the bladder or bowel. There was no postictal depression.
Vital signs were stable with a blood pressure of 106/53 and a pulse rate of 63 satting 99% on room air. CBC was unremarkable electrolytes BUN and creatinine were normal. ECG shows a normal sinus rhythm at a rate of 87. CT of the head shows no
acute intracranial process.
Medical History
Past Medical History
Past Medical History: Reports Other
Additional Past Medical History:
migraines
cluster headache
optic neuritis
hypothyroidism
sciatica
herniated disc L5-S1
asthma
celiac disease
GERD
IBS
lactose intolerance
PCOS
iron deficiency anemia
vitamin D deficiency
anxiety
bipolar disorder
depression
combined variable immunodeficiency
Past Surgical History: Reports Other
Additional Past Surgical History:
Cholecystectomy
Right knee arthroscopy
Tonsillectomy
[place] teeth extraction
Sinus surgeries 21
Social History
Tobacco: Non-smoker
Alcohol: None
Drug: None
Personal: Single
Living: With Family
Employment: Not Employed
Family History
Family History: Other (Mother history of breast CA, HTN, hypothyroidism father healthy)
Allergies / Home Medications
Allergies reflects when Allergies were last updated in [facility].
Home Medications with original date entered in [facility]
Allergy/Medication List:
Allergies
Allergy/AdvReac Type Severity Reaction Status Date / Time
dihydroergotamine Allergy Mild chest pain Verified 08/04/23 09:28
Milk Containing Products Allergy Unknown Unknown Verified 11/10/23 21:57
(Dairy)
aspirin Allergy Unknown Verified 11/10/23 21:57
gluten Allergy stomach Verified 11/10/23 21:57
issues
silver Allergy Unknown Verified 11/10/23 21:57
[From Tegaderm AG Mesh]
Home Medications
fluoxetine 40 mg capsule (Prozac) 80 mg PO HS Depression 07/30/17
famotidine 20 mg tablet 20 mg PO BID acid reflux 04/10/21
ferrous sulfate 325 mg (65 mg iron) tablet (FeroSul) 325 mg PO DAILY Supplement 04/22/21
lamotrigine 100 mg tablet 100 mg PO BID Neurological Condition 04/22/21
azelastine 137 mcg (0.1 %) nasal spray aerosol 2 spray intranasal BID Allergies 03/05/23
budesonide-formoterol HFA 160 mcg-4.5 mcg/actuation aerosol inhaler (Symbicort) 2 puff inhalation R TID Lung/Breathing Issues 03/05/23
cetirizine 10 mg tablet (Zyrtec) 10 mg PO HS Allergies 03/05/23
loratadine 10 mg tablet 10 mg PO DAILY Allergies 03/05/23
magnesium oxide 400 mg (241.3 mg magnesium) tablet 400 mg PO TID supplement 03/05/23
melatonin 3 mg tablet 3 - 6 mg PO HS Sleep ##0 03/05/23
sucralfate 1 gram tablet (Carafate) 1 g PO TID Gastrointestinal Issue 03/05/23
sulfamethoxazole 800 mg-trimethoprim 160 mg tablet 1 tab PO DAILY Infection 03/05/23
verapamil 80 mg tablet 160 mg PO TID migraine prevention 03/05/23
budesonide-formoterol HFA 160 mcg-4.5 mcg/actuation aerosol inhaler (Symbicort) 2 puff inhalation R Q4HPRN PRN SOB 03/06/23
diphenhydramine HCl 25 mg capsule (Benadryl) 25 mg PO TID PRN headache #60 caps 03/12/23
Saline Nasal Mist 1 dose intranasal BID Congestion 06/04/23
budesonide 0.5 mg intranasal BID 06/04/23
fluticasone propionate 50 mcg/actuation nasal spray,suspension 2 spray intranasal DAILY PRN if nasal rinse unavailable 06/04/23
risperidone 1 mg tablet 1 mg PO BID Mental Health/Anxiety 06/04/23
benzonatate 100 mg capsule 200 mg (2 x 100 mg) PO TIDPRN PRN cough 7 days #21 caps 06/09/23
buspirone 10 mg tablet 15 mg PO TID Mental Health/Anxiety 08/02/23
ergocalciferol (vitamin D2) 1,250 mcg (50,000 unit) capsule 1,250 mcg PO FR Supplement 08/02/23
folic acid 1 mg tablet 1 mg PO HS Supplement 08/02/23
ibuprofen 800 mg tablet 800 mg PO Q8H PRN mild pain 08/02/23
lorazepam 1 mg tablet 1 mg PO TID PRN anxiety 08/02/23
omeprazole 40 mg capsule,delayed release 40 mg PO BID Gastrointestinal Issue 08/02/23
polyethylene glycol 3350 17 gram/dose oral powder (Miralax) 4 g PO DAILY PRN constipation 08/02/23
prochlorperazine maleate 10 mg tablet 10 mg PO Q8H PRN nausea/vomiting/headache 08/02/23
atogepant 60 mg tablet (Qulipta) 60 mg PO DAILY 11/10/23
levothyroxine 150 mcg tablet 175 mcg PO DAILY@0500 11/10/23
Review of Systems
-
History Source: Patient
A 12 point ROS was completed and negative except as noted: Yes
Constitutional: Denies Fever or Chills
EENT: Reports No Symptoms
Respiratory: Denies Cough or Trouble Breathing
Cardiac: Denies Chest Pain, Diaphoresis, Palpitations or Syncope
Abdomen/GI: Denies Abdominal Pain, Nausea, Vomiting, Diarrhea or Constipated
: Denies Dysuria, Frequency, Flank Pain or Incontinence
Musculoskeletal: Denies Joint Pain or Edema
Skin: Denies Itching or Rash
Neurological: Reports Dizzy and Headache; Denies Weakness
Endocrine: Reports No Symptoms
Hematologic/Lymphatic: Reports No Symptoms
Psych: Reports Calm
Physical Exam
Vital Signs
Vital Signs
Temp Pulse Resp BP Pulse Ox
99.0 F 63 11 106/53 92
02/07/25 19:27 02/07/25 23:00 02/07/25 23:00 02/07/25 23:00 02/07/25 23:00
Physical Exam
General: Well Developed, Well Nourished, No Apparent Distress and Comfortable
HEENT: NormoCephalic, Anicteric, Moist mucous membranes and Atraumatic
Respiratory: Clear
Cardiac: S1/S2 and Regular Rhythm
Breast: Deferred by me
GI: Soft, Non Tender, Non Distended and Normal Bowel Sounds
Rectal: Deferred by Provider
Genito-urinary: Deferred by me
Musculoskeletal: No Clubbing, No Cyanosis and No Edema
Skin: Warm and Dry; No Rash
Neuro: AO x 3 and Nonfocal/grossly intact
Hematologic/Lymphatic: No Lymphadenopathy
Psych: Calm
Laboratory Results
-
02/07/25 16:51
02/07/25 16:51
Laboratory Results
Total Bilirubin 0.5 mg/dl (0.2-1.3) 02/07/25 16:51
AST 23 U/L (14-36) 02/07/25 16:51
ALT 17 U/L (0-35) 02/07/25 16:51
Alkaline Phosphatase 68 U/L (38-126) 02/07/25 16:51
Data Reviewed
-
CT Scan: Report Reviewed by me
Medical Tests (Nuc Med, Echo, EKG etc): Image Personally Visualized and interpreted
Lab Data: Labs Reviewed by me
Old Records: Reviewed
Impression/Plan
-
IMPRESSION:
39-year-old female with past medical history significant for recurrent syncopal episode for which she has been diagnosed with psychogenic nonepileptic seizure disorder after our extensive or neurological and cardiovascular testing status post
ambulatory EEG, loop recorder and cardiac examination showing no abnormalities. Patient does follow with neurology and psychiatry at [place] [facility] respectively. Difficult to explain why she came to the emergency department today
but it appears that episodes of syncopal or nonresponsiveness has been increasing in duration. She apparently has been having these episodes for the last 1 year with a workup as stated above. Today she had episode lasting for about 30 minutes.
While she was seen in the emergency department she had multiple episode and a witnessed episode that lasted for about a minute and she responded to sternal rub. ECG, and CT of the head, labs were unremarkable. Her exam is unremarkable. She
currently complains of persistent headache which she states is developing into her migraine as well as vertigo.
PLAN:
1. Syncope - Recurrent syncope. Significant prior w/u with ambulatory EEG and loop recorder. No findings on these with her episodes. Her episode today did not show tell-tale signs of seizure or even cardiogenic syncope.
- admit to telemetry observation
- orthostatic vs
- echo
- cycle cardiac enzymes
- no indication for new EEG at this time
- CT head is negative
2. PNES/Bipolar
- continue her clonazepam 0.5 bid
- hydroxyzine
- continue lamotrigine and risperdal
- neurology consult for worsening episodes
3. Vertigo - recurrent and associated with migraines
- prn meclizine for now
4. Migraine headaches
- abortive measures with decadron/toradol/benadryl/reglan in ED
- prn toradol for now
5. Combined variable immunodeficiency
-Patient on daily Bactrim ppx
6.Hypothyroidism
-Continue levothyroxine 175 mcg daily
7.Celiac disease/ lactose intolerance
-Gluten-free, lactose-free diet
8.GERD
#IBS hx
-Continue Pepcid 20 mg twice daily, omeprazole 40 mg twice daily, Carafate 1 g p.o. 3 times daily
--- NOTE | 2025-02-08 00:37 | ED.GENMED ---
History of Present Illness
General
Chief Complaint: Fainting/Passed Out
Source: patient
Exam Limitations: none
Time Seen by Provider: 02/07/25 18:43
Nursing documentation reviewed up to this point in time: agreed with
History of Present Illness
History of Present Illness:
Note:
CHIEF COMPLAINT(S)
Dizziness and syncope.
HISTORY OF PRESENT ILLNESS
The patient is a 39-year-old female presenting with dizziness and multiple episodes of syncope. She reports passing out twice today, with one episode lasting over a minute and another lasting approximately 25 minutes. The dizziness began yesterday
around 6:30 PM and has progressively worsened, described as a sensation of pressure in her head similar to being punched in the eye. She experienced nausea and vomiting once yesterday but not today. She reports having fallen and landing on a hard
floor, wearing a helmet at home due to frequent syncope but is unsure if she hit her head during the fall. Her dizziness yesterday was preceded by a major migraine with loss of vision in one eye. She did not have a headache before her syncope but
developed one afterward. A CT scan was not performed during a prior ER visit last week. The patient is currently managed by a neurologist from [facility] and has a loop recorder in situ, which has not identified any notable arrhythmias.
PAST MEDICAL AND SURIGICAL HISTORY
- Postural orthostatic tachycardia syndrome
- Leiden factor V mutation
- Irritable bowel syndrome
- Genetic gluten intolerance
- Chronic obstructive pulmonary disease
- Thyroid condition
- Folic acid deficiency
- Iron deficiency
CHRONIC MEDICAL CONDITIONS SIGNIFICANTLY AFFECTING CARE
- Postural orthostatic tachycardia syndrome
- Leiden factor V mutation
- Chronic obstructive pulmonary disease
- Thyroid condition
MEDICATIONS
The patient reports taking Nortriptyline and Topiramate.
PHYSICAL EXAM
General: Alert, no acute distress.
Skin: Warm, dry.
Head: Normocephalic, atraumatic.
Neck: Supple, trachea midline.
Eyes, Ears, Nose, Mouth, and Throat: Oral mucosa moist.
Cardiovascular: Normal peripheral perfusion, no edema.
Respiratory: Respirations are non-labored.
Gastrointestinal: Abdomen nondistended.
Back: Normal range of motion, normal alignment.
Musculoskeletal: Normal ROM, normal strength.
Neurological: Alert and oriented to person, place, time, and situation, no focal neurological deficit observed.
Psychiatric: Cooperative, appropriate mood & affect.
PROBLEM LIST
Acute Issues:
- Syncope
- Dizziness
- Headache
- Nausea and vomiting
Chronic Conditions:
- Postural orthostatic tachycardia syndrome
- Leiden factor V mutation
- Irritable bowel syndrome
- Genetic gluten intolerance
- Chronic obstructive pulmonary disease
- Thyroid condition
- Folic acid deficiency
- Iron deficiency
PLAN
- Administer intravenous fluids to assess if symptoms might be due to hypovolemia.
- Administer regular Tylenol for headache relief.
- Conduct orthostatic vital signs assessments.
- Await the response to the administered fluids and reevaluate the patients condition.
DIFFERENTIAL DIAGNOSIS
The Differential Diagnosis includes, in no particular order and is not limited to:
- Postural orthostatic tachycardia syndrome exacerbation
- Migraine variant
- Hypovolemia
- Vestibular disorder
- Orthostatic hypotension
- Arrhythmia
- Medication side effect
- Anemia
- Vasovagal syncope
- Electrolyte imbalance
EKG
My independent EKG interpretation is:
- Time of EKG: Not specified in the rn production.
- Rhythm: Normal.
- Heart Rate: 87 beats per minute.
- UT Interval: Normal.
- QRS Duration: Normal.
- QT Interval: Normal.
- Bogart: Normal axis.
- Abnormalities: No evidence of acute ischemia.
- Comparison to Previous EKG: No significant change noted compared to the EKG dated January 30, 2025.
CARE-UPDATE
02/07/25 - 22:08
Patient experienced another syncopal episode while attempting to ambulate, observed by nursing staff, with no resultant injury. A CT scan of the head has been ordered by Dr. Brown.
Disposition:
SUMMARY OF ENCOUNTER
The patient is a 29-year-old female with multiple episodes of syncope and headache today. She has a history of psychogenic non-epileptic episodes and ocular migraines. She mentioned that she passed out yesterday and was seen in the emergency
department approximately one week ago for similar symptoms. Today, she reported an increase in syncope episodes. She follows neurology at [facility] and had contact with a neurologist today who advised her to come to the emergency department. A
loop recorder is in place as part of the investigation for syncope causes. Hospital admission is planned for further evaluation and management of psychogenic non-epileptic seizures and syncope episodes.
DISPOSITION
Admit to the hospitalist service.
ASSESSMENT
The patient is admitted for further evaluation of psychogenic non-epileptic seizures and syncope episodes.
MANAGEMENT OF THE PATIENTS CARE WAS DISCUSSED WITH
The hospitalist is aware and involved in the patients care management.
MEDICAL DECISION MAKING
- Number and Complexity of Problems Addressed: Chronic conditions affecting care include psychogenic non-epileptic episodes and ocular migraines.
- Data:
- Category 2: Clinical information was obtained from the patients recent contact with her neurologist at [facility].
- Category 3: Discussion of management with the hospitalist who will be overseeing the patients inpatient evaluation and management.
Past History
Past History
ED Past Medical History: Asthma, GERD, Hypothyroidism, Psychiatric (Anxiety, depression, bipolar), Other (Chronic back pain, celiac disease, IBS, PCOS, pneumonia, Cluster headaches, Colitis) and Other (Positive MISTY)
ED Past Surgical History: Cholecystectomy, Orthopedic (Right knee surgery) and Tonsilectomy
Social History
Tobacco: Non-smoker
Alcohol: None
Drug: None
Personal:
Living: with family
Employment: Employed
Family History
Family History: Other (Mother with coronary artery disease and breast cancer)
Phy Exam
General Physical Exam
General Presentation: well appearing and no apparent distress
General Skin: warm and dry
General Habitus: normal
General Mental: alert
General Hydration: appears well hydrated
ENT Exam
ENT Exam: EOMI, pharynx normal, neck supple and normocephalic
Eye Exam
Eye Exam: PERRL, cornea clear and conjunctiva normal
Cardiovascular Exam
Cardiovascular Exam: regular rate/rhythm, no edema, no murmur and normal peripheral pulses
Pulmonary Exam
Pulmonary Exam: lungs clear, no respiratory distress, no rales, no crackles, no rhonchi, no stridor, no wheezing and no cough
Gastrointestinal Exam
Gastrointestinal Exam: normal bowel sounds, non tender, soft, no organomegaly, no pulsatile mass and non distended
Neurological Exam
Neurological Exam: alert, oriented x3, no motor deficits and speech normal
Musculoskeletal Exam
Musculoskeletal Exam: full ROM and no edema
Skin Exam
Skin Exam: normal color, warm/dry, no rash and no petechia
Psychiatric Exam
Psychiatric Exam: normal mood/affect
Course
Orders/Labs/Results
Orders:
Orders
02/07/25 16:41
Electrocardiogram (*1) Urgent
Reason for Study: Chest Pain
EKG- Treatment ONCE
02/07/25 16:51
Complete Blood Count/With Diff Urgent
Comprehensive Metabolic Panel Urgent
02/07/25 20:07
Orthostatic VS- Treatment ONCE
0.9% Sodium Chloride 1000 ml [Nss] 1,000 ml IV BOLUS
Acetaminophen [Tylenol] 650 mg PO NOW STA
02/07/25 22:29
Ibuprofen [Motrin] 600 mg PO NOW STA
02/08/25 00:00
CT Head W/o Iv Contrast Urgent
Reason For Exam: Multiple syncople episodes including in ER
Abnormal Lab Results
02/07/25
16:51
Chloride 108 H mmol/L
(98-107)
Carbon Dioxide 17 L mmol/L
(22-30)
Glucose 122 H mg/dl
(70-99)
02/07/25 16:51
02/07/25 16:51
Vital Signs
Initial and Last Documented VS:
Initial Vital Signs
Temp Pulse Resp BP Pulse Ox
99.0 F 93 18 141/89 97
02/07/25 16:36 02/07/25 16:36 02/07/25 16:36 02/07/25 16:36 02/07/25 16:36
Last Documented Vital Signs
Temp Pulse Resp BP Pulse Ox
99.0 F 63 11 106/53 92
02/07/25 19:27 02/07/25 23:00 02/07/25 23:00 02/07/25 23:00 02/07/25 23:00
*Radiology
Radiology exam reviewed: radiology read reviewed
*Pulse Oximetry
SaO2: 92
Oxygen Mode of Delivery: Room air
Patient hypoxic: no
*Critical Care Note
Total Time (30-74mins, 75-104mins- exclusive of procedures): Not Applicable
Update Note
Update Note:
NAME: MAHSA MARSHALL
DATE OF EXAM: 02/08/2025
Patient No: [id number]
Physician: KYAW^Bianca
Date of : 1985
Past Medical History (entered by Technologist):
Reason For Exam (entered by Technologist):
Other Notes (entered by Technologist): Patient arrives to the ED c/o fainting. Patient states she passed out last night for 30 minutes. Patient also states that she passed out a little while ago for approx 25 minutes. Patient states that the left
side of her head has pressure. Patient wears a helmet at home for a condition that causes her to pass out. Patient notes severe dizzy.
Prior sent
Additional Information (per [facility]iologist):
CT HEAD
IMPRESSION:
No acute hemorrhage, herniation, or hydrocephalus.
No calvarial fracture.
The visualized paranasal sinuses and mastoid air cells are clear.
Case finalized on Feb 08 2025 12:31AM ET
ED Attending Note
-
Portions of this chart may have been created with voice recognition software.� Occasional wrong word or��sound alike� substitutions may have occurred due to the inherent limitations of voice recognition software.
Discharge Plan
Departure
Patient Disposition: Admit
Date of Disposition: 02/08/25
Time of Disposition: 00:43
Admit to: Telemetry
Presentation/result/management discussed w/ accepting MD/DO: Hospitalist
Discharge Problem:
Psychogenic nonepileptic episodes, Headache
Prescriptions:
No Action
fluoxetine [Prozac] 40 MG capsule
80 mg PO HS
famotidine 20 MG tablet
20 mg PO HS
ferrous sulfate [FeroSul] 325 MG tablet
325 mg PO DAILY
lamotrigine 100 MG tablet
100 mg PO BID
cetirizine [Zyrtec] 10 mg Tablet
10 mg PO HS
sulfamethoxazole-trimethoprim 800-160 mg tablet
1 tab PO DAILY
magnesium oxide 400 mg (241.3 mg magnesium) tablet
400 mg PO TID
loratadine 10 mg tablet
10 mg PO DAILY
budesonide-formoterol [Symbicort] 160-4.5 mcg/actuation HFA aerosol inhaler
2 puff INHALATION BID
sucralfate [Carafate] 1 gram tablet
1 g PO TID PRN (Reason: Gastrointestinal Issue)
melatonin 3 mg Tablet
3 - 6 mg PO HS Qty: 0
budesonide-formoterol [Symbicort] 160-4.5 mcg/actuation HFA aerosol inhaler
2 puff INHALATION R Q4HPRN MDD 12 PUFF/24HRS PRN (Reason: SOB)
diphenhydramine HCl [Benadryl] 25 mg capsule
25 mg PO TID PRN (Reason: headache) Qty: 60 0RF
risperidone 1 mg tablet
1 mg PO TID
Saline Nasal Mist
1 dose intranasal BID
Rx Instructions:
USE IN NASAL RINSE WITH BUDESONIDE
fluticasone propionate 1 SPRAY spray,suspension
2 spray intranasal DAILY PRN (Reason: if nasal rinse unavailable)
ibuprofen 800 mg tablet
800 mg PO Q8H PRN (Reason: mild pain)
omeprazole 40 mg capsule,delayed release(DR/EC)
40 mg PO BID
buspirone 10 mg tablet
15 mg PO TID
folic acid 1 mg Tablet
1 mg PO HS
ergocalciferol (vitamin D2) 1,250 mcg (50,000 unit) capsule
1,250 mcg PO FR
lorazepam 1 mg tablet
1 mg PO TID PRN (Reason: anxiety)
Patient Comments:
08/02/2023: last filled 02/11/23, 30 tabs for 30 days from [facility]
Rx Instructions:
TAKES AT 8AM, 12 NOON, 4 PM AND 8 PM
prochlorperazine maleate 10 mg tablet
10 mg PO Q8H PRN (Reason: nausea/vomiting/headache)
Rx Instructions:
as needed every 8 hours nausea/headache
levothyroxine 150 mcg tablet
175 mcg PO DAILY@0500
Qulipta 60 mg Tablet
60 mg PO DAILY
hydroxyzine HCl 25 mg Tablet
25 mg PO .2PM AND 6PM
hydroxyzine HCl 10 mg Tablet
10 mg PO .10 AM AND 8 PM
Referrals:
Barbara Murcia CRNP [Primary Care Provider, General]
Interventions
Interventions:
*Risk Screen - Suicide Last Done: 02/07/25 16:36
*General Assessment Last Done: 02/07/25 19:14
*Neglect/Abuse Screening Last Done: 02/07/25 19:14
*ED- Fall Risk Assessment Last Done: 02/07/25 19:14
*ED COVID-19 Vaccine History Last Done: 02/07/25 19:14
ED- Cardiac Assessment Last Done: 02/07/25 19:14
ED- Neurological Assessment Last Done: 02/07/25 19:14
ED Swallowing Screen Last Done: 02/07/25 20:16
Discharge Date and Time
Print Language: MOHAWK
[2025-02-08] MEDS: LAMICTAL 100 MG PO ×3 (01:12→21:12)
[2025-02-08] MEDS: PROZAC 80 MG PO ×2 (01:13→21:10)
[2025-02-08] MEDS: DECADRON 10 MG IV (01:16)
[2025-02-08] MEDS: BENADRYL 25 MG IV (01:17)
[2025-02-08] MEDS: REGLAN 10 MG IV ×3 (01:18→18:15)
[2025-02-08] MEDS: TORADOL 15 MG IV (01:19)
[2025-02-08] MEDS: RISPERDAL 1 MG PO ×3 (01:36→20:43)
[2025-02-08] MEDS: TYLENOL 650 MG PO ×2 (03:36→18:17)
[2025-02-08 03:46] LABS: Urine Character Clear (Clear)
[2025-02-08 04:17] LABS: Urine Squamous Cell >30 /LPF (Few)
--- NOTE | 2025-02-08 04:19 | PTCARENOTE ---
rec'd pt from ER. ambulated with standby assistance to the bed. Complains of mild headache. no complaints of dizziness/lightheadedness. med rec done. oriented to room and unit. call kate in reach.
[2025-02-08 05:31] LABS: Hematocrit 36.2 % (37.0-47.0); Hemoglobin 12.4 g/dL (12.0-16.0); Mean Corp Hgb Conc. 34.3 g/dL (33.0-37.0); Mean Corpuscular Volume 90.0 fL (81.0-99.0); Platelet Count 228 10^3/uL (130-400); Red Cell Dist. Width 11.6 % (11.5-14.5)
[2025-02-08 06:00] LABS: Blood Urea Nitrogen 10 mg/dl (7-17); Calcium 9.4 mg/dl (8.4-10.2); Carbon Dioxide 22 mmol/L (22-30); Chloride 107 mmol/L (98-107); Estimated Creatinine Clearance 102 ml/min; Glucose 107 mg/dl (70-99); Potassium 4.9 mmol/L (3.5-5.1); Sodium 137 mmol/L (135-145); eGFR > 60.00
[2025-02-08 06:28] LABS: TSH 0.11 uIU/ml (0.47-4.68)
[2025-02-08] MEDS: SYNTHROID 175 MCG PO (06:29)
[2025-02-08] MEDS: BUSPAR 15 MG PO ×3 (08:13→21:23)
[2025-02-08] MEDS: CLARITIN 10 MG PO (08:13)
[2025-02-08] MEDS: PROTONIX 40 MG PO ×2 (08:13→20:43)
[2025-02-08] MEDS: FEOSOL 325 MG PO (08:13)
[2025-02-08] MEDS: BACTRIM DS 800 MG/160 MG 1 TABLET PO (08:18)
[2025-02-08] MEDS: TORADOL 10 MG IV ×2 (08:21→15:06)
[2025-02-08] MEDS: ATARAX 10 MG PO ×2 (10:36→21:12)
--- NOTE | 2025-02-08 12:02 | W.PN.HOSP.TC ---
Today's Communication/Plan
-
Monitor for orthostasis.
Continue pre-admission neurologic regimen
ECHO
Observe for recurrent symptoms
OP work up for narcolepsy scheduled for sleep st on 02/09
Assessment / Plan
Assessment / Plan
IMPRESSION:
39-year-old female with past medical history significant for recurrent syncopal episode for which she has been diagnosed with psychogenic nonepileptic seizure disorder after our extensive or neurological and cardiovascular testing status post
ambulatory EEG, loop recorder and cardiac examination showing no abnormalities. Patient does follow with neurology and psychiatry at [facility] respectively. Difficult to explain why she came to the emergency department today
but it appears that episodes of syncopal or nonresponsiveness has been increasing in duration. She apparently has been having these episodes for the last 1 year with a workup as stated above. Today she had episode lasting for about 30 minutes.
While she was seen in the emergency department she had multiple episode and a witnessed episode that lasted for about a minute and she responded to sternal rub. ECG, and CT of the head, labs were unremarkable. Her exam is unremarkable. She
currently complains of persistent headache which she states is developing into her migraine as well as vertigo.
PLAN:
1. Syncope - Recurrent syncope. Significant prior w/u with ambulatory EEG and loop recorder. No findings on these with her episodes. Her episode today did not show tell-tale signs of seizure or even cardiogenic syncope.
- admit to telemetry observation
- orthostatic vs
- echo pending
- cycle cardiac enzymes
- no indication for new EEG at this time
- CT head is negative
2. PNES/Bipolar
- continue her clonazepam 0.5 bid
- hydroxyzine
- continue lamotrigine and risperdal
- neurology consult for worsening episodes
3. Vertigo - recurrent and associated with migraines
- prn meclizine for now
4. Migraine headaches
- abortive measures with decadron/toradol/benadryl/reglan in ED
- prn toradol for now
5. Combined variable immunodeficiency
-Patient on daily Bactrim ppx
6.Hypothyroidism
-Continue levothyroxine 175 mcg daily
7.Celiac disease/ lactose intolerance
-Gluten-free, lactose-free diet
8.GERD
#IBS hx
-Continue Pepcid 20 mg twice daily, omeprazole 40 mg twice daily, Carafate 1 g p.o. 3 times daily
Anticipated Discharge: Within 24 hours
Subjective/Interval History
-
Date of Service: February 08, 2025
Objective Data
-
Labs:
Laboratory Results
02/08/25
05:09
WBC 6.2
Hgb 12.4
Hct 36.2 L
Plt Count 228
Sodium 137
Potassium 4.9
Chloride 107
Carbon Dioxide 22
BUN 10
Creatinine 1.0
Glucose 107 H
Calcium 9.4
Vital Signs:
Vital Signs
Temp Pulse Resp BP Pulse Ox
97.7 F 82 18 144/83 99
02/08/25 11:00 02/08/25 11:00 02/08/25 11:00 02/08/25 11:00 02/08/25 11:00
Physical Exam
-
General: Well Developed and No Apparent Distress
HEENT: Normocephalic, Atraumatic and Moist Mucous Membranes
Respiratory: Clear to Auscultation
Cardiac: Regular Rhythm and S1/S2; Negative Murmur, Rub or Gallop
GI: Soft, Nontender, Nondistended and Normal Bowel Sounds; Negative Organomegaly
Rectal: Deferred by Provider
Musculoskeletal: No Clubbing, No Cyanosis and No Edema
Skin: Negative Rash
Neuro: Nonfocal/Grossly Intact
[2025-02-08] MEDS: ANTIVERT 25 MG PO (12:55)
[2025-02-08] MEDS: KLONOPIN 0.5 MG PO ×2 (12:56→21:16)
--- NOTE | 2025-02-08 12:58 | CM ---
OBS letter provided to patient at 10am, patient lives with significant other in a 2 story home, patient is independent with adl's and ambulation no dme, patient does not drive, plan is to home when stable,. no needs.
PCP: Barbara Murcia
Pharmacy: [facility]
[2025-02-08] MEDS: ATARAX 25 MG PO ×2 (14:08→18:17)
--- NOTE | 2025-02-08 14:44 | PTCARENOTE ---
At approximately 1150, pt had an episode of syncope while laying in her bed a few minutes after she was walked back to bed from the bathroom. She mentioned that she needed her morning dose of her Clonazepam, which we were waiting for an order for at
that time. Pt woke up after about two minutes without stimulus. Vital signs obtained. Approximately two minutes later, she appeared lethargic and was talking slowly. When asked if she normally talks slowly, she said 'I talk like that when I'm about
to pass out', as she began to faint again. Her bed was placed in Trendelenburg and she woke up about 3-5 minutes after fully alert. notified and came in soon after.
[2025-02-08] MEDS: KLONOPIN PO (17:38)
[2025-02-08] MEDS: BUSPAR PO (21:11)
[2025-02-08] MEDS: FOLVITE 1 MG PO (21:11)
[2025-02-08] MEDS: PEPCID 20 MG PO (21:12)
[2025-02-09] MEDS: REGLAN 10 MG IV (01:58)
[2025-02-09] MEDS: TORADOL 10 MG IV ×2 (01:59→09:14)
[2025-02-09] MEDS: BENADRYL 25 MG PO (02:00)
[2025-02-09 03:46] VITALS: BP 120/65
[2025-02-09] MEDS: SYNTHROID 175 MCG PO (05:47)
[2025-02-09 07:49] VITALS: BP 137/74
[2025-02-09] MEDS: FEOSOL 325 MG PO (08:15)
[2025-02-09] MEDS: CLARITIN 10 MG PO (08:15)
[2025-02-09] MEDS: BACTRIM DS 800 MG/160 MG 1 TABLET PO (08:15)
[2025-02-09] MEDS: PROTONIX 40 MG PO (08:15)
[2025-02-09] MEDS: BUSPAR 15 MG PO (08:16)
[2025-02-09] MEDS: KLONOPIN 0.5 MG PO (08:16)
[2025-02-09] MEDS: LAMICTAL 100 MG PO (08:17)
[2025-02-09] MEDS: RISPERDAL 1 MG PO (08:18)
[2025-02-09] MEDS: ANTIVERT 25 MG PO (09:14)
[2025-02-09] MEDS: ATARAX 10 MG PO (10:14)
--- NOTE | 2025-02-09 11:12 | W.DS.TRANS ---
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
-
Discharge Instructions:
Discharge Diagnosis/Procedures Syncope
Diet Regular
Instructions:
Stand-Alone Forms:
Changes to Home Medications: No
Discharge Medications:
DC Medications w/original date entered in [facility]
fluoxetine 40 mg capsule (Prozac) 80 mg PO HS Depression 07/30/17
famotidine 20 mg tablet 20 mg PO HS acid reflux 04/10/21
ferrous sulfate 325 mg (65 mg iron) tablet (FeroSul) 325 mg PO DAILY Supplement 04/22/21
lamotrigine 100 mg tablet 100 mg PO BID Neurological Condition 04/22/21
budesonide-formoterol HFA 160 mcg-4.5 mcg/actuation aerosol inhaler (Symbicort) 2 puff inhalation BID Lung/Breathing Issues 03/05/23
cetirizine 10 mg tablet (Zyrtec) 10 mg PO HS Allergies 03/05/23
loratadine 10 mg tablet 10 mg PO DAILY Allergies 03/05/23
magnesium oxide 400 mg (241.3 mg magnesium) tablet 400 mg PO TID supplement 03/05/23
melatonin 3 mg tablet 3 - 6 mg PO HS Sleep ##0 03/05/23
sucralfate 1 gram tablet (Carafate) 1 g PO TID PRN Gastrointestinal Issue 03/05/23
sulfamethoxazole 800 mg-trimethoprim 160 mg tablet 1 tab PO DAILY Infection 03/05/23
budesonide-formoterol HFA 160 mcg-4.5 mcg/actuation aerosol inhaler (Symbicort) 2 puff inhalation R Q4HPRN PRN SOB 03/06/23
diphenhydramine HCl 25 mg capsule (Benadryl) 25 mg PO TID PRN headache #60 caps 03/12/23
Saline Nasal Mist 1 dose intranasal BID Congestion 06/04/23
fluticasone propionate 50 mcg/actuation nasal spray,suspension 2 spray intranasal DAILY PRN if nasal rinse unavailable 06/04/23
risperidone 1 mg tablet 2 mg PO BID Mental Health/Anxiety 06/04/23
buspirone 10 mg tablet 15 mg PO TID Mental Health/Anxiety 08/02/23
ergocalciferol (vitamin D2) 1,250 mcg (50,000 unit) capsule 1,250 mcg PO FR Supplement 08/02/23
folic acid 1 mg tablet 1 mg PO HS Supplement 08/02/23
ibuprofen 800 mg tablet 800 mg PO Q8H PRN mild pain 08/02/23
omeprazole 40 mg capsule,delayed release 40 mg PO BID Gastrointestinal Issue 08/02/23
prochlorperazine maleate 10 mg tablet 10 mg PO Q8H PRN nausea/vomiting/headache 08/02/23
atogepant 60 mg tablet (Qulipta) 60 mg PO DAILY migraine 11/10/23
levothyroxine 150 mcg tablet 175 mcg PO DAILY@0500 Thyroid 11/10/23
hydroxyzine HCl 10 mg tablet 10 mg PO .10 AM AND 8 PM 11/04/24
hydroxyzine HCl 25 mg tablet 25 mg PO .2PM AND 6PM 11/04/24
clonazepam 0.5 mg tablet 0.5 mg PO BID Mental Health/Anxiety 02/08/25
meclizine 25 mg tablet 25 mg PO Q8HPRN PRN vertigo #20 tabs 02/09/25
Home Medication Changes
Pending Results: No
[2025-02-09 11:13] VITALS: BP 133/68
--- NOTE | 2025-02-09 13:04 | CM ---
CM reviewed chart, patient seen bedside, for discharge today. Patient denies needs upon discharge, confirms transportation home. CM will continue to follow for all discharge planning needs.
Plan; home no needs
[2025-02-09] MEDS: ATARAX 25 MG PO (13:59)
== END 2025-02-09 14:49 | disposition home or self-care (01) ==
LOC: 4 WEST ACU 02:35
PROVIDERS: Emergency Medicine; ADMITTING PHYSICIAN Internal Medicine; ATTENDING PHYSICIAN Internal Medicine; EMERGENCY PHYSICIAN Student in an Organized Health Care Education/Training Program; PRIMARYCARE PHYSICIAN Nurse Practitioner
DX: F44.5 Conversion disorder with seizures or convulsions (principal); R55 Syncope and collapse; R42 Dizziness and giddiness; G43.909 Migraine, unspecified, not intractable, without status migrainosus; D84.9 Immunodeficiency, unspecified; E03.9 Hypothyroidism, unspecified; E61.1 Iron deficiency; E73.9 Lactose intolerance, unspecified; F31.9 Bipolar disorder, unspecified; K90.0 Celiac disease; K58.9 Irritable bowel syndrome, unspecified; K21.9 Gastro-esophageal reflux disease without esophagitis; Z79.899 Other long term (current) drug therapy; J44.89 Other specified chronic obstructive pulmonary disease; G90.A Postural orthostatic tachycardia syndrome [POTS]
CPT/HCPCS: 70450; 80048; 80053; 81003; 81015; 84443; 85025; 85027; 87086; 93005; 99285; G0378

== ENCOUNTER 2025-02-22 21:07 | Emergency (ER) | payer OTHER, SELFPAY ==
[2025-02-22 21:11] VITALS: BP 123/73
--- NOTE | 2025-02-22 23:12 | ED.GENMED ---
History of Present Illness
General
Chief Complaint: Fall
Time Seen by Provider: 02/22/25 23:12
History of Present Illness
History of Present Illness:
FOCUSED PAST MEDICAL HISTORY
- See below
REVIEW OF OLD RECORDS
- I reviewed records, the patient was recently admitted with headache just over a week ago has a history of recurrent noncardiogenic syncope, nonepileptic form seizures with history of bipolar, chronic vertigo and migraine headaches, CVID,
hypothyroidism. Of note she was discharged on 28 medications last admission. Patient
Note:
CHIEF COMPLAINT(S)
Neck pain, lower back pain radiating to the right leg, and right shoulder pain after a fall down the stairs.
HISTORY OF PRESENT ILLNESS
The patient is a 40-year-old female who presented to the emergency department following a fall down the stairs at home. At the time of the fall, she was alone and subsequently took an Uber to the hospital. She reported a past medical history of a
neck fusion surgery in January 2024 due to a previous fall. Currently, she is experiencing neck pain, lower back pain radiating down the right leg to the knee area, and right shoulder pain. She describes the pain as significant and has taken
ibuprofen prior to arriving at the ED. She requested stronger pain medication and was noted to have previously used pain medications. The approach will include imaging to evaluate the cervical spine, lumbar spine, brain, and an X-ray for the right
shoulder.
PAST MEDICAL AND SURGICAL HISTORY
- Neck fusion surgery in January 2024 due to a past injury.
PHYSICAL EXAM
- General: Well appearing but appears slightly uncomfortable
- Head: No craniofacial trauma
- C-spine: C-collar in place and she does have midline C-spine tenderness
- Back: Decreased AROM thoracolumbar spine and mild diffuse lumbar tenderness
- HEENT: Moist oral mucosa, no blood
- Cardiovascular: No murmurs, normal heart rate, regular rhythm, No chest wall tenderness
- Pulmonary: No respiratory distress, breath sounds are clear and equal
- Abdomen: Soft with no peritoneal signs, no tenderness
- Neurologic: Excellent strength all extremities, no coordination deficits
- Psychiatric: Appropriate mental status, normal insight and judgement
- Extremities: Nontender, no edema, moves all extremities equally however there seems to be some vague discomfort with palpation of the right shoulder with slightly decreased active range of motion
- Skin: No rash, no lesions
PLAN
- Order CT scans of the brain, cervical spine, and lumbar spine.
- Obtain an X-ray of the right shoulder.
- Perform a test as required for CT imaging protocols.
- Administer Percocet for pain relief.
DIFFERENTIAL DIAGNOSIS
The Differential Diagnosis includes, in no particular order and is not limited to:
- Acute musculoskeletal strain
- Disc herniation
- Cervical radiculopathy
- Lumbar radiculopathy
- Fracture or dislocation
- Nerve injury
- Spinal stenosis
- Contusion
- Ligamentous injury
- Muscle spasm
MEDICATION RECONCILIATION
- Percocet administered in the emergency department.
- Ibuprofen taken by the patient before ED arrival.
MEDICAL DECISION MAKING
- Number and Complexity of Problems Addressed:
Chronic conditions affecting care: History of neck surgery.
- Data:
Category 1:
- Ordered CT scans of the brain, cervical spine, and lumbar spine.
- Ordered X-ray of the right shoulder.
- test considered necessary for imaging procedures.
Category 2:
- Clinical information obtained from the patient regarding the fall and symptoms.
- Risk:
Prescription medication was prescribed: Percocet for pain management.
DIAGNOSIS
- Cervicalgia following a fall (ICD-10: M54.2)
- Lumbar radiculopathy (ICD-10: M54.16)
- Pain in right shoulder (ICD-10: M25.511)
- History of neck fusion (ICD-10: Z98.1)
RADIOLOGY
- X-ray right shoulder unremarkable
LABS
- Urine hCG negative
UPDATE
-SUMMARY OF ENCOUNTER
The patient, a 40-year-old female, was seen in the emergency department following a fall down the stairs. She reported significant neck pain, lower back pain radiating to the right leg, and right shoulder pain. Her past medical history is notable
for neck fusion surgery due to a previous injury. Imaging was conducted, including CT scans of the brain, cervical spine, lumbar spine, and an X-ray of the right shoulder. No fractures, dislocations, or signs of bleeding in the brain were found. The
patient was administered Percocet for pain management.
DISPOSITION
Discharge
EMERGENCY TREATMENTS ADMINISTERED
Percocet administered for pain relief.
PLAN
The patient will be discharged with recommendations for pain management and follow-up as necessary.
MEDICATION RECONCILIATION
Ibuprofen taken by the patient before arrival.
Percocet was administered in the emergency department for pain relief.
MEDICAL DECISION MAKING
- Number and Complexity of Problems Addressed: Chronic conditions affecting care: History of neck surgery. Differential Diagnosis includes acute musculoskeletal strain, disc herniation, cervical radiculopathy, lumbar radiculopathy, fracture or
dislocation, nerve injury, spinal stenosis, contusion, ligamentous injury, muscle spasm.
- Data:
Category 1: CT scans of the brain, cervical spine, and lumbar spine were completed. X-ray of the right shoulder was also performed.
Category 2: Clinical information was obtained from the patient regarding the fall and symptoms.
- Risk:
Prescription medication was prescribed: Percocet was given as a one-time dose in the emergency department
DIAGNOSIS
Cervicalgia following a fall (ICD-10: M54.2)
Lumbar radiculopathy (ICD-10: M54.16)
Pain in right shoulder (ICD-10: M25.511)
History of neck fusion (ICD-10: Z98.1)
Past History
Past History
ED Past Medical History: Asthma, GERD, Hypothyroidism, Psychiatric (Anxiety, depression, bipolar), Other (Chronic back pain, celiac disease, IBS, PCOS, pneumonia, Cluster headaches, Colitis) and Other (Positive MISTY)
ED Past Surgical History: Cholecystectomy, Orthopedic (Right knee surgery) and Tonsilectomy
Social History
Tobacco: Non-smoker
Alcohol: None
Drug: None
Personal:
Living: with family
Employment: Employed
Family History
Family History: Other (Mother with coronary artery disease and breast cancer)
Phy Exam
Physical Exam
Physical Exam:
See HPI
Course
Orders/Labs/Results
Orders:
Orders
02/22/25 21:21
EKG [Electrocardiogram (*1)] Urgent
Reason for Study: Syncope
EKG- Treatment ONCE
02/22/25 23:22
Oxycodone/Acetaminophen [Percocet 5/325] 1 tablet PO NOW STA
Test Result ONCE
02/22/25 23:32
HCG, Urine Qualitative Screen Urgent
Date Specimen was Collected: 02/22/25
Time Specimen was Collected: 23:29
02/23/[address] Cervical Spine W/o Iv Contr Urgent
Reason For Exam: trauma pain prior fusion
CT Head W/o Iv Contrast Urgent
Reason For Exam: trauma
CT Lumbar Spine W/o Iv Contras Urgent
Reason For Exam: trauma pain
02/23/25 00:15
CR Shoulder, Trauma - Right Urgent
Reason For Exam: trauma
Vital Signs
Initial and Last Documented VS:
Initial Vital Signs
Temp Pulse Resp BP Pulse Ox
36.8 C 82 16 123/73 99
02/22/25 21:11 02/22/25 21:11 02/22/25 21:11 02/22/25 21:11 02/22/25 21:11
Last Documented Vital Signs
Temp Pulse Resp BP Pulse Ox
36.8 C 71 13 113/59 96
02/22/25 21:11 02/23/25 00:45 02/23/25 00:45 02/23/25 00:00 02/23/25 00:45
*Pulse Oximetry
SaO2: 99
Oxygen Mode of Delivery: Room air
Patient hypoxic: not evaluated
*Critical Care Note
Total Time (30-74mins, 75-104mins- exclusive of procedures): Not Applicable
ED Attending Note
-
Portions of this chart may have been created with voice recognition software.� Occasional wrong word or��sound alike� substitutions may have occurred due to the inherent limitations of voice recognition software.
Discharge Plan
Departure
Patient Disposition: Home (Routine Discharge)
Date of Disposition: 02/23/25
Time of Disposition: 02:29
Patient with high blood pressure during this ER visit?: Yes
Discharge Problem:
Fall
Prescriptions:
No Action
fluoxetine [Prozac] 40 MG capsule
80 mg PO HS
famotidine 20 MG tablet
20 mg PO HS
ferrous sulfate [FeroSul] 325 MG tablet
325 mg PO DAILY
lamotrigine 100 MG tablet
100 mg PO BID
cetirizine [Zyrtec] 10 mg Tablet
10 mg PO HS
sulfamethoxazole-trimethoprim 800-160 mg tablet
1 tab PO DAILY
magnesium oxide 400 mg (241.3 mg magnesium) tablet
400 mg PO TID
loratadine 10 mg tablet
10 mg PO DAILY
budesonide-formoterol [Symbicort] 160-4.5 mcg/actuation HFA aerosol inhaler
2 puff INHALATION BID
sucralfate [Carafate] 1 gram tablet
1 g PO TID PRN (Reason: Gastrointestinal Issue)
melatonin 3 mg Tablet
3 - 6 mg PO HS Qty: 0
budesonide-formoterol [Symbicort] 160-4.5 mcg/actuation HFA aerosol inhaler
2 puff INHALATION R Q4HPRN MDD 12 PUFF/24HRS PRN (Reason: SOB)
diphenhydramine HCl [Benadryl] 25 mg capsule
25 mg PO TID PRN (Reason: headache) Qty: 60 0RF
risperidone 1 mg tablet
2 mg PO BID
Saline Nasal Mist
1 dose intranasal BID
Rx Instructions:
USE IN NASAL RINSE WITH BUDESONIDE
fluticasone propionate 1 SPRAY spray,suspension
2 spray intranasal DAILY PRN (Reason: if nasal rinse unavailable)
ibuprofen 800 mg tablet
800 mg PO Q8H PRN (Reason: mild pain)
omeprazole 40 mg capsule,delayed release(DR/EC)
40 mg PO BID
buspirone 10 mg tablet
15 mg PO TID
folic acid 1 mg Tablet
1 mg PO HS
ergocalciferol (vitamin D2) 1,250 mcg (50,000 unit) capsule
1,250 mcg PO FR
prochlorperazine maleate 10 mg tablet
10 mg PO Q8H PRN (Reason: nausea/vomiting/headache)
Rx Instructions:
as needed every 8 hours nausea/headache
levothyroxine 150 mcg tablet
175 mcg PO DAILY@0500
Qulipta 60 mg Tablet
60 mg PO DAILY
hydroxyzine HCl 25 mg Tablet
25 mg PO .2PM AND 6PM
hydroxyzine HCl 10 mg Tablet
10 mg PO .10 AM AND 8 PM
clonazepam 0.5 mg Tablet
0.5 mg PO BID
Patient Comments:
lorazepam was d/c'd and was started on this
Rx Instructions:
8am and 4pm
meclizine 25 mg Tablet
25 mg PO Q8HPRN PRN (Reason: vertigo) Qty: 20 0RF
Referrals:
Barbara Murcia CRNP [Family Provider, General]
Activity Restrictions/Additional Instructions:
The CAT scan of your brain shows no acute abnormality. There is no sign of trauma. The CAT scan of the cervical and lumbar spine also showed no sign of new traumatic issues. Normal postoperative findings were noted in the cervical spine.
Interventions
Interventions:
*Risk Screen - Suicide Last Done: 02/22/25 21:11
*Neglect/Abuse Screening Last Done: 02/22/25 21:11
*ED- Fall Risk Assessment Last Done: 02/22/25 21:11
ED-Musculoskeletal Assessment Last Done: 02/22/25 23:15
ED- Neurological Assessment Last Done: 02/22/25 23:15
ED-Skin Assessment Last Done: 02/22/25 23:15
Discharge Date and Time
Print Language: EGYPTIAN
[2025-02-22 23:27] VITALS: BMI 41.2
[2025-02-22 23:43] LABS: HCG, Urine Qualitative Screen Negative
[2025-02-22] MEDS: PERCOCET 5/325 1 TABLET PO (23:48)
[2025-02-22 23:54] VITALS: BP 113/66
[2025-02-23] VITALS (7 sets, daily range): BP systolic 97–116; BP diastolic 52–75
== END 2025-02-23 03:05 | disposition home or self-care (01) ==
LOC: EMR 21:07
PROVIDERS: EMERGENCY PHYSICIAN Emergency Medicine; FAMILY PHYSICIAN Nurse Practitioner
DX: M54.2 Cervicalgia (principal); M54.16 Radiculopathy, lumbar region; M79.604 Pain in right leg; M25.511 Pain in right shoulder; W10.9XXA Fall (on) (from) unspecified stairs and steps, initial encounter; Y92.009 Unspecified place in unspecified non-institutional (private) residence as the place of occurrence of the external cause; F31.9 Bipolar disorder, unspecified; G43.909 Migraine, unspecified, not intractable, without status migrainosus; G89.29 Other chronic pain; K90.0 Celiac disease; K58.9 Irritable bowel syndrome, unspecified; E28.2 Polycystic ovarian syndrome; F41.9 Anxiety disorder, unspecified; F32.A Depression, unspecified; E03.9 Hypothyroidism, unspecified; J45.909 Unspecified asthma, uncomplicated; G40.89 Other seizures; K21.9 Gastro-esophageal reflux disease without esophagitis; K52.9 Noninfective gastroenteritis and colitis, unspecified; Z87.01 Personal history of pneumonia (recurrent); M43.22 Fusion of spine, cervical region; Z90.49 Acquired absence of other specified parts of digestive tract; Z91.011 Allergy to milk products; Z88.8 Allergy status to other drugs, medicaments and biological substances; Z91.018 Allergy to other foods
CPT/HCPCS: 99285; 70450; 72125; 72131; 73030; 81025; 93005

== ENCOUNTER 2025-02-28 22:09 | Inpatient (IN) | payer OTHER, SELFPAY ==
[2025-02-28 15:24] VITALS: BP 150/81
--- NOTE | 2025-02-28 16:24 | ED.GENMED ---
History of Present Illness
General
Chief Complaint: Head Injury
Time Seen by Provider: 02/28/25 15:43
History of Present Illness
History of Present Illness:
40-year-old female with history of bipolar disorder, functional neurologic syndrome, anxiety, migraines presenting to the emergency department with a migraine. Patient reports prior to arrival she was taking a nap on the couch in her neurologic
disorder causes her to twitch. She twitch during her migraine, fell off of the bed and struck the left side of her face. Migraine with left-sided head pain and left eye visual changes, which she notes is typical of her migraine pain. Denies focal
weakness or sensory deficits to her extremities. Denies any chest pain or difficulty breathing. Denies any recent fever or illness. She is not on any blood thinners. Denies additional acute medical complaints.
Past History
Past History
ED Past Medical History: Asthma, GERD, Hypothyroidism, Psychiatric (Anxiety, depression, bipolar), Other (Chronic back pain, celiac disease, IBS, PCOS, pneumonia, Cluster headaches, Colitis) and Other (Positive MISTY)
ED Past Surgical History: Cholecystectomy, Orthopedic (Right knee surgery) and Tonsilectomy
Social History
Tobacco: Non-smoker
Alcohol: None
Drug: None
Personal:
Living: with family
Employment: Employed
Family History
Family History: Other (Mother with coronary artery disease and breast cancer)
Phy Exam
Physical Exam
Physical Exam:
General: Well-appearing, no clinical signs of dehydration, nontoxic and in no acute distress
HEENT: protecting airway, pupils equal reactive
Head: Atraumatic
Neck: appears supple, no midline tenderness
CV: Normal heart rate, regular rhythm
Resp: No accessory muscle use, no increased work of breathing, lungs clear to auscultation bilaterally
Abd: No distention
Extremities: No deformities, no swelling
Neuro: alert, no focal neurologic deficit
: deferred
Rectal: deferred
Psych: Normal affect
Skin: Intact
Course
Orders/Labs/Results
Orders:
Orders
02/28/25 15:29
Electrocardiogram (*1) Urgent
Reason for Study: Syncope
02/28/25 15:30
EKG- Treatment ONCE
02/28/25 16:10
0.9% Sodium Chloride 1000 ml [Nss] 1,000 ml IV BOLUS
Dexamethasone Sod Phosphate [Decadron] 10 mg IV NOW STA
Diphenhydramine [Benadryl] 25 mg IV NOW STA
Ketorolac [Toradol] 15 mg IV NOW STA
Metoclopramide [Reglan] 10 mg IV NOW STA
02/28/25 19:00
0.9% Sodium Chloride 1000 ml [Nss] 1,000 ml IV BOLUS
Ketorolac [Toradol] 15 mg IV NOW STA
02/28/25 20:00
Dihydroergotamine Mesylate [Dhe-45] 1 mg IV ONCE ONE
02/28/25 20:59
Complete Blood Count/With Diff Urgent
Comprehensive Metabolic Panel Urgent
Vital Signs
Initial and Last Documented VS:
Initial Vital Signs
Temp Pulse Resp BP Pulse Ox
97.8 F 94 17 150/81 97
02/28/25 15:24 02/28/25 15:24 02/28/25 15:24 02/28/25 15:24 02/28/25 15:24
Last Documented Vital Signs
Temp Pulse Resp BP Pulse Ox
97.8 F 58 18 166/87 98
02/28/25 15:24 02/28/25 20:51 02/28/25 20:51 02/28/25 20:51 02/28/25 20:51
MDM/Problems Addressed
MDM/Problems Addressed:
40-year-old female with history of migraines, psychogenic seizures and syncope presenting for headache. Vital signs on arrival are significant for mild hypertension.
Patient is overall well-appearing, no acute distress or discomfort. Symptom presentation and physical exam appears most consistent with tension versus migrainous headache. No concern for infectious etiology, afebrile, no meningeal signs. No focal
neurologic deficits on exam or concern for acute central neurologic process. Blood pressure presently within normal limits, without concern for pseudotumor cerebri. No tenderness to the temporal arteries, without concern for temporal arteritis.
Does note that patient fell, however fall from couch with no signs of head trauma, no focal neurologic deficits. Do not feel patient requires any advanced imaging. Will administer migraine cocktail and reassess for improvement. Patient notes that
she typically has improvement with Decadron, Toradol, Reglan, Benadryl.
19:00 -patient reports that she still having a headache, however has somewhat improved and is now able to see out of her eye. She is requesting DHE which she has had in the past for headache. Will administer
21:00 -patient is feeling better, however reports that she still very symptomatic. She does not feel well enough to go home. Admitting for intractable migraine
*Pulse Oximetry
SaO2: 97
Oxygen Mode of Delivery: Room air
Patient hypoxic: no
*Critical Care Note
Total Time (30-74mins, 75-104mins- exclusive of procedures): Not Applicable
ED Attending Note
-
Portions of this chart may have been created with voice recognition software.� Occasional wrong word or��sound alike� substitutions may have occurred due to the inherent limitations of voice recognition software.
Discharge Plan
Departure
Prescriptions:
No Action
fluoxetine [Prozac] 40 MG capsule
80 mg PO HS
famotidine 20 MG tablet
20 mg PO HS
ferrous sulfate [FeroSul] 325 MG tablet
325 mg PO DAILY
lamotrigine 100 MG tablet
100 mg PO BID
cetirizine [Zyrtec] 10 mg Tablet
10 mg PO HS
sulfamethoxazole-trimethoprim 800-160 mg tablet
1 tab PO DAILY
magnesium oxide 400 mg (241.3 mg magnesium) tablet
400 mg PO TID
loratadine 10 mg tablet
10 mg PO DAILY
budesonide-formoterol [Symbicort] 160-4.5 mcg/actuation HFA aerosol inhaler
2 puff INHALATION BID
sucralfate [Carafate] 1 gram tablet
1 g PO TID PRN (Reason: Gastrointestinal Issue)
melatonin 3 mg Tablet
3 - 6 mg PO HS Qty: 0
budesonide-formoterol [Symbicort] 160-4.5 mcg/actuation HFA aerosol inhaler
2 puff INHALATION R Q4HPRN MDD 12 PUFF/24HRS PRN (Reason: SOB)
diphenhydramine HCl [Benadryl] 25 mg capsule
25 mg PO TID PRN (Reason: headache) Qty: 60 0RF
risperidone 1 mg tablet
2 mg PO BID
Saline Nasal Mist
1 dose intranasal BID
Rx Instructions:
USE IN NASAL RINSE WITH BUDESONIDE
fluticasone propionate 1 SPRAY spray,suspension
2 spray intranasal DAILY PRN (Reason: if nasal rinse unavailable)
ibuprofen 800 mg tablet
800 mg PO Q8H PRN (Reason: mild pain)
omeprazole 40 mg capsule,delayed release(DR/EC)
40 mg PO BID
buspirone 10 mg tablet
15 mg PO TID
folic acid 1 mg Tablet
1 mg PO HS
ergocalciferol (vitamin D2) 1,250 mcg (50,000 unit) capsule
1,250 mcg PO FR
prochlorperazine maleate 10 mg tablet
10 mg PO Q8H PRN (Reason: nausea/vomiting/headache)
Rx Instructions:
as needed every 8 hours nausea/headache
levothyroxine 150 mcg tablet
175 mcg PO DAILY@0500
Qulipta 60 mg Tablet
60 mg PO DAILY
hydroxyzine HCl 25 mg Tablet
25 mg PO .2PM AND 6PM
hydroxyzine HCl 10 mg Tablet
10 mg PO .10 AM AND 8 PM
clonazepam 0.5 mg Tablet
0.5 mg PO BID
Patient Comments:
lorazepam was d/c'd and was started on this
Rx Instructions:
8am and 4pm
meclizine 25 mg Tablet
25 mg PO Q8HPRN PRN (Reason: vertigo) Qty: 20 0RF
Referrals:
Barbara Murcia CRNP [Family Provider, General]
Interventions
Interventions:
*Risk Screen - Suicide Last Done: 02/28/25 15:26
*General Assessment Last Done: 02/28/25 15:26
*Neglect/Abuse Screening Last Done: 02/28/25 15:26
*ED COVID-19 Vaccine History Last Done: 02/28/25 15:26
ED- Neurological Assessment Last Done: 02/28/25 17:15
ED-Skin Assessment Last Done: 02/28/25 17:15
Discharge Date and Time
Print Language: SETSWANA
[2025-02-28] MEDS: BENADRYL 25 MG IV (17:06)
[2025-02-28] MEDS: TORADOL 15 MG IV (17:06)
[2025-02-28] MEDS: DECADRON 10 MG IV (17:06)
[2025-02-28] MEDS: REGLAN 10 MG IV (17:06)
[2025-02-28] MEDS: NSS 1000 IV ×3 (17:08→22:49)
[2025-02-28 18:53] VITALS: BP 153/97
[2025-02-28] MEDS: DHE-45 1 MG IV (19:51)
[2025-02-28 20:22] VITALS: BP 167/105
[2025-02-28 20:51] VITALS: BP 166/87
[2025-02-28 21:14] LABS: Hematocrit 37.7 % (37.0-47.0); Hemoglobin 12.7 g/dL (12.0-16.0); Mean Corp Hgb Conc. 33.7 g/dL (33.0-37.0); Mean Corpuscular Volume 88.7 fL (81.0-99.0); Nucleated Red Blood Cells % 0 %; Platelet Count 227 10^3/uL (130-400); Red Cell Dist. Width 11.6 % (11.5-14.5)
[2025-02-28 21:36] LABS: Blood Urea Nitrogen 9 mg/dl (7-17); Calcium 9.3 mg/dl (8.4-10.2); Carbon Dioxide 22 mmol/L (22-30); Chloride 106 mmol/L (98-107); Glucose 128 mg/dl (70-99); Sodium 133 mmol/L (135-145); eGFR > 60.00
--- NOTE | 2025-02-28 21:48 | HPS.HSE ---
Addendum entered and electronically signed by Robin Perez MD 02/28/25 21:56:
Continue Qulipta.
Original Note:
Family Physician
-
Family Physician: LEN Mcghee
Chief Complaint
-
migraine
History of Present Illness
40-year-old female past medical history of bipolar disorder, PNES/functional neurological disorder, migraines, common variable immunodeficiency, hypothyroidism, celiac disease, lactose intolerance anxiety, migraines, GERD, IBS, asthma, polycystic
ovarian syndrome, obesity presenting to emergency room with migraine. Patient states that she was taking a nap on the couch. She has tics due to her functional neurological disorder. The twitches caused her to fall off the bed and hit her head on
the left side of her face. This triggered a migraine. She has severe left-sided headache with pain behind the eye with initial vision loss. She has nausea and vomiting. She has vertigo. She has sensitivity to light. These are symptoms typical of
her migraines. She denies any slurred speech. Denies any focal weakness or numbness or tingling elsewhere on the body. Denies chest pain or shortness of breath.
She continues to have severe blurry vision of the left eye.
Denies alcohol, smoking or marijuana.
Medical History
Past Medical History
Past Medical History: Reports Other (bipolar disorder, PNES/functional neurological disorder, migraines, common variable immunodeficiency, hypothyroidism, celiac disease, lactose intolerance anxiety, migraines, GERD, IBS, asthma, polycystic ovarian
syndrome, obesity)
Past Surgical History: Reports None
Social History
Tobacco: Non-smoker
Alcohol: None
Drug: None
Family History
Family History: Not pertinent
Allergies / Home Medications
Allergies reflects when Allergies were last updated in [facility] [employer].
Home Medications with original date entered in [facility] [employer]
Allergy/Medication List:
Allergies
Allergy/AdvReac Type Severity Reaction Status Date / Time
Milk Containing Products Allergy Unknown Unknown Verified 02/28/25 15:26
(Dairy)
gluten Allergy stomach Verified 02/28/25 15:26
issues
silver (From Tegaderm AG Allergy Unknown Verified 02/28/25 15:26
Mesh)
sumatriptan Allergy locked jaw Verified 02/28/25 15:26
Home Medications
fluoxetine 40 mg capsule (Prozac) 80 mg PO HS Depression 07/30/17
famotidine 20 mg tablet 20 mg PO HS acid reflux 04/10/21
ferrous sulfate 325 mg (65 mg iron) tablet (FeroSul) 325 mg PO DAILY Supplement 04/22/21
lamotrigine 100 mg tablet 100 mg PO BID Neurological Condition 04/22/21
budesonide-formoterol HFA 160 mcg-4.5 mcg/actuation aerosol inhaler (Symbicort) 2 puff inhalation BID Lung/Breathing Issues 03/05/23
cetirizine 10 mg tablet (Zyrtec) 10 mg PO HS Allergies 03/05/23
loratadine 10 mg tablet 10 mg PO DAILY Allergies 03/05/23
magnesium oxide 400 mg (241.3 mg magnesium) tablet 400 mg PO TID supplement 03/05/23
melatonin 3 mg tablet 3 - 6 mg PO HS Sleep ##0 03/05/23
sucralfate 1 gram tablet (Carafate) 1 g PO TID PRN Gastrointestinal Issue 03/05/23
sulfamethoxazole 800 mg-trimethoprim 160 mg tablet 1 tab PO DAILY Infection 03/05/23
budesonide-formoterol HFA 160 mcg-4.5 mcg/actuation aerosol inhaler (Symbicort) 2 puff inhalation R Q4HPRN PRN SOB 03/06/23
diphenhydramine HCl 25 mg capsule (Benadryl) 25 mg PO TID PRN headache #60 caps 03/12/23
Saline Nasal Mist 1 dose intranasal BID Congestion 06/04/23
fluticasone propionate 50 mcg/actuation nasal spray,suspension 2 spray intranasal DAILY PRN if nasal rinse unavailable 06/04/23
risperidone 1 mg tablet 2 mg PO BID Mental Health/Anxiety 06/04/23
buspirone 10 mg tablet 15 mg PO TID Mental Health/Anxiety 08/02/23
ergocalciferol (vitamin D2) 1,250 mcg (50,000 unit) capsule 1,250 mcg PO FR Supplement 08/02/23
folic acid 1 mg tablet 1 mg PO HS Supplement 08/02/23
ibuprofen 800 mg tablet 800 mg PO Q8H PRN mild pain 08/02/23
omeprazole 40 mg capsule,delayed release 40 mg PO BID Gastrointestinal Issue 08/02/23
prochlorperazine maleate 10 mg tablet 10 mg PO Q8H PRN nausea/vomiting/headache 08/02/23
atogepant 60 mg tablet (Qulipta) 60 mg PO DAILY migraine 11/10/23
levothyroxine 150 mcg tablet 175 mcg PO DAILY@0500 Thyroid 11/10/23
hydroxyzine HCl 10 mg tablet 10 mg PO .10 AM AND 8 PM 11/04/24
hydroxyzine HCl 25 mg tablet 25 mg PO .2PM AND 6PM 11/04/24
clonazepam 0.5 mg tablet 0.5 mg PO BID Mental Health/Anxiety 02/08/25
meclizine 25 mg tablet 25 mg PO Q8HPRN PRN vertigo #20 tabs 02/09/25
Review of Systems
-
History Source: Patient
A 12 point ROS was completed and negative except as noted: Yes
Constitutional: Reports No Symptoms
EENT: Reports No Symptoms
Respiratory: Reports No Symptoms
Cardiac: Reports No Symptoms
Abdomen/GI: Reports No Symptoms
: Reports No Symptoms
Musculoskeletal: Reports No Symptoms
Skin: Reports No Symptoms
Neurological: Reports See HPI
Endocrine: Reports No Symptoms
Hematologic/Lymphatic: Reports No Symptoms
Psych: Reports No Symptoms
Physical Exam
Vital Signs
Vital Signs
Temp Pulse Resp BP Pulse Ox
97.8 F 58 18 166/87 98
02/28/25 15:24 02/28/25 20:51 02/28/25 20:51 02/28/25 20:51 02/28/25 20:51
Physical Exam
General: Well Developed, Well Nourished and No Apparent Distress
HEENT: NormoCephalic, Moist mucous membranes and Atraumatic
Respiratory: Clear
Cardiac: S1/S2 and Regular Rhythm; No Murmur or Rub
GI: Soft, Non Tender, Non Distended and Normal Bowel Sounds; No Organomegaly
Rectal: Deferred by Provider
Musculoskeletal: No Clubbing, No Cyanosis and No Edema
Skin: No Rash
Neuro: Nonfocal/grossly intact
Laboratory Results
-
02/28/25 21:08
02/28/25 21:08
Laboratory Results
Total Bilirubin Cancelled 02/28/25 21:08
AST Cancelled 02/28/25 21:08
ALT Cancelled 02/28/25 21:08
Alkaline Phosphatase Cancelled 02/28/25 21:08
Data Reviewed
-
Lab Data: Labs Reviewed by me
Old Records: Reviewed
Impression/Plan
-
IMPRESSION:
PLAN:
#Migraine secondary to head injury
- Given IV fluids, Reglan, ketorolac, Benadryl, dexamethasone and dihydroergotamine with some improvement
-Continue IV fluids, Reglan, ketorolac, Benadryl
-Check CT head
- Neurology consulted
Bipolar disorder
- Continue Risperdal, Lamictal, hydroxyzine
Psychogenic nonepileptic seizures/Functional neurological disorder
Chronic vertigo
- Continue meclizine
Common variable immunodeficiency
Hypothyroidism
- Continue levothyroxine
Celiac disease/lactose intolerant
Anxiety/depression
- Continue buspirone, clonazepam, fluoxetine
GERD
- Continue famotidine, sucralfate, omeprazole
IBS
Asthma
- Continue Symbicort
Polycystic ovarian syndrome
Obesity
Full code
DVT prophylaxis�SCDs
Regular diet
[2025-02-28 22:22] VITALS: BMI 42.0
[2025-02-28 22:39] VITALS: BP 147/83; BMI 41.9
[2025-02-28] MEDS: FOLVITE 1 MG PO (22:56)
[2025-02-28] MEDS: PEPCID 20 MG PO (22:57)
[2025-02-28] MEDS: MAGNESIUM OXIDE 400 MG PO (22:57)
[2025-02-28] MEDS: ZYRTEC 10 MG PO (22:58)
[2025-02-28] MEDS: BUSPAR 15 MG PO (22:58)
--- NOTE | 2025-03-01 00:45 | PTCARENOTE ---
Patient received from ED via stretcher and walked with assist to bathroom and then bed. Gait is slow but steady. Patient was oriented to room and surroundings. Reminded to call for assist due to dizziness and passing out episodes. IVF per order.
See nursing assessment for physical findings
[2025-03-01 03:14] VITALS: BP 131/75
[2025-03-01] MEDS: SYNTHROID 175 MCG PO (06:15)
[2025-03-01 07:10] LABS: Hematocrit 36.7 % (37.0-47.0); Hemoglobin 12.3 g/dL (12.0-16.0); Mean Corp Hgb Conc. 33.5 g/dL (33.0-37.0); Mean Corpuscular Volume 88.4 fL (81.0-99.0); Nucleated Red Blood Cells % 0 %; Platelet Count 248 10^3/uL (130-400); Red Cell Dist. Width 11.6 % (11.5-14.5)
[2025-03-01 07:36] VITALS: BP 141/76
[2025-03-01 07:50] LABS: ALT (SGPT) 17 U/L (0-35); AST (SGOT) 16 U/L (14-36); Albumin 3.8 g/dl (3.5-5.0); Alkaline Phosphatase 81 U/L (38-126); Blood Urea Nitrogen 10 mg/dl (7-17); Calcium 9.3 mg/dl (8.4-10.2); Carbon Dioxide 22 mmol/L (22-30); Chloride 110 mmol/L (98-107); Estimated Creatinine Clearance 114 ml/min; Glucose 106 mg/dl (70-99); Potassium 4.8 mmol/L (3.5-5.1); Sodium 137 mmol/L (135-145); Total Protein 6.2 g/dl (6.3-8.2); eGFR > 60.00
[2025-03-01] MEDS: SYMBICORT 160/4.5 MCG INHALER 2 PUFF INH (08:03)
[2025-03-01] MEDS: CLARITIN 10 MG PO (08:44)
[2025-03-01] MEDS: PROTONIX 40 MG PO (08:44)
[2025-03-01] MEDS: LAMICTAL 100 MG PO (08:44)
[2025-03-01] MEDS: BUSPAR 15 MG PO (08:44)
[2025-03-01] MEDS: MAGNESIUM OXIDE 400 MG PO (08:44)
[2025-03-01] MEDS: FEOSOL 325 MG PO (08:45)
[2025-03-01] MEDS: RISPERDAL 2 MG PO (08:45)
[2025-03-01] MEDS: KLONOPIN 0.5 MG PO (08:45)
[2025-03-01] MEDS: NSS 1000 IV (09:08)
--- NOTE | 2025-03-01 09:21 | W.PN.HOSP.TC ---
Today's Communication/Plan
-
Pain control. Discharge planning
Assessment / Plan
Assessment / Plan
Physical exam:
General: Well Developed, Well Nourished and No Apparent Distress
HEENT: Normocephalic, Atraumatic and Moist Mucous Membranes
Respiratory: Clear to Auscultation; Negative Wheezes, Rales or Rhonchi
Cardiac: Regular Rhythm and S1/S2
GI: Soft, Nontender and Nondistended
Musculoskeletal: No Clubbing, No Cyanosis and No Edema
Neuro: Awake, Alert and Oriented
Psych: Calm
A/P:
#Migraine secondary to head injury
Patient headache came back this morning and requested neurology evaluation and they have prescribed DHE. It seems to be improvement and if that continues to be the case she wants to go home today.
Neurology consult appreciated
DHE given today again
Stop IV fluids
Hold rest of the medications
Bipolar disorder
- Continue Risperdal, Lamictal, hydroxyzine
Psychogenic nonepileptic seizures/Functional neurological disorder
Chronic vertigo
- Continue meclizine
Common variable immunodeficiency
Hypothyroidism
- Continue levothyroxine
Celiac disease/lactose intolerant
Anxiety/depression
- Continue buspirone, clonazepam, fluoxetine
GERD
- Continue famotidine, sucralfate, omeprazole
IBS
Asthma
- Continue Symbicort
Polycystic ovarian syndrome
Obesity
Full code
DVT prophylaxis�SCDs
Anticipated Discharge: Today
Subjective/Interval History
-
Date of Service: March 01, 2025
Patient headache came back this morning and requested neurology evaluation and they have prescribed DHE. It seems to be improvement and if that continues to be the case she wants to go home today.
Objective Data
-
Labs:
Laboratory Results
02/28/25 03/01/25
21:08 06:50
WBC 5.9
Hgb 12.3
Hct 36.7 L
Plt Count 248
Sodium 133 L 137
Potassium 4.8
Chloride 106 110 H
Carbon Dioxide 22 22
BUN 9 10
Creatinine 0.9 0.9
Glucose 128 H 106 H
Calcium 9.3 9.3
Total Bilirubin Cancelled 0.4
AST Cancelled 16
ALT Cancelled 17
Alkaline Phosphatase Cancelled 81
Vital Signs:
Vital Signs
Temp Pulse Resp BP Pulse Ox
98.0 F 73 18 141/76 97
03/01/25 07:36 03/01/25 08:06 03/01/25 08:06 03/01/25 07:36 03/01/25 08:06
I&O
02/28/25 03/01/25 03/02/25
06:59 06:59 06:59
Intake Total 700 / 700
Balance 700 / 700
--- NOTE | 2025-03-01 09:38 | CON.NEURO ---
Addendum entered and electronically signed by Tahir Irving MD 03/01/25 11:47:
Studies reviewed.
I have personally examined the patient. I reviewed and agree with the PRODUCT CRAFTSMAN's Note.
My addenda:
Awake, alert, interactive. No acute distress.
Speech intact.
Follows 2-step requests w/o difficulty. No tremor.
Extra-ocular movements grossly intact.
Facial movements full and symmetric. Hearing intact to normal conversational volume.
Normal UE movements bilaterally.
Neck: full ROM.
Chest: no dyspnea
Heart: no JVD
Ext: (-) Clubbing, (-) Cyanosis, (-) Edema
IMPRESSIONS/RECOMMENDATIONS:
Abrupt onset of recurrent migraine without aura in a patient with longstanding migraine as well as functional neurological disorder
Provide dihydroergotamine
Continue patient's usual Atogepant
Eventual continuation of botulinum toxin injections for headache prevention
Patient will require continued cognitive behavioral therapy as outpatient
D/W patient
Will continue to follow as needed.
Original Note:
Neuro Assessment/Plan
Assessment
40-year-old female with history of bipolar disorder, functional neurologic disorder, anxiety, migraines presenting to [facility] on 02/28/2025 with left sided head pain and visual loss consistent with her typical migraine.
Head CT: No acute intracranial abnormality or interval change.
Plan
Impression: abrupt onset of left-sided head pain with initial vision loss in a patient with a history of migraine with aura
-continue DHE for migraine control
-continue Qulipta 60 mg daily as preventative for migraines
-follow up with usual neurologist Dr. Vo outpatient for further migraine management
-continue to follow up with psychiatry and psychology outpatient for her functional neurological disorder and anxiety
All questions encouraged and answered, plan of care discussed with Dr. Irving, Dr. Fabian and patient
Consultation
Order
Date of Consultation: 03/01/25
Requesting Provider: hospitalist/Dr. Jason Fabian
Reason for Consult: migraine
Subjective/Objective
Subjective Data
Date of Service: March 01, 2025
Has seen our neurology service previously multiple times. Taken from previous note by Dr. Irving in 11/11/2023:
'This is a 38-year-old female who has presented to the hospital on 11/10/23 with report of intractable migraine and a reaction to IM sumatriptan. Patient is known to our inpatient Neurology service and is followed by Dr. Kingsley as an outpatient for
migraine.
From previous note by Dr. Kapoor on 08/03/23:
''38-year-old female with past medical history of migraine and cluster headaches who actively follows with Dr. Kingsley in our clinic, CVID, PCOS, bipolar disorder, celiac disease, hypothyroidism, iron deficiency anemia and obesity who presented
yesterday evening for headache. She stated that she woke up yesterday morning early and had a severe migraine with photophobia, slurred speech and loss of vision in her left eye. She took sumatriptan at 7 AM and 11 AM. She took Compazine at 7 AM
and Nurtec at 1 PM. Vision loss and slurred speech are consistent with her prior migraine. She says that all of the characteristics of her current migraine are consistent with her prior migraines. No focal weakness, numbness, palpitations, neck
pain, or fever/stiffness with these events. This morning she reports that her speech has returned to normal. She still having vision issues in the left eye. When I first came into the room she said her headache improved to an 8 out of 10 but
after talking to me it went up to a 9 out of 10. We continued her home meds including verapamil. She has received IV Toradol, Reglan, Benadryl and Decadron. She also received an infusion of magnesium.
She currently gets Botox injections for headache and is on Emgality as an outpatient as well. She was trying to switch to Qulipta from Emgality as the latter had been causing constipation. She reports that Qulipta was approved by her insurance but
the pharmacy has not had this in stock so she has continued Emgality in the meantime. Her last Emgality injection was 2 weeks ago.
She was admitted in mid May with worsening headaches due to COVID. She was discharged home on the following regimen, taken from Dr. Kingsley's note:
'-NSAID like Ibuprofen 400-600 mg TID or Naproxen for about 5 days following discharge.
-Tylenol with 10 mg Compazine TID for 5 days followign DC
-Okay to use Sumatriptan Saturday (limiting to 2 doses a week to prevent medication overuse headache)
-PRN nurtec at home 2 times a week, has a script for this already
-7 days total Prednisone'
She was also seen by Dr. Irving here in February.
At that time she received:
'Single dose of Dihydroergotamine 1 mg IV, Repeat Prochlorperazine 10 mg IV x 1, Repeat Diphendydramine 25 mg IV x 1, Caffeine 95 mg PO x 1, Iron by IV x 1''
Her previous headache workup has included:
-CT Head 03/10/23: No acute intracranial abnormality.
-MRI Brain 11/22/20: No acute intracranial abnormality noted.
-MRI Cervical Spine 11/23/20: No abnormal cord signal or enhancement.
-MRI Thoracic Spine 11/23/20: No abnormal cord signal or enhancement.
-MRI Lumbar Spine 11/24/20: No abnormal cord signal or enhancement.
-Lumbar Puncture 11/25/20: WBC 1, RBC 0, glucose 94.3, protein 68.7, negative for oligoclonal bands.
Patient reports that yesterday (11/10/23) she developed a severe headache and she took her IM sumatriptan for relief as she typically does. She has been taking IM sumatriptan PRN for two years and reports that it usually gives her a momentary head
guadalupe sensation. After taking it yesterday afternoon, she reports that she developed severe jaw, cheek, neck, and throat pain and her tongue became numb. She called the on-call Neurologist who referred her to the ER for evaluation due to concern for
allergic reaction. In the ER she was given Toradol, Compazine, Benadryl, Decadron, Dilaudid, Reglan, Ativan, and valproic acid. Today (11/11/23), her headache is above her left eye and she rates it a 7/10. She reports photophobia and nausea but
denies phonophobia and vomiting. She has tried other triptans in the past and they were ineffective. During he previous hospitalization in July 2023 she reports the she received DHE as an extremely fast IV push and developed chest discomfort and
pruritus, so it was added to her allergy list. She reports that since then, she has been hospitalized at [facility] for 8 days for headache and received DHE 16 times there with no adverse reaction. Currently, she denies any dizziness, vision changes,
numbness, weakness, chest pain, palpitations, and shortness of breath.'
She currently follows with her neurologist Dr. Vo and was last seen on 02/16/2025. Adapt[address]. Vo note:
'The patient presents with severe migraines (on botox injections, due today), a recent concussion (09/2024), and functional neurologic disorder with mixed symptoms (syncope with collapse, frequent daytime sleep attacks, episodes of tremor with
weakness and extremity heaviness). Migraines She continues to average 5-10 migraine days per month. She continues on Qulipta daily for migraine prevention as well as Botox injections every 3 months. Her migraines are complex and are frequently
accompanied by vision loss. Some migraines will respond to Reyvow. However she will have to complex migraines per month. She has been to the Emergency 2 times over the past 3 months due to prolonged vision loss which only returned after a treatment
of IV Toradol, Benadryl, Reglan with SoluMedrol. 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
These episodes are often triggered by fatigue, overthinking, or headaches. Despite an improvement in her migraines, there has been no change in her drop attacks. She occasionally experiences slurred speech and a dream-like state. She reports no new
triggers for these episodes. Additionally, she mentions that her entire body shakes during sleep, causing her to fall out of bed. She has been evaluated by sleep specialist at [facility] on 12/29/2024. She has also completed a sleep MSLT
study which was normal aside from hypersomnolence. She continues to follow with Psychiatry for management of bipolar disorder, and was switched from Ativan 4 times a day to clonazepam 2 times a day. She has not yet noticed any reduction in her
episodes with this medication change. She had an upper extremity EMG which was normal.'
She presented to [facility] in 08/2024, 12/2024, 01/2025 and again on 02/28/2025 for migraine. Patient reports prior to arrival she was taking a nap on her couch and started to twitch. She fell off of the bed and struck the left side of her face. She now
has a migraine with left-sided head pain and left eye visual changes, which she notes is typical of her migraine pain. 7/10 on pain scale. Denies focal weakness or sensory deficits to her extremities. Denies any chest pain or difficulty breathing.
Denies any recent fever or illness. She is not on any blood thinners. In ED, head CT with no acute intracranial abnormality or interval change.
Objective Data
Vital Signs
Temp Pulse Resp BP Pulse Ox
98.0 F 73 18 141/76 97
03/01/25 07:36 03/01/25 08:06 03/01/25 08:06 03/01/25 07:36 03/01/25 08:06
Lab Results
03/01/25 06:50
03/01/25 06:50
Sodium 137 mmol/L (135-145) 03/01/25 06:50
Potassium 4.8 mmol/L (3.5-5.1) 03/01/25 06:50
BUN 10 mg/dl (7-17) 03/01/25 06:50
Glucose 106 mg/dl (70-99) H 03/01/25 06:50
Calcium 9.3 mg/dl (8.4-10.2) 03/01/25 06:50
Patient Allergies
Milk Containing Products (Dairy) Allergy (Unknown, Verified 02/28/25 15:26)
Unknown
gluten Allergy (Verified 02/28/25 15:26)
stomach issues
silver (From Tegaderm AG Mesh) Allergy (Verified 02/28/25 15:26)
Unknown
sumatriptan Allergy (Verified 02/28/25 15:)
locked jaw
Physical Exam
-
General: No Apparent Distress
Eyes: No Ptosis and PERRLA
HEENT: Normocephalic and Atraumatic
Neck: Full Range of Motion
Respiratory: No Dyspnea
Cardiac: No JVD
GI: Non-distended
Skin: Unremarkable
Extremities: No Clubbing, No Cyanosis and No Edema
Psych: Anxious
Extended Neurological Exam
Mood & Affect: Anxious
Attention Span & Concentration: Awake, Alert, Interactive and No Difficulty with 2 Step Request
Memory: Unremarkable and Able to Recall
Tremor: Hand Tremor Absent and Head Tremor Absent
Involuntary Movement: None
Speech: Quality Unremarkable, Quantity Unremarkable and Rate of Production Unremarkable
Cranial Nerve II: Left Eye: Pupillary Reactivity Unremarkable, Pupillary Size Unremarkable and Visual Barrios Reduced (can see finger wiggling in all quadrants, unable to differentiate finger count in all quadrants)
Cranial Nerve II: Right Eye: Pupillary Reactivity Unremarkable, Pupillary Size Unremarkable and Visual Barrios Intact
Cranial Nerves III, IV, : Extraocular Movement: Extraocular Movement Full in all Directions
Cranial Nerve VII: Facial Symmetry: Normal Facial Symmetry
Cranial Nerve VIII: Hearing: Unremarkable Hearing to Normal Conversational Volume
Cranial Nerves IX, X: Palate Movement: Palate Elevation Symmetric
Cranial Nerve XI: Shoulder Shrug: Unremarkable
Cranial Nerve XII: Tongue Protusion: Midline
Muscle Strength, Overall: Full Throughout
Muscle Bulk & Tone: Bulk Unremarkable and Tone Unremarkable
Pronator Drift: No Drift in Upper Extremities and No Drift in Lower Extremities
Deep Tendon Reflexes: Unremarkable Throughout
Cold Sensation: Unremarkable
Vibration Sensation: Unremarkable
Touch Sensation: Double Simultaneous Stimulation Unremarkable
Coordination: [id number] Testing Unremarkable
Data Reviewed
-
CT Head: Report Reviewed and Image Reviewed
Medical Test Reports: Report Reviewed
Labs: Report Reviewed
EMG: Report Reviewed
Reviewed with: Physician, Nurse and Patient
Old Records: Summarized
Medications
-
Active Medications
Generic Name Dose Route Start Last Admin
Trade Name Freq PRN Reason Stop Dose Admin
Budesonide/Formoterol Fumarate 2 puff 02/28/25 22:20
Symbicort Inhaler 160/4.5 INH 03/28/25 22:19
R Q4HPRN PRN
SOB
Protocol
Budesonide/Formoterol Fumarate 2 puff 03/01/25 08:00 03/01/25 08:03
Symbicort Inhaler 160/4.5 INH 03/29/25 07:59 2 puff
R BID VENKATA Administration
Protocol
Buspirone HCl 15 mg 02/28/25 22:33 03/01/25 08:44
Buspirone 5 Mg Tablet PO 03/28/25 22:32 15 mg
TID VENKATA Administration
Cetirizine HCl 10 mg 02/28/25 22:20 02/28/25 22:58
Cetirizine Hcl 10 Mg Tablet PO 03/28/25 22:19 10 mg
HS VENKATA Administration
Clonazepam 0.5 mg 03/01/25 08:00 03/01/25 08:45
Clonazepam 0.5 Mg Tablet PO 03/29/25 07:59 0.5 mg
BID VENKATA Administration
Diphenhydramine HCl 25 mg 02/28/25 22:20
Diphenhydramine 50 Mg/Ml 1 Ml Vial IV 03/28/25 22:19
Q4HPRN PRN
migraine
Ergocalciferol 50,000 units 03/05/25 08:00
Ergocalciferol (Vitamin D-2) 95727 Units Capsule PO 04/02/25 07:59
FR@0800 VENKATA
Famotidine 20 mg 02/28/25 22:20 02/28/25 22:57
Famotidine 20 Mg Tablet PO 03/28/25 22:19 20 mg
HS VENKATA Administration
Ferrous Sulfate 325 mg 03/01/25 08:00 03/01/25 08:45
Ferrous Sulfate 325 Mg Tablet PO 03/29/25 07:59 325 mg
DAILY VENKATA Administration
Fluoxetine HCl 80 mg 03/01/25 22:00
Fluoxetine 20 Mg Capsule PO 03/29/25 21:59
HS VENKATA
Folic Acid 1 mg 02/28/25 22:20 02/28/25 22:56
Folic Acid 1 Mg Tablet PO 03/28/25 22:19 1 mg
HS VENKATA Administration
Hydroxyzine HCl 25 mg 03/01/25 14:00
Hydroxyzine 25 Mg Tablet PO 03/29/25 13:59
BID@1400,1800 VENKATA
Hydroxyzine HCl 10 mg 03/01/25 10:00
Hydroxyzine 10 Mg Tablet PO 03/29/25 09:59
BID@1000,2000 VENKATA
Sodium Chloride 1,000 mls @ 100 mls/hr 02/28/25 22:20 03/01/25 09:08
Nss IV 1,000 mls
.Q10H VENKATA Administration
Ketorolac Tromethamine 30 mg 03/01/25 01:00
Ketorolac 30 Mg/Ml Injection IV 03/06/25 00:59
Q6HPRN PRN
migraine
Lamotrigine 100 mg 03/01/25 08:00 03/01/25 08:44
Lamotrigine 100 Mg Tablet PO 03/29/25 07:59 100 mg
BID VENKATA Administration
Levothyroxine Sodium 175 mcg 03/01/25 06:00 03/01/25 06:15
Levothyroxine 175 Mcg Tablet PO 03/29/25 05:59 175 mcg
DAILY @ 0600 VENKATA Administration
Loratadine 10 mg 03/01/25 08:00 03/01/25 08:44
Loratadine 10 Mg Tablet PO 03/29/25 07:59 10 mg
DAILY VENKATA Administration
Magnesium Oxide 400 mg 02/28/25 22:20 03/01/25 08:44
Magnesium Oxide 400 Mg Tablet PO 03/28/25 22:19 400 mg
TID VENKATA Administration
Meclizine HCl 25 mg 02/28/25 22:20
Meclizine 25 Mg Tablet PO 03/28/25 22:19
Q8HPRN PRN
vertigo
Melatonin 5 mg 03/01/25 22:00
Melatonin 5 Mg Tablet PO 03/29/25 21:59
HS VENKATA
Metoclopramide HCl 10 mg 02/28/25 22:20
Metoclopramide 10 Mg/2 Ml Vial IV 03/28/25 22:19
Q6HPRN PRN
nausea
Non-Formulary Medication 60 mg 03/01/25 08:00
Atogepant [Qulipta] PO 03/29/25 07:59
DAILY VENKATA
Pantoprazole Sodium 40 mg 03/01/25 08:00 03/01/25 08:44
Pantoprazole 40 Mg Delayed Release Tablet PO 03/29/25 07:59 40 mg
BID VENKATA Administration
Risperidone 2 mg 03/01/25 08:00 03/01/25 08:45
Risperidone 1 Mg Tablet PO 03/29/25 07:59 2 mg
BID VENKATA Administration
Sodium Chloride 0 flush 02/28/25 23:00
Sodium Chloride 0.9% (Flush) Syringe IV 03/28/25 22:59
PER PROTOCOL VENKATA
Sucralfate 1 gram 02/28/25 22:20
Sucralfate 1 Gram Tablet PO 03/28/25 22:19
TID PRN
Gastrointestinal Issue
Home Medications
�Medication �Instructions �Recorded
fluoxetine 40 mg capsule (Prozac) 80 mg PO HS Depression 07/30/17
famotidine 20 mg tablet 20 mg PO HS acid reflux 04/10/21
ferrous sulfate 325 mg (65 mg 325 mg PO DAILY Supplement 04/22/21
iron) tablet (FeroSul)
lamotrigine 100 mg tablet 100 mg PO BID Neurological 04/22/21
Condition
budesonide-formoterol HFA 160 2 puff inhalation BID 03/05/23
mcg-4.5 mcg/actuation aerosol Lung/Breathing Issues
inhaler (Symbicort)
cetirizine 10 mg tablet (Zyrtec) 10 mg PO HS Allergies 03/05/23
loratadine 10 mg tablet 10 mg PO DAILY Allergies 03/05/23
magnesium oxide 400 mg (241.3 mg 400 mg PO TID supplement 03/05/23
magnesium) tablet
melatonin 3 mg tablet 3 - 6 mg PO HS Sleep ##0 03/05/23
sucralfate 1 gram tablet (Carafate) 1 g PO TID PRN Gastrointestinal 03/05/23
Issue
sulfamethoxazole 800 1 tab PO DAILY Infection 03/05/23
mg-trimethoprim 160 mg tablet
budesonide-formoterol HFA 160 2 puff inhalation R Q4HPRN PRN SOB 03/06/23
mcg-4.5 mcg/actuation aerosol
inhaler (Symbicort)
diphenhydramine HCl 25 mg capsule 25 mg PO TID PRN headache #60 caps 03/12/23
(Benadryl)
Saline Nasal Mist 1 dose intranasal BID Congestion 06/04/23
fluticasone propionate 50 2 spray intranasal DAILY PRN if 06/04/23
mcg/actuation nasal nasal rinse unavailable
spray,suspension
risperidone 1 mg tablet 2 mg PO BID Mental Health/Anxiety 06/04/23
buspirone 10 mg tablet 15 mg PO TID Mental Health/Anxiety 08/02/23
ergocalciferol (vitamin D2) 1,250 1,250 mcg PO FR Supplement 08/02/23
mcg (50,000 unit) capsule
folic acid 1 mg tablet 1 mg PO HS Supplement 08/02/23
ibuprofen 800 mg tablet 800 mg PO Q8H PRN mild pain 08/02/23
omeprazole 40 mg capsule,delayed 40 mg PO BID Gastrointestinal Issue 08/02/23
release
prochlorperazine maleate 10 mg 10 mg PO Q8H PRN 08/02/23
tablet nausea/vomiting/headache
atogepant 60 mg tablet (Qulipta) 60 mg PO DAILY migraine 11/10/23
levothyroxine 150 mcg tablet 175 mcg PO DAILY@0500 Thyroid 11/10/23
hydroxyzine HCl 10 mg tablet 10 mg PO .10 AM AND 8 PM 11/04/24
hydroxyzine HCl 25 mg tablet 25 mg PO .2PM AND 6PM 11/04/24
clonazepam 0.5 mg tablet 0.5 mg PO BID Mental Health/Anxiety 02/08/25
meclizine 25 mg tablet 25 mg PO Q8HPRN PRN vertigo #20 02/09/25
tabs
Past History
Past History
ED Past Medical History: Asthma, GERD, Hypothyroidism, Psychiatric (Anxiety, depression, bipolar), Other (Chronic back pain, celiac disease, IBS, PCOS, pneumonia, Cluster headaches, Colitis) and Other (Positive MISTY)
ED Past Surgical History: Cholecystectomy, Orthopedic (Right knee surgery) and Tonsilectomy
Family/Social History
Tobacco: Non-smoker
Alcohol: None
Drug: None
Personal:
Living: with family
Employment: Employed
Family History: Other (Mother with coronary artery disease and breast cancer)
--- NOTE | 2025-03-01 10:08 | CM ---
Initial Assessment completed GWYN Sanders.
Patient lives with her Fiance in a 2 story home with with 1 step to enter and 14 steps inside with bathroom on the 2nd floor. No DME or other devices. Rula had [facility] servies for PT in the past, no Acute or SNF Rehab. No insecurities to note.
PCP: Dr. Barbara Murcia
Pharmacy: [facility]/ [facility]
Patient is currently employed and has transportation home when ready for discharge.
PLAN: Likely home with no needs or VN services.
[2025-03-01] MEDS: DHE-45 1 MG IV (10:43)
[2025-03-01] MEDS: ATARAX 10 MG PO (10:52)
[2025-03-01 11:05] VITALS: BP 140/82
--- NOTE | 2025-03-01 12:54 | W.DCSUMMARY ---
Discharge Summary
Discharge Data
Date of Admission: 02/28/25
Date of Discharge: 03/01/25
Total time spent discharging patient (in min): 35
-
Pending Results: No
Hospital Course
Patient 40 years old female history of migraine, cluster headaches, functional neurological disorders, among other multiple medical problems, came into the hospital ED headache. Patient was given multiple rounds of pain medications and initially
headache improved but then it rebounded. We asked neurology to see her. Neurology used DHE and headache responded well. CT scan of the head unremarkable. Patient felt well and was ready for discharge after headache improved. Patient improved
sooner than anticipated. We recommended to follow-up with primary care physician and outpatient neurologist. No other events were noticed. Patient will be discharged in stable condition today.
Discharge duration: 35 minutes
Discharge Plan
-
Patient Disposition: Home (Routine Discharge)
Discharge Diagnosis/Procedures: Migraine headache.
Diet: Regular
Activity: As tolerated
Blood Work: Please PCP to order CBC, BMP within 1 week
Referrals:
Barbara Murcia CRNP [Family Provider, General] - in less than 1 week
Prescriptions:
Continued
fluoxetine [Prozac] 40 MG capsule
80 mg PO HS
famotidine 20 MG tablet
20 mg PO HS
ferrous sulfate [FeroSul] 325 MG tablet
325 mg PO DAILY
lamotrigine 100 MG tablet
100 mg PO BID
cetirizine [Zyrtec] 10 mg Tablet
10 mg PO HS
sulfamethoxazole-trimethoprim 800-160 mg tablet
1 tab PO DAILY
magnesium oxide 400 mg (241.3 mg magnesium) tablet
400 mg PO TID
loratadine 10 mg tablet
10 mg PO DAILY
budesonide-formoterol [Symbicort] 160-4.5 mcg/actuation HFA aerosol inhaler
2 puff INHALATION BID
sucralfate [Carafate] 1 gram tablet
1 g PO TID PRN (Reason: Gastrointestinal Issue)
melatonin 3 mg Tablet
3 - 6 mg PO HS Qty: 0
budesonide-formoterol [Symbicort] 160-4.5 mcg/actuation HFA aerosol inhaler
2 puff INHALATION R Q4HPRN MDD 12 PUFF/24HRS PRN (Reason: SOB)
diphenhydramine HCl [Benadryl] 25 mg capsule
25 mg PO TID PRN (Reason: headache) Qty: 60 0RF
risperidone 1 mg tablet
2 mg PO BID
Saline Nasal Mist
1 dose intranasal BID
Rx Instructions:
USE IN NASAL RINSE WITH BUDESONIDE
fluticasone propionate 1 SPRAY spray,suspension
2 spray intranasal DAILY PRN (Reason: if nasal rinse unavailable)
ibuprofen 800 mg tablet
800 mg PO Q8H PRN (Reason: mild pain)
omeprazole 40 mg capsule,delayed release(DR/EC)
40 mg PO BID
buspirone 10 mg tablet
15 mg PO TID
folic acid 1 mg Tablet
1 mg PO HS
ergocalciferol (vitamin D2) 1,250 mcg (50,000 unit) capsule
1,250 mcg PO FR
prochlorperazine maleate 10 mg tablet
10 mg PO Q8H PRN (Reason: nausea/vomiting/headache)
Rx Instructions:
as needed every 8 hours nausea/headache
levothyroxine 150 mcg tablet
175 mcg PO DAILY@0500
Qulipta 60 mg Tablet
60 mg PO DAILY
hydroxyzine HCl 25 mg Tablet
25 mg PO .2PM AND 6PM
hydroxyzine HCl 10 mg Tablet
10 mg PO .10 AM AND 12PM
clonazepam 0.5 mg Tablet
0.5 mg PO BID
Patient Comments:
lorazepam was d/c'd and was started on this
Rx Instructions:
8am and 4pm
meclizine 25 mg Tablet
25 mg PO Q8HPRN PRN (Reason: vertigo) Qty: 20 0RF
Discharge Orders:
Discharge Patient (As Directed); Ordered 03/01/25
Ordered By: Jason Fabian
Discharge Date and Time
Discharge Date/Time: 03/01/25 14:45
Print Language: ROMANIAN
[2025-03-01] MEDS: ATARAX 25 MG PO (13:41)
[2025-03-01 14:06] VITALS: BP 150/80
[2025-03-01] MEDS: TORADOL 30 MG IV (14:07)
== END 2025-03-01 14:45 | disposition home or self-care (01) | DRG 103 ==
LOC: 4 WEST ACU 22:09
PROVIDERS: ADMITTING PHYSICIAN Hospitalist; ATTENDING PHYSICIAN Hospitalist; CONSULT PHYSICIAN Psychiatry & Neurology Neurology; EMERGENCY PHYSICIAN Student in an Organized Health Care Education/Training Program; FAMILY PHYSICIAN Nurse Practitioner
DX: G43.009 Migraine without aura, not intractable, without status migrainosus (principal); D83.9 Common variable immunodeficiency, unspecified; Z68.41 Body mass index [BMI] 40.0-44.9, adult; F31.9 Bipolar disorder, unspecified; F44.5 Conversion disorder with seizures or convulsions; E03.9 Hypothyroidism, unspecified; K90.0 Celiac disease; E73.9 Lactose intolerance, unspecified; F41.9 Anxiety disorder, unspecified; K21.9 Gastro-esophageal reflux disease without esophagitis; K58.9 Irritable bowel syndrome, unspecified; J45.909 Unspecified asthma, uncomplicated; E28.2 Polycystic ovarian syndrome; E66.9 Obesity, unspecified; G89.29 Other chronic pain; S09.90XA Unspecified injury of head, initial encounter; W06.XXXA Fall from bed, initial encounter; Z79.890 Hormone replacement therapy; Z82.49 Family history of ischemic heart disease and other diseases of the circulatory system; Z86.16 Personal history of COVID-19; Z79.899 Other long term (current) drug therapy
CPT/HCPCS: 70450; 80048; 80053; 85025; 93005; 94640; 96374; 96375; 99285